=== PATIENT | female | born 1950 | race Caucasian/White ===

== ENCOUNTER → 2023-04-17 10:11 | Outpatient (REF) | payer MEDICARE, OTHER, SELFPAY ==
[2023-04-21 12:49] LABS: Alpha 1 Globulin 0.34 g/dL (0.19-0.46); SPEP IFE Reflex Not Done; Total Protein-Electrophoresis 7.1 g/dL (6.3-8.2)
== END ==
LOC: REG 10:11
PROVIDERS: ATTENDING PHYSICIAN Specialist; FAMILY PHYSICIAN Family Medicine
DX: E83.52 Hypercalcemia (principal); R79.89 Other specified abnormal findings of blood chemistry; N17.9 Acute kidney failure, unspecified; I10 Essential (primary) hypertension
CPT/HCPCS: 36415; 84155; 84165

== ENCOUNTER → 2023-04-20 09:25 | Outpatient (REF) | payer MEDICARE, OTHER, SELFPAY ==
[2023-04-23 16:41] LABS: 24 Hour Urine Total Volume Random mL; Urine Collection Length Random hr; Urine Free Kappa Light Chains 15.97 mg/L (0.00-32.90); Urine Free Lambda Light Chains 2.31 mg/L (0.00-3.79)
== END ==
LOC: REG 09:25
PROVIDERS: ATTENDING PHYSICIAN Specialist
DX: E83.52 Hypercalcemia (principal); R79.89 Other specified abnormal findings of blood chemistry; N17.9 Acute kidney failure, unspecified; I10 Essential (primary) hypertension
CPT/HCPCS: 83521; 84156; 86335

== ENCOUNTER → 2023-07-28 12:55 | Outpatient (REF) | payer MEDICARE, OTHER, SELFPAY | LOC: RAD 12:55 | PROVIDERS: ATTENDING PHYSICIAN Nurse Practitioner Family; FAMILY PHYSICIAN Family Medicine | DX: S39.011A Strain of muscle, fascia and tendon of abdomen, initial encounter (principal) | CPT/HCPCS: 72110; 73502 ==

== ENCOUNTER 2023-10-28 00:55 | Emergency (ER) | payer MEDICARE, OTHER, SELFPAY ==
[2023-10-28 00:58] VITALS: BP 164/69
[2023-10-28 01:01] VITALS: BP 164/69
[2023-10-28 01:08] VITALS: BMI 35.6
--- NOTE | 2023-10-28 01:31 | ED.GENMED ---
History of Present Illness
<Nick Kiser MD - Last Filed: 10/29/23 18:28>
General
Chief Complaint: Musculo-Skeletal Complaint
Source: patient
Exam Limitations: none
Time Seen by Provider: 10/28/23 01:04
Nursing documentation reviewed up to this point in time: agreed with
History of Present Illness
History of Present Illness:
Patient presents to ED secondary to worsening right thigh/leg/knee pain, after her leg gave out while she was walking into her house with her . Patient denies falling, as was able to hold onto her. Patient was able to crawl up the
steps into her bed. However, patient was unable to sleep secondary to worsening pain. Denies any other injuries. Denies loss of sensation or weakness. Of note, patient has had 8-week history of intermittent bilateral leg 'nerve pain', which has
not been evaluated. Patient has attributed her pain to sciatica or pain developing from previous hip surgery.
Past History
<Nick Kiser MD - Last Filed: 10/29/23 18:28>
Past History
ED Past Medical History: HTN and Hypercholesterolemia
ED Past Surgical History: Appendectomy, Cholecystectomy, , Gynecological (Total hysterectomy) and Orthopedic
Social History
Tobacco: Former smoker
Alcohol: None
Drug: None
Personal:
Living: with family
Employment: Employed
Family History
Family History: Other (Noncontributory)
Review of Systems
<Nick Kiser MD - Last Filed: 10/29/23 18:28>
Review of Systems
Allergies reviewed?: Yes
All Other Systems: ROS reviewed and negative except as documented in HPI and ROS
Constitutional: Reports no symptoms
Musculoskeletal: Reports other (knee/thigh pain)
Skin: Reports no symptoms
Neurological: Reports no symptoms; Denies weakness or numbness
Phy Exam
<Nick Kiser MD - Last Filed: 10/29/23 18:28>
Physical Exam
Physical Exam:
Physical Exam
General: mild painful distress, not acutely ill. afebrile
Head: nc/at. eomi
Neck: supple. normal range of motion
Neuro: alert and oriented. no focal neurological deficits
Skin: no rash
Psychiatric: well kept. interactive and cooperative
Extremities: RLE - mild lateral/medial knee tenderness to palpation without swelling/ecchymosis/erythema. no deformity
Course
<Nick Kiser MD - Last Filed: 10/29/23 18:28>
Orders/Labs/Results
Orders:
Orders
10/28/23 01:30
Ibuprofen [Motrin] 600 mg PO NOW STA
Oxycodone/Acetaminophen [Percocet 5/325] 1 tablet PO NOW STA
10/28/23 01:31
CR Knee- Right 4 Or More View* Urgent
Comment:
Reason For Exam: trauma
10/28/23 03:43
Case Management Consult ONCE
Case Management Consult: Discharge Planning
PT Consult [Pt Eval And Treat] Urgent
Activity Level: Out of Bed-Early Mobility
Vital Signs
Initial and Last Documented VS:
Initial Vital Signs
Temp Pulse Resp BP Pulse Ox
98.2 F 68 18 164/69 96
10/28/23 00:58 10/28/23 00:58 10/28/23 00:58 10/28/23 00:58 10/28/23 00:58
Last Documented Vital Signs
Temp Pulse Resp BP Pulse Ox
98 F 71 16 141/62 99
10/28/23 04:18 10/28/23 13:40 10/28/23 13:40 10/28/23 13:40 10/28/23 13:40
<Ernesto Sequeira DO - Last Filed: 10/28/23 13:27>
Orders/Labs/Results
Orders:
Orders
10/28/23 01:30
Ibuprofen [Motrin] 600 mg PO NOW STA
Oxycodone/Acetaminophen [Percocet 5/325] 1 tablet PO NOW STA
10/28/23 01:31
CR Knee- Right 4 Or More View* Urgent
Comment:
Reason For Exam: trauma
10/28/23 03:43
Case Management Consult ONCE
Case Management Consult: Discharge Planning
PT Consult [Pt Eval And Treat] Urgent
Activity Level: Out of Bed-Early Mobility
Vital Signs
Initial and Last Documented VS:
Initial Vital Signs
Temp Pulse Resp BP Pulse Ox
98.2 F 68 18 164/69 96
10/28/23 00:58 10/28/23 00:58 10/28/23 00:58 10/28/23 00:58 10/28/23 00:58
Last Documented Vital Signs
Temp Pulse Resp BP Pulse Ox
98 F 71 16 141/62 99
10/28/23 04:18 10/28/23 13:40 10/28/23 13:40 10/28/23 13:40 10/28/23 13:40
<Nick Kiser MD - Last Filed: 10/29/23 18:28>
*Critical Care Note
Total Time (30-74mins, 75-104mins- exclusive of procedures): Not Applicable
<Ernesto Sequeira DO - Last Filed: 10/28/23 13:27>
Update Note
Update Note:
Patient seen by case management. Offered some resources. Case management states patient does not want to pay for short-term rehab and will follow-up as an outpatient.
0349 patient reassessed. Continues to report inability to stand due to pain. Patient admits that the symptoms have been ongoing for months. She got out of her car today and the pain was much worse. She did not fall or have any new injury. On
exam there is no redness. There is no crepitus. She complains of pain in the posterior upper proximal calf and behind the knee. He reports sometimes pain radiates up toward her buttocks. She has normal dorsalis pedis pulse on the right lower
extremity and her foot is warm and well-perfused. There is no evidence of DVT as there is no palpable cord or edema. She has tenderness when I palpate the posterior calf diffusely. I do not appreciate on exam and effusion. There is no knee
redness or swelling. The patient and her are wondering why they cannot be admitted for an MRI. There is no indication for acute hospitalization. Patient states she just cannot go home because she cannot ambulate. She admits that she had
multiple injections on her left side in the past that 'did not work'. She reports some frustration with that. Will trial course of steroids in case this is neuropathic
ED Attending Note
<Nick Kiser MD - Last Filed: 10/29/23 18:28>
-
Portions of this chart may have been created with voice recognition software.� Occasional wrong word or��sound alike� substitutions may have occurred due to the inherent limitations of voice recognition software.
Discharge Plan
Departure
Patient Disposition: Home (Routine Discharge)
Date of Disposition: 10/28/23
Time of Disposition: 09:35
Patient with high blood pressure during this ER visit?: Yes
Discharge Problem:
Leg pain
Prescriptions:
New
prednisone 10 mg Tablet
See Rx Instructions .ROUTE .COMPLEX Qty: 30 0RF
Rx Instructions:
Take By Mouth:
40 mg daily x3 days, 30 mg daily x3 days,
20 mg daily x3 days, 10 mg daily x3 days.
No Action
aspirin 81 mg Tablet,Delayed Release (Dr/Ec)
81 mg PO DAILY
alprazolam 0.5 mg Tablet
0.5 mg PO HSPRN PRN (Reason: SLEEP)
acetaminophen 325 mg Tablet
500 mg PO QIDPRN PRN (Reason: mild pain)
cholecalciferol (vitamin D3) 50 mcg (2,000 unit) tablet
2,000 units PO DAILY
nifedipine 60 mg Tablet Extended Release
60 mg PO BID Qty: 60 0RF
oxybutynin chloride 10 mg Tablet Extended Release 24hr
10 mg PO DAILY
pravastatin 40 mg Tablet
40 mg PO HS
melatonin 5 mg Tablet
5 mg PO HS
methylprednisolone [Medrol (Gage)] 4 mg tablets,dose pack
See Rx Instructions .ROUTE .COMPLEX Qty: 21 0RF
Rx Instructions:
orally per package directions
oxycodone 5 mg tablet
5 mg PO TID PRN (Reason: Pain) Qty: 8 0RF
dicyclomine 20 mg tablet
20 mg PO QID PRN (Reason: abdominal pain) Qty: 10 0RF
Referrals:
Wilda Reynolds MD [Family Provider] -
Activity Restrictions/Additional Instructions:
Leg pain
Please see your doctor in the next 3 to 5 days for follow-up and reevaluation. Return immediately for fevers, shortness of breath, weakness of any kind or any other concerns.
Interventions
Interventions:
*Risk Screen - Suicide Last Done: 10/28/23 04:10
*General Assessment Last Done: 10/28/23 01:07
*Neglect/Abuse Screening Last Done: 10/28/23 01:08
ED- Fall Risk Assessment Last Done: 10/28/23 01:09
*ED COVID-19 Vaccine History Last Done: 10/28/23 01:09
*Nursing Disposition Last Done: 10/28/23 13:40
ED-Musculoskeletal Assessment Last Done: 10/28/23 01:43
Discharge Date and Time
Discharge Date/Time: 10/28/23 13:41
Print Language: ESTONIAN
[2023-10-28] MEDS: PERCOCET 5/325 1 TABLET PO (02:07)
[2023-10-28] MEDS: MOTRIN 600 MG PO (02:07)
--- NOTE | 2023-10-28 04:11 | EDRN ---
Per ECT, pt's rt. knee DEVON wrapped. Pt. attempted x 2 to stand and walk utilizing walker, unable to dipak weight, screaming in pain both times per ECT. MD Rodgers aware, case management/PT/OT consult ordered.
[2023-10-28 04:18] VITALS: BP 148/75
--- NOTE | 2023-10-28 08:59 | CM ---
Addendum entered by Shadia Ndiaye 10/28/23 10:38:
and went back and forth deciding whether patient should come or not. Patient and decided they would like STR referrals placed. Will place via [facility]. They verbalized understanding and agreed that some facilities may be in
[place] area.
Addendum entered by Shadia Ndiaye 10/28/23 10:14:
Bedside RN shared with CM that patient has more questions about STR in regards to length of stay and pricing. CM shared it may be between $350-$550/day, but that woud have to be confirmed and finalized with whatever facility she chose. Patient
verbalized understanding and stated that paying out of pocket may be 'doable'.
Patient shared that she is anxious because her daughter is 'worked up' due to her cat being 12 years old and maybe needing to be 'put down'. Patient given CM's turning lathe tender to charge her phone while she attemps speaking with her daughter Face Time (while
daughter is at the vet).
Helena was given a list of facilities in [place] and near [place]. CM and patient agreed that CM would come back in about 15 minutes to check on her.
Above information shared with bedside RN and attending physician.
Addendum entered by Shadia Ndiaye 10/28/23 09:18:
VN consult placed via [facility] placed. Also discussed case with Meenu Dewitt, from [facility].
Original Note:
Chart reviewed. CM consult placed for discharge planning. Patient was seen by PT who recommended STR. CM introduced self and role. CM discussed recommendations with patient. Patient has straight medicare and verbalized that she has not had a 3-MN
stay at any other hospitals.
Patient shared that she would not be able to afford STR at this time. She would prefer to go home with PT. She has a first floor set up. Her works 3 days/week.
Above information shared with bedside RN and attending physician.
--- NOTE | 2023-10-28 12:08 | CM ---
Patient chose [facility]. Luzmaria in admissions said patient could come any time today.
Report: [phone]
[2023-10-28 13:40] VITALS: BP 141/62
== END 2023-10-28 13:41 | disposition home or self-care (01) ==
LOC: EMR 00:55
PROVIDERS: EMERGENCY PHYSICIAN Emergency Medicine; FAMILY PHYSICIAN Family Medicine
DX: M79.604 Pain in right leg (principal); E78.00 Pure hypercholesterolemia, unspecified; I10 Essential (primary) hypertension; Z87.891 Personal history of nicotine dependence; Z90.49 Acquired absence of other specified parts of digestive tract; Z90.710 Acquired absence of both cervix and uterus
CPT/HCPCS: 99283; 73564

== ENCOUNTER → 2024-08-05 12:52 | Outpatient (REF) | payer MEDICARE, OTHER, SELFPAY | LOC: HWRAD 12:52 | PROVIDERS: ATTENDING PHYSICIAN Physician Assistant; FAMILY PHYSICIAN Family Medicine; REFERRING PHYSICIAN Orthopaedic Surgery Adult Reconstructive Orthopaedic Surgery | DX: M25.561 Pain in right knee (principal) | CPT/HCPCS: 76882 ==

== ENCOUNTER → 2024-09-21 09:05 | Outpatient (REF) | payer MEDICARE, OTHER, SELFPAY ==
[2024-09-21 10:23] LABS: Hematocrit 43.5 % (37.0-47.0); Hemoglobin 14.1 g/dL (12.0-16.0); Mean Corp Hgb Conc. 32.4 g/dL (33.0-37.0); Mean Corpuscular Volume 89.5 fL (81.0-99.0); Nucleated Red Blood Cells % 0 %; Platelet Count 265 10^3/uL (130-400); Red Cell Dist. Width 13.2 % (11.5-14.5)
[2024-09-21 10:48] LABS: ALT (SGPT) 15 U/L (0-35); AST (SGOT) 19 U/L (14-36); Albumin 4.9 g/dl (3.5-5.0); Alkaline Phosphatase 93 U/L (38-126); Blood Urea Nitrogen 37 mg/dl (7-17); Calcium 9.5 mg/dl (8.4-10.2); Carbon Dioxide 23 mmol/L (22-30); Chloride 110 mmol/L (98-107); Glucose 93 mg/dl (70-99); HDL Cholesterol 59 mg/dl; LDL Cholesterol, Calculated 98 mg/dl; Potassium 4.6 mmol/L (3.5-5.1); Sodium 143 mmol/L (135-145); Total Protein 7.5 g/dl (6.3-8.2); Very Low Density Lipoprotein 33 mg/dl (0-30); eGFR 42.88
[2024-09-21 10:50] LABS: C-Reactive Protein < 5.00 mg/L (0.0-10.00)
[2024-09-21 11:00] LABS: LDL Cholesterol, Direct 94 mg/dl
[2024-09-21 11:07] LABS: Vitamin D, 25-OH*** 52.5 ng/mL (30-80)
[2024-09-21 11:57] LABS: Microalb - Urine Creatinine 226.000 mg/dl
[2024-09-21 12:02] LABS: Microalbumin, Random Urine 2.5 mg/dl (0.6-1.7)
[2024-09-21 13:56] LABS: Glycohemoglobin (HgbA1c) 5.7 % (4.0-5.6)
== END ==
LOC: REG 09:05
PROVIDERS: ATTENDING PHYSICIAN Ophthalmology; OTHER PHYSICIAN Family Medicine
DX: N18.32 Chronic kidney disease, stage 3b (principal); R73.03 Prediabetes; I10 Essential (primary) hypertension; E55.9 Vitamin D deficiency, unspecified; E78.2 Mixed hyperlipidemia; Z79.899 Other long term (current) drug therapy; E21.0 Primary hyperparathyroidism; H47.10 Unspecified papilledema
CPT/HCPCS: 36415; 80053; 80061; 82043; 82306; 82570; 83036; 83721; 83970; 84100; 84443; 85025; 85652; 86140

== ENCOUNTER 2025-01-17 21:08 | Inpatient (IN) | payer MEDICARE, OTHER, SELFPAY ==
[2025-01-17] VITALS (8 sets, daily range): BP systolic 125–162; BP diastolic 58–93; BMI 37.5; BMI 36.3
[2025-01-17 15:56] LABS: Hematocrit 42.1 % (37.0-47.0); Hemoglobin 14.2 g/dL (12.0-16.0); Mean Corp Hgb Conc. 33.7 g/dL (33.0-37.0); Mean Corpuscular Volume 88.1 fL (81.0-99.0); Nucleated Red Blood Cells % 0 %; Platelet Count 248 10^3/uL (130-400); Red Cell Dist. Width 12.5 % (11.5-14.5)
[2025-01-17 16:06] LABS: ALT (SGPT) 38 U/L (0-35); AST (SGOT) 80 U/L (14-36); Albumin 4.6 g/dl (3.5-5.0); Alkaline Phosphatase 102 U/L (38-126); Blood Urea Nitrogen 33 mg/dl (7-17); Calcium 9.6 mg/dl (8.4-10.2); Carbon Dioxide 27 mmol/L (22-30); Chloride 103 mmol/L (98-107); Glucose 97 mg/dl (70-99); Potassium 4.9 mmol/L (3.5-5.1); Sodium 135 mmol/L (135-145); Total Protein 7.6 g/dl (6.3-8.2); eGFR 39.23
[2025-01-17 16:49] LABS: Lipase > 4000 U/L (23-300)
[2025-01-17 17:02] LABS: Troponin I < 0.012 ng/ml
--- NOTE | 2025-01-17 17:35 | ED.GENMED ---
History of Present Illness
<Jonas Velázquez PA-C - Last Filed: 01/17/25 23:27>
General
Chief Complaint: Chest Pain
Source: patient
Time Seen by Provider: 01/17/25 17:15
History of Present Illness
History of Present Illness:
74-year-old female with past medical history of hypertension, hyperlipidemia, previous diverticulitis presenting to the emergency department for evaluation of abdominal pain that started earlier today described to be more generalized accompanied
with 4 episodes of loose bowels, the loose bowels improved after taking Imodium as well as Pepto-Bismol but a few hours ago the pain localized to the epigastrium and periumbilical region and radiated into her back accompanied with nausea but no
vomiting. Pain is described to be 12 out of 10, constant, sharp and burning, no relief with the aforementioned medications. Patient denies any fevers, chills, rigors, urinary symptoms, shortness of breath, palpitations, diaphoresis, exertional
dyspnea orthopnea, cough or any other concerns. Denies any history of similar. Social history was noncontributory.
Past History
<Jonas Velázquez PA-C - Last Filed: 01/17/25 23:27>
Past History
ED Past Medical History: HTN, Hypercholesterolemia and Psychiatric
ED Past Surgical History: Appendectomy, Cholecystectomy, , Gynecological (Total hysterectomy) and Orthopedic
Social History
Tobacco: Former smoker
Alcohol: None
Drug: None
Personal:
Living: with family
Employment: Employed
Family History
Family History: Other (Noncontributory)
Review of Systems
<DRISS Eden Last Filed: 01/17/25 23:27>
Review of Systems
All Other Systems: ROS reviewed and negative except as documented in HPI and ROS
Phy Exam
<DRISS Eden Last Filed: 01/17/25 23:27>
Physical Exam
Physical Exam:
GENERAL: Alert , appears very uncomfortable, shaking
EYE: clear conjunctiva b/l
HEAD: NCAT
ENT: o/p clr, mmm.
CARDIAC: Regular rate and rhythm .
LUNGS: Clear breath sounds bilaterally, no acute respiratory distress, no wheezes/rales/rhonchi
ABDOMEN: Soft, tender in epigastrum and periumbilically, no r/g, no cvat
NEUROLOGICAL: Alert and oriented
SKIN: Warm and dry, skin intact.
MUSCULOSKELETAL: well perfused.
PSYCH: Normal and appropriate interaction.
Scores
<Jonas Velázquez PA-C - Last Filed: 01/17/25 23:27>
Heart Failure Risk
Heart Failure Risk Score: Not Applicable
Heart Score for Chest Pain Patients
STEMI patient?: Not applicable
Withdrawal Assessment of Alcohol
Withdrawal Assessment Completed?: Not applicable
Course
<Jonas Velázquez PA-C - Last Filed: 01/17/25 23:27>
Orders/Labs/Results
Orders:
Orders
01/17/25 15:20
Electrocardiogram (*1) Urgent
Reason for Study: Chest Pain
EKG- Treatment ONCE
01/17/25 15:39
Complete Blood Count/With Diff Urgent
Comprehensive Metabolic Panel Urgent
Lipase Urgent
01/17/25 16:11
Troponin I Urgent
01/17/25 17:31
0.9% Sodium Chloride 1000 ml [Nss] 1,000 ml IV BOLUS
HYDROmorphone [Dilaudid] 1 mg IV NOW STA
Ondansetron Injectable [Zofran] 4 mg IV NOW STA
01/17/25 17:33
CT Abd/pel Without Iv Or Oral Urgent
Comment:
Reason For Exam: abd pain, lipase >4000, cant tolerate PO, CKD
01/17/25 19:45
HYDROmorphone [Dilaudid] 1 mg IV NOW STA
01/17/25 20:28
Admit/Transfer Patient As Directed
Co-Sign Provider:
Level of Care: Inpatient admission
Assign to:: Medical/Surgical
Physician / Group: Ventura Zapien
Diagnosis: Acute pancreatitis
Reason for Hospitalization: Acute pancreatitis
Expected length of stay greater than two midnights?: Yes
ELOS- Estimated Length of Stay in days: 3
I certify the patient meets the requirements for IP care: Yes
PRN Pain Medication Management As Directed
May give lesser potent ordered pain med per pt: Yes
preference::
Protocol:: Medication orders for pain may be administered in a
manner that supports deferring to patient preference
when the pt is:
- Requesting an ordered lesser potent pain medication.
Least to most potent pain medications are defined
as: acetaminophen < NSAID < tramadol < opioids
(morphine, oxycodone, hydromorphone).
- Requesting a lesser dose of the same medication IF
ORDERED.
- Requesting a less intrusive route of administration
if both routes are prescribed by the provider (PO <
IV).
01/17/25 20:29
Code Status As Directed
Resuscitation Status: Full Code
01/17/25 22:09
Acetaminophen [Tylenol] 650 mg PO Q4HPRN PRN
Bisacodyl [Dulcolax] 10 mg RECTAL [id number] PRN
Docusate W/Senna [Senokot-S] 1 tablet PO BIDPRN PRN
HYDROmorphone [Dilaudid] 1 mg IV Q3HPRN PRN
Lactated Ringers [Lr] 1,000 ml IV 150 mls/hr
Ondansetron Injectable [Zofran] 4 mg IV Q6HPRN PRN
Polyethylene Glycol Powder [Miralax] 17 grams PO DAILYPRN PRN
Pravastatin Sodium [Pravachol] 40 mg PO HS
Trazodone [Desyrel] 75 mg PO HS
01/17/25 22:09
GASTROINTESTINAL CONSULT Routine
Consulting Provider: Susan Florence
Was physician already notified: Yes
Activity As Directed
Activity Level: Ambulate
Pneumatic Compression Sleeves As Directed
Type: Knee high
Vital Signs As Directed
Frequency: Per unit guidelines
DX Deep Vein Thrombosis Video Routine
01/18/25 Breakfast
NPO
Allow oral meds: Yes
Allow clear liquids: No
Basic Metabolic Panel IN AM
Complete Blood Count/No Diff IN AM
Lipase IN AM
01/18/25 08:00
NIFEdipine EXTENDED RELEASE [Procardia Xl (Extended Release)] 60 mg PO BID
Abnormal Lab Results
01/17/25
15:39
Absolute Neuts (auto) 8.0 H 10^3/uL
(1.4-6.5)
Absolute Monos (auto) 0.8 H 10^3/uL
(0.1-0.6)
Neutrophils % 75.4 H %
(42.2-75.2)
Lymphocytes % 15.0 L %
(20.5-51.1)
BUN 33 H mg/dl
(7-17)
Creatinine 1.4 H mg/dL
(0.6-1.0)
AST 80 H U/L
(14-36)
ALT 38 H U/L
(0-35)
Lipase > 4000 H* U/L
(23-300)
01/17/25 15:39
01/17/25 15:39
Vital Signs
Initial and Last Documented VS:
Initial Vital Signs
Temp Pulse Resp BP Pulse Ox
97.9 F 76 18 162/90 97
01/17/25 15:26 01/17/25 15:26 01/17/25 15:26 01/17/25 15:26 01/17/25 15:26
Last Documented Vital Signs
Temp Pulse Resp BP Pulse Ox
98.0 F 84 20 158/93 96
01/17/25 22:15 01/17/25 22:15 01/17/25 22:15 01/17/25 22:15 01/17/25 22:15
<Jorge Angel, DO - Last Filed: 01/17/25 17:40>
Orders/Labs/Results
Orders:
Orders
01/17/25 15:20
Electrocardiogram (*1) Urgent
Reason for Study: Chest Pain
EKG- Treatment ONCE
01/17/25 15:39
Complete Blood Count/With Diff Urgent
Comprehensive Metabolic Panel Urgent
Lipase Urgent
01/17/25 16:11
Troponin I Urgent
01/17/25 17:31
0.9% Sodium Chloride 1000 ml [Nss] 1,000 ml IV BOLUS
HYDROmorphone [Dilaudid] 1 mg IV NOW STA
Ondansetron Injectable [Zofran] 4 mg IV NOW STA
01/17/25 17:33
CT Abd/pel Without Iv Or Oral Urgent
Comment:
Reason For Exam: abd pain, lipase >4000, cant tolerate PO, CKD
01/17/25 19:45
HYDROmorphone [Dilaudid] 1 mg IV NOW STA
01/17/25 20:28
Admit/Transfer Patient As Directed
Co-Sign Provider:
Level of Care: Inpatient admission
Assign to:: Medical/Surgical
Physician / Group: Ventura Zapien
Diagnosis: Acute pancreatitis
Reason for Hospitalization: Acute pancreatitis
Expected length of stay greater than two midnights?: Yes
ELOS- Estimated Length of Stay in days: 3
I certify the patient meets the requirements for IP care: Yes
PRN Pain Medication Management As Directed
May give lesser potent ordered pain med per pt: Yes
preference::
Protocol:: Medication orders for pain may be administered in a
manner that supports deferring to patient preference
when the pt is:
- Requesting an ordered lesser potent pain medication.
Least to most potent pain medications are defined
as: acetaminophen < NSAID < tramadol < opioids
(morphine, oxycodone, hydromorphone).
- Requesting a lesser dose of the same medication IF
ORDERED.
- Requesting a less intrusive route of administration
if both routes are prescribed by the provider (PO <
IV).
01/17/25 20:29
Code Status As Directed
Resuscitation Status: Full Code
01/17/25 22:09
Acetaminophen [Tylenol] 650 mg PO Q4HPRN PRN
Bisacodyl [Dulcolax] 10 mg RECTAL [id number] PRN
Docusate W/Senna [Senokot-S] 1 tablet PO BIDPRN PRN
HYDROmorphone [Dilaudid] 1 mg IV Q3HPRN PRN
Lactated Ringers [Lr] 1,000 ml IV 150 mls/hr
Ondansetron Injectable [Zofran] 4 mg IV Q6HPRN PRN
Polyethylene Glycol Powder [Miralax] 17 grams PO DAILYPRN PRN
Pravastatin Sodium [Pravachol] 40 mg PO HS
Trazodone [Desyrel] 75 mg PO HS
01/17/25 22:09
GASTROINTESTINAL CONSULT Routine
Consulting Provider: Susan Florence
Was physician already notified: Yes
Activity As Directed
Activity Level: Ambulate
Pneumatic Compression Sleeves As Directed
Type: Knee high
Vital Signs As Directed
Frequency: Per unit guidelines
DX Deep Vein Thrombosis Video Routine
01/18/25 Breakfast
NPO
Allow oral meds: Yes
Allow clear liquids: No
Basic Metabolic Panel IN AM
Complete Blood Count/No Diff IN AM
Lipase IN AM
01/18/25 08:00
NIFEdipine EXTENDED RELEASE [Procardia Xl (Extended Release)] 60 mg PO BID
Abnormal Lab Results
01/17/25
15:39
Absolute Neuts (auto) 8.0 H 10^3/uL
(1.4-6.5)
Absolute Monos (auto) 0.8 H 10^3/uL
(0.1-0.6)
Neutrophils % 75.4 H %
(42.2-75.2)
Lymphocytes % 15.0 L %
(20.5-51.1)
BUN 33 H mg/dl
(7-17)
Creatinine 1.4 H mg/dL
(0.6-1.0)
AST 80 H U/L
(14-36)
ALT 38 H U/L
(0-35)
Lipase > 4000 H* U/L
(23-300)
01/17/25 15:39
01/17/25 15:39
Vital Signs
Initial and Last Documented VS:
Initial Vital Signs
Temp Pulse Resp BP Pulse Ox
97.9 F 76 18 162/90 97
01/17/25 15:26 01/17/25 15:26 01/17/25 15:26 01/17/25 15:26 01/17/25 15:26
Last Documented Vital Signs
Temp Pulse Resp BP Pulse Ox
98.0 F 84 20 158/93 96
01/17/25 22:15 01/17/25 22:15 01/17/25 22:15 01/17/25 22:15 01/17/25 22:15
<Jonas Velázquez PA-C - Last Filed: 01/17/25 23:27>
MDM/Problems Addressed
Differential Diagnosis Includes:
GERD
Gastritis
PUD
Pancreatitis
ACS
Dissection
Colitis
Diverticulitis
MDM/Problems Addressed:
74-year-old female presenting to the ER for evaluation of GI upset accompanied with severe abdominal pain which started earlier today. No fevers. Hemodynamically stable. Labs were initiated in triage show no leukocytosis, normal hemoglobin.
Chemistry shows stable CKD, slightly elevated AST/ALT and a lipase of greater than 4000 which likely explains the patient's current pain. No obvious etiology for her pancreatitis as patient denied any alcohol history, has a previous
cholecystectomy, no elevated triglycerides and no known trauma. Medication list reviewed and unlikely to be caused by any of the patient's current meds. Will obtain a noncontrast CT scan. Pain control with IV Dilaudid, Zofran for nausea and IV
fluids. Plan for admission
<Jonas Velázquez PA-C - Last Filed: 01/17/25 23:27>
*Radiology
Radiology exam reviewed: radiology read reviewed
*Pulse Oximetry
SaO2: 97
Oxygen Mode of Delivery: Room air
Patient hypoxic: no
*EKG
Interpreted by ED Provider?: Yes
Heart Rate: 73
Rate: normal
Rhythm: sinus
[place]: left axis deviation
Ischemia: no ischemia
*Scouring Train Operator Chief Interpretation
Rate: normal
Heart Rate: 82
Rhythm: sinus
*Critical Care Note
Total Time (30-74mins, 75-104mins- exclusive of procedures): Not Applicable
Data Reviewed
Review of Other/Old Records Reveals: Labs and Records
<Jonas Velázquez PA-C - Last Filed: 01/17/25 23:27>
Patient Management
Discussion with other providers: Hospitalist
Escalation/DeEscalation of care consider admission/obs:
Patient CT scan consistent with her exam findings as well as laboratory findings of acute pancreatitis. Patient accepted to hospitalist service for continued evaluation and treatment.
ED Attending Note
<Jonas Velázquez PA-C - Last Filed: 01/17/25 23:27>
-
Portions of this chart may have been created with voice recognition software.� Occasional wrong word or��sound alike� substitutions may have occurred due to the inherent limitations of voice recognition software.
<Jorge Angel DO - Last Filed: 01/17/25 17:40>
ED Attending Note
Patient seen and examined by attending physician: Yes
I performed the substantive portion of visit, reviewed & personally made and approve the management plan that is documented in note by myself or PEGGY.: Yes
ED Attending Note:
I evaluated the patient at bedside. The patient appears somewhat uncomfortable, mild renal insufficiency, marked lipase elevation at greater than 4000 but LFTs are relatively unremarkable. She denies history of alcoholism and has had a
cholecystectomy in the past. Planning to admit for n.p.o./IV fluids. The patient tells me she really does not want to have an MRI/MRCP.
Discharge Plan
Departure
Patient Disposition: Admit
Date of Disposition: 01/17/25
Time of Disposition: 19:28
Presentation/result/management discussed w/ accepting MD/DO: Hospitalist
Discharge Problem:
Acute pancreatitis
Interventions
Interventions:
*Risk Screen - Suicide Last Done: 01/17/25 15:29
*General Assessment Last Done: 01/17/25 15:29
*Neglect/Abuse Screening Last Done: 01/17/25 15:29
*ED- Fall Risk Assessment Last Done: 01/17/25 18:20
*ED COVID-19 Vaccine History Last Done: 01/17/25 22:48
*ED Influenza Vaccine History Last Done: 01/17/25 15:29
*Nursing Disposition Last Done: 01/17/25 22:03
ED- Cardiac Assessment Last Done: 01/17/25 17:55
Discharge Date and Time
Discharge Date/Time: 01/17/25 22:04
[2025-01-17] MEDS: DILAUDID 1 MG IV ×2 (17:42→19:49)
[2025-01-17] MEDS: ZOFRAN 4 MG IV (17:43)
[2025-01-17] MEDS: NSS 1000 IV (17:44)
--- NOTE | 2025-01-17 19:34 | HPS.HSE ---
Addendum entered and electronically signed by Ventura Zapien DO 01/17/25 22:15:
Patient seen and examined independently. Agree with findings and plan as set forth by NETTE Taylor.
Patient is a 74y F with H significant for hypertension and CKD who presents to ED complaining of epigastric pain, back pain and nausea. Patient states that symptoms started this afternoon and have been persistent / severe since that time. She
had no emesis until she arrived in the ED and has had one episode of non-bloody emesis here. Patient denies any prior h/o similar symptoms. She is s/p prior cholecystectomy. She does not drink alcohol at all.
Ass:
Acute Pancreatitis
Benign Hypertension
CKD III
Anxiety / Depression
Obesity due to excess calories
Plan:
Admit for further evaluation and treatment.
NPO, IVFs, pain control and antiemetics.
Unclear etiology of pancreatitis.
GI consulted for further evaluation.
Original Note:
Family Physician
-
Family Physician: Wilda Reynolds
Chief Complaint
-
epigastric pain
History of Present Illness
Patient is a 74-year-old female with past medical history significant for hypertension, hypercholesterolemia, chronic kidney disease stage 3b and anxiety/depression who presented to [facility] ED for evaluation of epigastric pain that radiated to back.
Patient states that pain started acutely this afternoon while at rest with nausea. She also reports 4 episodes of loose stools today, not dark in color or bleeding present. She took Pepto-Bismol and Imodium. After taking medications patient states
pain was persistent and she has not had another episode of loose stools. Pain described as sharp and constant at a 10 out of 10. Denies any fever, chills, cough, shortness of breath, chest pain, palpitations, vomiting or urinary symptoms.
Medical History
Past Medical History
Past Medical History: Reports Other
Additional Past Medical History:
hypertension
hypercholesterolemia
chronic kidney disease stage 3b
anxiety/depression
lymphedema
hypercalcemia
hyperparathyroidism
sigmoid diverticulitis/diverticulosis
Past Surgical History: Reports Other
Additional Past Surgical History:
appendectomy
cholecystectomy
hysterectomy
[place] - subtotal parathyroidectomy 08/04/23
Right total knee replacement 03/2024
Social History
Tobacco: Former Smoker
Alcohol: None
Personal:
Living: With Family
Employment: Retired
Family History
Family History: Not pertinent
Allergies / Home Medications
Allergies reflects when Allergies were last updated in [facility].
Home Medications with original date entered in [facility]
Allergy/Medication List:
Allergies
Allergy/AdvReac Type Severity Reaction Status Date / Time
cortisone Allergy flushing, Verified 01/17/25 15:29
elevated BP
house dust Allergy sneezing, Verified 01/17/25 15:29
sinus
problems
morphine Allergy Nausea / Verified 01/17/25 15:29
Vomiting
pollen extracts Allergy sneezing, Verified 01/17/25 15:29
sinus
problems
tramadol Allergy Sedation Verified 01/17/25 15:29
'too
strong'
DEVON Inhibitors AdvReac Upset Verified 01/17/25 15:29
stomach
amoxicillin AdvReac upset Verified 01/17/25 15:29
stomach
bacitracin AdvReac upset Verified 01/17/25 15:29
stomach
dextrose AdvReac stomach Verified 01/17/25 15:29
cramps
erythromycin base AdvReac STOMACH Verified 01/17/25 15:29
(Erythromycin Base) CRAMPING
eszopiclone (From Lunesta) AdvReac headache Verified 01/17/25 15:29
and drowsy
levofloxacin (From Levaquin) AdvReac STOMACH Verified 01/17/25 15:29
CRAMPING
meloxicam AdvReac upset Verified 01/17/25 15:29
stomach
potassium AdvReac GI problems Verified 01/17/25 15:29
tizanidine (From Zanaflex) AdvReac Sedation Verified 01/17/25 15:29
Home Medications
nifedipine 60 mg tablet,extended release 60 mg PO BID #60 tabs 05/05/22
pravastatin 40 mg tablet 40 mg PO HS High Cholesterol 11/15/22
baclofen 10 mg tablet 10 mg PO TIDPRN PRN spasms 01/17/25
trazodone 50 mg tablet 75 mg PO HS 01/17/25
Review of Systems
-
History Source: Patient
Constitutional: Denies Fever or Chills
EENT: Denies Sore Throat
Respiratory: Denies Cough, Hemoptysis or Trouble Breathing
Cardiac: Denies Chest Pain, Diaphoresis, Palpitations or Syncope
Abdomen/GI: Reports Abdominal Pain (epigastric radiating to back and constant ), Nausea and Diarrhea; Denies Vomiting, Bloody Stools or Black Stools
: Denies Dysuria, Frequency or Urgency
Musculoskeletal: Denies Joint Pain
Skin: Denies Rash
Neurological: Denies Dizzy, Headache, Weakness or Numbness
Physical Exam
Vital Signs
Vital Signs
Temp Pulse Resp BP Pulse Ox
97.9 F 66 16 139/67 92
01/17/25 15:26 01/17/25 18:45 01/17/25 18:45 01/17/25 18:27 01/17/25 18:45
Physical Exam
General: Well Developed, Well Nourished, Conversant and Obese
HEENT: NormoCephalic, Moist mucous membranes, PERRLA, Nose Appears Normal and Ears Appear Normal
Respiratory: Clear and Non Labored Respirations
Cardiac: S1/S2 and Regular Rhythm
GI: Soft, Non Distended, Normal Bowel Sounds and Tender (mild tenderness in epigastric )
Musculoskeletal: No Clubbing, No Cyanosis and No Edema
Skin: Warm and IV/Catheter Site
Neuro: Awake and AO x 3
Psych: Calm
Laboratory Results
-
01/17/25 15:39
01/17/25 15:39
Laboratory Results
Total Bilirubin 0.8 mg/dl (0.2-1.3) 01/17/25 15:39
AST 80 U/L (14-36) H 01/17/25 15:39
ALT 38 U/L (0-35) H 01/17/25 15:39
Alkaline Phosphatase 102 U/L (38-126) 01/17/25 15:39
Troponin I < 0.012 ng/ml 01/17/25 16:11
Lipase > 4000 U/L (23-300) H* 01/17/25 15:39
Data Reviewed
-
CT Scan: Report Reviewed by me (Abd/Pel: 1. ACUTE INTERSTITIAL EDEMATOUS PANCREATITIS. 2. Moderate to severe chronic bilateral renal disease. 3. Moderate to severe intrahepatic biliary dilatation. 4. Previous cholecystectomy, appendectomy,
and hysterectomy. 5. Severe diverticulosis in the sigmoid colon. 6. Severe multi)
Lab Data: Labs Reviewed by me (BUN 33, creat 1.4, eGFR 39.23, AST 80, ALT 38, lipase >4000)
Impression/Plan
-
IMPRESSION/PLAN:
#epigastric pain 2/2 pancreatitis vs. diverticulitis vs. GERD
acute onset 10/10 sharp epigastric pain radiating to back with associated loose stools and nausea
no alleviating or provoking factors
AST 80, ALT 38, lipase >4000
EKG: SINUS RHYTHM WITH PREMATURE SUPRAVENTRICULAR COMPLEXES
LEFT AXIS DEVIATION
MODERATE VOLTAGE CRITERIA FOR LVH, MAY BE NORMAL VARIANT ( R in aVL , [place] product )
POSSIBLE ANTERIOR INFARCT (CITED ON OR BEFORE 07-Mar-2023)
Abd/Pel CT: 1. ACUTE INTERSTITIAL EDEMATOUS PANCREATITIS.
2. Moderate to severe chronic bilateral renal disease.
3. Moderate to severe intrahepatic biliary dilatation.
4. Previous cholecystectomy, appendectomy, and hysterectomy.
5. Severe diverticulosis in the sigmoid colon.
6. Severe multilevel lumbar and thoracic discogenic degenerative disease.
7. Bilateral total hip arthroplasties in place.
- Admit to med/surg
- Consult GI
- IVF LR 150cc/hr
- pain regimen
- antiemetics
#hypertension
- continue nifedipine
#hypercholesterolemia
- continue pravastatin
#anxiety/depression
- continue trazodone
#chronic kidney disease stage 3b
BUN 33, creat 1.4, eGFR 39.23
- appears stable, monitor BMP
Code status: full code
DVT prophylaxis: heparin sq
[2025-01-17] MEDS: LR 1000 IV (22:27)
[2025-01-17] MEDS: COMPAZINE 5 MG IV (23:00)
--- NOTE | 2025-01-17 23:00 | PTCARENOTE ---
Received patient from ED via stretcher. Patient stood and pivoted from stretcher to bed x2 assist. Patient tremulous, vomiting, and drowsy upon arrival. [employer] made aware, orders for PRN IV compazine. AAOx3, no current complaints of pain. Oriented
patient to room and placed call ventura within reach.
[2025-01-17] MEDS: PRAVACHOL 40 MG PO (23:02)
[2025-01-17] MEDS: DESYREL 75 MG PO (23:02)
[2025-01-18] MEDS: LR 1000 IV ×3 (05:39→19:16)
[2025-01-18 07:45] VITALS: BP 159/79
[2025-01-18 07:48] LABS: Hematocrit 37.5 % (37.0-47.0); Hemoglobin 12.2 g/dL (12.0-16.0); Mean Corp Hgb Conc. 32.5 g/dL (33.0-37.0); Mean Corpuscular Volume 90.8 fL (81.0-99.0); Platelet Count 206 10^3/uL (130-400); Red Cell Dist. Width 12.7 % (11.5-14.5)
[2025-01-18 08:40] LABS: Blood Urea Nitrogen 22 mg/dl (7-17); Calcium 8.6 mg/dl (8.4-10.2); Carbon Dioxide 26 mmol/L (22-30); Chloride 107 mmol/L (98-107); Estimated Creatinine Clearance 50 ml/min; Glucose 86 mg/dl (70-99); Potassium 4.3 mmol/L (3.5-5.1); Sodium 139 mmol/L (135-145); eGFR 52.40
[2025-01-18] MEDS: ZOFRAN 4 MG IV (08:53)
[2025-01-18] MEDS: DILAUDID 1 MG IV (08:53)
[2025-01-18 08:54] LABS: Lipase 2231 U/L (23-300)
[2025-01-18] MEDS: PROCARDIA XL (EXTENDED RELEASE) 60 MG PO ×2 (08:59→20:52)
--- NOTE | 2025-01-18 09:40 | CON.GI ---
Addendum entered and electronically signed by Susan Florence MD 01/18/25 12:07:
I personally performed a history and physical exam of the patient and discussed management with the resident. I reviewed the resident's note and agree with the documented findings and plan of care HPI/CC.
This patient is a 74-year-old woman with a history of an appendectomy, cholecystectomy who was admitted for mid abdominal pain. She did have a lipase that was elevated and a CT that showed acute pancreatitis. She did have a CAT scan approximately
a year ago that commented on some abnormality in her pancreas and recommended an MRI electively which does not appear to have been done.
abd: soft tender
impression:
pancreatitis etiology unclear, no alcohol
plan:
IVFs
pain meds
check triglycerides, IGg4
NPO
MRI/MRCP
Original Note:
Consultation
-
Date/Time Consultation Requested: 01/17/25 22:09
Date/Time Consultation Performed: 01/18/25 8:00
Requesting Provider: Domi Freeman
Performing Provider: Dr. Susan Florence
Medical History
Chief Complaint / HPI
Chief Complaint: pancreatitis
History of Present Illness:
74yoF PMH HTN, CKD, prior cholecystectomy, appendectomy, hysterectomy presenting with severe abdominal pain and episode of emesis in ED.
Pt reported having 10/10 pain across her abdomen and in her lower chest that radiated to her back. She was initially concerned about an IN and promptly presented to the ED where they did further work up finding lipase >[address] evidence of
pancreatitis. Pt denies alcohol use, recent medication changes, or recent travel. No FH or personal hx of autoimmune disorders.
Today, pt reports improved pain. She recently had dose of dilaudid, but reports no pain at rest, just severe pain to palpation on the left side. No nausea or vomiting since Ed yesterday.
Past Medical History
Past Medical History: HTN, Hypercholesterolemia and Renal Failure
Past Surgical History: Appendectomy, Cholecystectomy (over 50 years ago) and Gynecological
Social History
Alcohol: None
Drug: None
Allergies / Home Medications
Allergy/AdvReac Type Severity Reaction Status Date / Time
cortisone Allergy flushing, Verified 01/17/25 15:29
elevated BP
house dust Allergy sneezing, Verified 01/17/25 15:29
sinus
problems
morphine Allergy Nausea / Verified 01/17/25 15:29
Vomiting
pollen extracts Allergy sneezing, Verified 01/17/25 15:29
sinus
problems
tramadol Allergy Sedation Verified 01/17/25 15:29
'too
strong'
DEVON Inhibitors AdvReac Upset Verified 01/17/25 15:29
stomach
amoxicillin AdvReac upset Verified 01/17/25 15:29
stomach
bacitracin AdvReac upset Verified 01/17/25 15:29
stomach
dextrose AdvReac stomach Verified 01/17/25 15:29
cramps
erythromycin base AdvReac STOMACH Verified 01/17/25 15:29
(Erythromycin Base) CRAMPING
eszopiclone (From Lunesta) AdvReac headache Verified 01/17/25 15:29
and drowsy
levofloxacin (From Levaquin) AdvReac STOMACH Verified 01/17/25 15:29
CRAMPING
meloxicam AdvReac upset Verified 01/17/25 15:29
stomach
potassium AdvReac GI problems Verified 01/17/25 15:29
tizanidine (From Zanaflex) AdvReac Sedation Verified 01/17/25 15:29
�Medication �Instructions �Recorded
nifedipine 60 mg tablet,extended 60 mg PO BID #60 tabs 05/05/22
release
pravastatin 40 mg tablet 40 mg PO HS High Cholesterol 11/15/22
baclofen 10 mg tablet 10 mg PO TIDPRN PRN spasms 01/17/25
trazodone 50 mg tablet 75 mg PO HS Mental Health/Anxiety 01/17/25
Review of Systems
Vital Signs
Temp Pulse Resp BP Pulse Ox
98.0 F 84 20 158/93 96
01/17/25 22:15 01/17/25 22:15 01/17/25 22:15 01/17/25 22:15 01/17/25 22:30
Physical Exam
Exam
General: Well Developed, Well Nourished, No Apparent Distress and Comfortable
HEENT: Normocephalic, Anicteric and Moist Mucous Membranes
Respiratory: Clear and Non Labored Respirations
Cardiac: S1/S2 and Regular Rhythm
GI: Soft, Non Distended and Tender (LLQ to deep palpation; just received pain medicine)
Skin: Warm and Dry
Neuro: AO x 3, Sedated (mildly from medication) and Nonfocal/Grossly Intact
Psych: Calm
Results
WBC 6.7 10^3/uL (4.8-10.8) 01/18/25 06:57
Hgb 12.2 g/dL (12.0-16.0) 01/18/25 06:57
Hct 37.5 % (37.0-47.0) 01/18/25 06:57
MCV 90.8 fL (81.0-99.0) 01/18/25 06:57
Plt Count 206 10^3/uL (130-400) 01/18/25 06:57
Absolute Neuts (auto) 8.0 10^3/uL (1.4-6.5) H 01/17/25 15:39
Sodium 139 mmol/L (135-145) 01/18/25 06:57
Potassium 4.3 mmol/L (3.5-5.1) 01/18/25 06:57
Chloride 107 mmol/L (98-107) 01/18/25 06:57
Carbon Dioxide 26 mmol/L (22-30) 01/18/25 06:57
BUN 22 mg/dl (7-17) H 01/18/25 06:57
Creatinine 1.1 mg/dL (0.6-1.0) H 01/18/25 06:57
Calcium 8.6 mg/dl (8.4-10.2) 01/18/25 06:57
Total Bilirubin 0.8 mg/dl (0.2-1.3) 01/17/25 15:39
AST 80 U/L (14-36) H 01/17/25 15:39
ALT 38 U/L (0-35) H 01/17/25 15:39
Alkaline Phosphatase 102 U/L (38-126) 01/17/25 15:39
Lipase 2231 U/L (23-300) H* 01/18/25 06:57
Diagnostic Image Results: CT
1. ACUTE INTERSTITIAL EDEMATOUS PANCREATITIS.
2. Moderate to severe chronic bilateral renal disease.
3. Moderate to severe intrahepatic biliary dilatation.
4. Previous cholecystectomy, appendectomy, and hysterectomy.
5. Severe diverticulosis in the sigmoid colon.
6. Severe multilevel lumbar and thoracic discogenic degenerative disease.
7. Bilateral total hip arthroplasties in place.
Prior GI Procedures: Prior cholecystectomy pt reports in her 20s
EGD: 03/11/23
- Normal esophagus.
- Erythematous mucosa in the stomach. Biopsied.
- Normal examined duodenum. Biopsied.
- Biopsies were taken with a cold forceps for
evaluation of eosinophilic esophagitis.
- A few gastric polyps. Biopsied.
A. Duodenum, biopsy:
? Duodenal mucosa with focal foveolar metaplasia.
? No increase in intraepithelial lymphocytes identified.
B. Stomach, biopsy:
? Gastric oxyntic mucosa with mild chronic inflammation.
? No curvilinear Helicobacter microorganisms identified, supported with negative
immunohistochemical stain for H. pylori*.
*This test has not been cleared or approved by the [place] Food and Drug Administration.
C. Stomach, polyp, biopsy:
? Gastric oxyntic mucosa with focal changes suggestive of fundic gland polyp.
D. Esophagus, distal, biopsy:
? Squamous mucosa with no significant pathologic findings.
? No intraepithelial eosinophils seen.
E. Esophagus, proximal, biopsy:
? Squamous mucosa with no significant pathologic findings.
? No intraepithelial eosinophils seen
Colonoscopy: 12/26/22
The examined portion of the ileum was normal.
- Diverticulosis in the sigmoid colon, in the
descending colon and in the transverse colon.
- Three 1 to 2 mm polyps in the descending colon, in
the transverse colon and in the cecum, removed with a
jumbo cold forceps. Resected and retrieved.
- One 5 mm polyp in the transverse colon, removed with
a cold snare. Resected and retrieved.
- Scar in the transverse colon and at the hepatic
flexure.
- Internal hemorrhoids.
- Anal papilla(e) were hypertrophied.
A. Colon, cecum, polypectomy:
? Tubular adenoma.
B. Colon, transverse, polypectomy:
? Tubular adenoma.
C. Colon, transverse, cold snare, polypectomy:
? Tubular adenoma.
D. Colon, descending, polypectomy:
? Colonic mucosa with focal lymphoid aggregate and surface epithelial hyperplasia
EKG
SINUS RHYTHM WITH PREMATURE SUPRAVENTRICULAR COMPLEXES
LEFT AXIS DEVIATION
MODERATE VOLTAGE CRITERIA FOR LVH, MAY BE NORMAL VARIANT ( R in aVL , [place]
product )
POSSIBLE ANTERIOR INFARCT (CITED ON OR BEFORE 07-Mar-2023)
ABNORMAL ECG
WHEN COMPARED WITH ECG OF 07-Mar-2023 12:42,
PREMATURE SUPRAVENTRICULAR COMPLEXES ARE NOW PRESENT
Assessment / Plan
-
74yoF PMH HTN, HLD, CKD, cholecystectomy 50 years ago, appendectomy, hysterectomy presenting with pancreatitis.
AFVSS. CBC WNL. Lipase >4000. No hx autoimmune dx. No alcohol use, recent travel, or change in medications. Pt has PRN balcofen for back pain that she describes as taking it over the last few days for worsening of her pain; planned for MRI at
[facility] next week for her back. Ct demonstrates pancreatitis and moderate to severe intrahepatic biliary dilation.
CT 2 years ago demonstrated subtle low-attenuation of head of pancreas recommended for MRI. Pt has scans dating back to 2008 demonstrating this mass as stable size with possible increased visibility due to fat infiltration. Unable to rule out this
mass as inciting factor currently.
#pancreatitis
- Can trial clear diet
- Continue pain regimen. Added toradol
- Continue IVF and supportive measures
- Check lipid panel
Pending attending recommendations
-
-
Thank you for consultation and allowing me to participate in the patient's care. Please call the integration specialist GI physician during the after hours with any questions or concerns.
[2025-01-18 11:01] LABS: HDL Cholesterol 60 mg/dl; LDL Cholesterol, Calculated 61 mg/dl; Very Low Density Lipoprotein 13 mg/dl (0-30)
--- NOTE | 2025-01-18 12:37 | W.PN.HOSP.TC ---
Today's Communication/Plan
-
IV fluids. MRCP
Assessment / Plan
Assessment / Plan
Physical exam:
General: Acutely ill
HEENT: Normocephalic, Atraumatic and Moist Mucous Membranes
Respiratory: Clear to Auscultation; Negative Wheezes, Rales or Rhonchi
Cardiac: Regular Rhythm and S1/S2
GI: Soft, tender and Nondistended
Musculoskeletal: No Clubbing, No Cyanosis and No Edema
Neuro: Awake, Alert and Oriented
Psych: Calm
A/P:
Acute pancreatitis:
Continue IV fluid
Continue n.p.o.
GI consult appreciated
Plan for possible MRCP
Check IgG4, triglycerides
Hypertension:
Continue home antihypertensive
Hyperlipidemia:
Continue statin
CAROLINE on CKD stage III:
On IV fluids
Avoid nephrotoxic
Monitor renal function
Depression anxiety:
Continue antidepressants
DVT prophylaxis:
Start heparin SQ
CODE STATUS:
Full code
Total time spent on today's encounter was 52 minutes which included time spent in counseling the patient/family regarding diagnosis and treatment plan as listed above, goals of care, and symptom management. Case was discussed with nursing staff,
specialists, and care coordinators/case management. All labs and imaging personally reviewed by me. Remainder the time spent in detailed review of previous records, lab data, imaging, and other medical provider documentation.
Anticipated Discharge: 24 - 48 hours
Subjective/Interval History
-
Date of Service: January 18, 2025
Objective Data
-
Labs:
Laboratory Results
01/18/25
06:57
WBC 6.7
Hgb 12.2
Hct 37.5
Plt Count 206
Sodium 139
Potassium 4.3
Chloride 107
Carbon Dioxide 26
BUN 22 H
Creatinine 1.1 H
Glucose 86
Calcium 8.6
Vital Signs:
Vital Signs
Temp Pulse Resp BP Pulse Ox
97.6 F 54 16 159/79 97
01/18/25 07:45 01/18/25 07:45 01/18/25 07:45 01/18/25 07:45 01/18/25 07:45
I&O
01/17/25 01/18/25 01/19/25
06:59 06:59 06:59
Output Total 150 / 150
Balance -150 / -150
[2025-01-18 15:45] VITALS: BP 149/76
[2025-01-18] MEDS: TORADOL 15 MG IV (15:57)
[2025-01-18] MEDS: HEPARIN 5000 UNITS SC ×2 (17:07→23:16)
--- NOTE | 2025-01-18 18:14 | CM ---
IA completed. IMM given on 01/17. Pt lives in [address] [place] [address] with her .PT has been independent in ADLs and IADLs. There are 3 steps at the entrance to the home and 14 steps inside the home.. Full BR on 2nd floor. Hx of HH- PT after knee
surgery. Hx of SNF at [facility]. No insecurities identified. Confirmed PCP, Rx, insurance and drug coverage.
PCP: Wilda Reynolds
RX: [facility] in [place]
Continues to have pain requiring IV pain med. Scheduled for MRI
Plan: Home with no needs. Will watch for discharge needs
[2025-01-18] MEDS: PRAVACHOL 40 MG PO (20:53)
[2025-01-18] MEDS: DESYREL 75 MG PO (20:53)
[2025-01-18 23:11] VITALS: BP 154/75
[2025-01-18] MEDS: MELATONIN 5 MG PO (23:44)
[2025-01-19] MEDS: LR 1000 IV ×2 (01:23→07:45)
[2025-01-19 06:36] LABS: Hematocrit 40.7 % (37.0-47.0); Hemoglobin 13.7 g/dL (12.0-16.0); Mean Corp Hgb Conc. 33.7 g/dL (33.0-37.0); Mean Corpuscular Volume 86.6 fL (81.0-99.0); Platelet Count 199 10^3/uL (130-400); Red Cell Dist. Width 12.3 % (11.5-14.5)
[2025-01-19 07:08] LABS: ALT (SGPT) 74 U/L (0-35); AST (SGOT) 49 U/L (14-36); Albumin 4.1 g/dl (3.5-5.0); Alkaline Phosphatase 117 U/L (38-126); Blood Urea Nitrogen 13 mg/dl (7-17); Calcium 9.5 mg/dl (8.4-10.2); Carbon Dioxide 29 mmol/L (22-30); Chloride 103 mmol/L (98-107); Estimated Creatinine Clearance 55 ml/min; Glucose 83 mg/dl (70-99); Lipase 199 U/L (23-300); Potassium 3.8 mmol/L (3.5-5.1); Sodium 136 mmol/L (135-145); Total Protein 6.8 g/dl (6.3-8.2); eGFR 58.75
[2025-01-19 07:31] VITALS: BP 144/77
[2025-01-19] MEDS: HEPARIN 5000 UNITS SC ×3 (07:42→23:08)
[2025-01-19] MEDS: PROCARDIA XL (EXTENDED RELEASE) 60 MG PO ×2 (07:42→20:45)
--- NOTE | 2025-01-19 08:39 | W.PN.GI.CBS2 ---
Addendum entered and electronically signed by Susan Florence MD 01/19/25 10:19:
I saw and evaluated the patient. I reviewed the resident�s note and agree with findings and plan as documented in the resident�s note.
Pt with marked improvement with resolution of abd pain
abd: soft, nontender
lipase normalized
impression:
pancreatitis
abnl imaging
plan:
start clears and will advance as tolerated
will hold off on MRI/MRCP would prefer a good outpatient study in light of question of pancreas head abnl
will d/w Dr. Pang to see if he prefers EUS and timing
Original Note:
Today's Communication / Plan
-
Pending attending recommendations
MRCP today
Assessment / Plan
-
74yoF PMH HTN, HLD, CKD, cholecystectomy 50 years ago, appendectomy, hysterectomy presenting with pancreatitis.
AFVSS. CBC WNL. Lipase >4000. No hx autoimmune dx. No alcohol use, recent travel, or change in medications. Pt has PRN balcofen for back pain that she describes as taking it over the last few days for worsening of her pain; planned for MRI at
[place] next week for her back. Ct demonstrates pancreatitis and moderate to severe intrahepatic biliary dilation.
CT 2 years ago demonstrated subtle low-attenuation of head of pancreas recommended for MRI. Pt has scans dating back to 2008 demonstrating this mass as stable size with possible increased visibility due to fat infiltration. Unable to rule out this
mass as inciting factor currently.
AFVSS. AST 49 ALT 74. Pt has resolution of symptoms, feeling better today without pain. Pending MRCP. Triglycerides 69 WNL, Total cholesterol 134, LDL 61, VLDL 13, HDL 60.
#pancreatitis
- Clear diet can be advanced
- Continue pain regimen. Added toradol
- Continue IVF and supportive measures
- Pending IgG4
- MRCP can be canceled due to resolution of symptoms
Subjective
Subjective
Date of Service: January 19, 2025
Pt reports no pain today. She denies nausea, vomiting. No BM since admission. She reports tolerating apple juice but has not consumed anything else.
Objective
Data Reviewed
Laboratory Data:
Laboratory Results
01/19/25 06:20
01/19/25 06:20
Laboratory Results
Total Bilirubin 0.9 mg/dl (0.2-1.3) 01/19/25 06:20
AST 49 U/L (14-36) H 01/19/25 06:20
ALT 74 U/L (0-35) H 01/19/25 06:20
Alkaline Phosphatase 117 U/L (38-126) 01/19/25 06:20
Lipase 199 U/L (23-300) 01/19/25 06:20
Vital Signs and I&O:
Vital Signs
Temp Pulse Resp BP Pulse Ox
97.9 F 65 18 144/77 95
01/19/25 07:31 01/19/25 07:31 01/19/25 07:31 01/19/25 07:31 01/19/25 07:31
I&O
01/18/25 01/19/25 01/20/25
06:59 06:59 06:59
Output Total 150 / 150
Balance -150 / -150
Physical Exam
Physical Exam
HEENT: Anicteric and Moist mucous membranes
Cardiology: Normal Sinus Rhythm
Pulmonary: Other (nonlabored breathing)
GI: Soft, Non Distended and Non Tender
Extremities: No Edema
Neuro: Non Focal
--- NOTE | 2025-01-19 11:55 | W.PN.HOSP.TC ---
Today's Communication/Plan
-
Advance diet
Assessment / Plan
Assessment / Plan
Physical exam:
General: Acutely ill
HEENT: Normocephalic, Atraumatic and Moist Mucous Membranes
Respiratory: Clear to Auscultation; Negative Wheezes, Rales or Rhonchi
Cardiac: Regular Rhythm and S1/S2
GI: Soft, tender and Nondistended
Musculoskeletal: No Clubbing, No Cyanosis and No Edema
Neuro: Awake, Alert and Oriented
Psych: Calm
A/P:
Acute pancreatitis:
Continue IV fluid but decrease rate
Start clear liquid diet and advance as tolerated
GI consult appreciated
Cancel MRCP since patient improving per GI recommendation
Checked IgG4, triglycerides
Hypertension:
Continue home antihypertensive
Hyperlipidemia:
Continue statin
CAROLINE on CKD stage III:
On IV fluids
Avoid nephrotoxic
Monitor renal function
Depression anxiety:
Continue antidepressants
DVT prophylaxis:
Start heparin SQ
CODE STATUS:
Full code
Total time spent on today's encounter was 35 minutes which included time spent in counseling the patient/family regarding diagnosis and treatment plan as listed above, goals of care, and symptom management. Case was discussed with nursing staff,
specialists, and care coordinators/case management. All labs and imaging personally reviewed by me. Remainder the time spent in detailed review of previous records, lab data, imaging, and other medical provider documentation.
Anticipated Discharge: Within 24 hours
Subjective/Interval History
-
Date of Service: January 19, 2025
Patient feels better today, no abdominal pain, less nausea, no vomiting. Afebrile
Objective Data
-
Labs:
Laboratory Results
01/19/25
06:20
WBC 6.9
Hgb 13.7
Hct 40.7
Plt Count 199
Sodium 136
Potassium 3.8
Chloride 103
Carbon Dioxide 29
BUN 13
Creatinine 1.0
Glucose 83
Calcium 9.5
Total Bilirubin 0.9
AST 49 H
ALT 74 H
Alkaline Phosphatase 117
Vital Signs:
Vital Signs
Temp Pulse Resp BP Pulse Ox
97.9 F 65 18 144/77 95
01/19/25 07:31 01/19/25 07:31 01/19/25 07:31 01/19/25 07:31 01/19/25 07:31
I&O
01/18/25 01/19/25 01/20/25
06:59 06:59 06:59
Output Total 150 / 150
Balance -150 / -150
[2025-01-19 15:37] VITALS: BP 154/76
--- NOTE | 2025-01-19 15:57 | CM ---
Continues to have pain requiring IV pain med and is on IVF
Plan: Home with no needs. Will watch for discharge needs
[2025-01-19] MEDS: TYLENOL 650 MG PO (20:38)
[2025-01-19] MEDS: PRAVACHOL 40 MG PO (20:46)
[2025-01-19] MEDS: MELATONIN 5 MG PO (21:50)
[2025-01-19] MEDS: DESYREL 75 MG PO (23:15)
[2025-01-19 23:22] VITALS: BP 145/72
[2025-01-20] MEDS: LR IV (02:27)
[2025-01-20 07:45] VITALS: BP 143/79
--- NOTE | 2025-01-20 08:23 | CM ---
Addendum entered by Vita Shafer 01/20/25 12:51:
Pt discharged to home with no needs. will transport her home.
Original Note:
Imm given and placed on chart. Possible DC
Plan: Home, no needs
[2025-01-20] MEDS: HEPARIN SC (09:24)
[2025-01-20] MEDS: PROCARDIA XL (EXTENDED RELEASE) 60 MG PO (09:26)
[2025-01-20] MEDS: TYLENOL 650 MG PO (09:26)
--- NOTE | 2025-01-20 10:42 | W.PN.GI.CBS2 ---
Addendum entered and electronically signed by Tonio Pang MD 01/20/25 12:53:
I saw and examined the patient.
The PA's note was reviewed and I agree with the note.
Comment:
74 year old female p/w idiopathic acute pancreatitis. Clinically improving. Imaging here showed ? subtle low-attenuating lesion in HOP, however this was followed up with MRI on 01/2023 which showed normal pancreas w/o mass lesions. Pt wants to
f/u with Dr. Orr as OP. HbA1c 5.7. Can consider OP EUS for further evaluation. Ok to d/c home, GI s/o.
Original Note:
Today's Communication / Plan
-
Pending attending recommendations
Assessment / Plan
-
74yoF PMH HTN, HLD, CKD, cholecystectomy 50 years ago, appendectomy, hysterectomy presenting with pancreatitis.
AFVSS. CBC WNL. Lipase >4000. No hx autoimmune dx. No alcohol use, recent travel, or change in medications. Pt has PRN balcofen for back pain that she describes as taking it over the last few days for worsening of her pain; planned for MRI at
[place] next week for her back. Ct demonstrates pancreatitis and moderate to severe intrahepatic biliary dilation.
CT 2 years ago demonstrated subtle low-attenuation of head of pancreas recommended for MRI. Pt has scans dating back to 2008 demonstrating this mass as stable size with possible increased visibility due to fat infiltration.
AFVSS. AST 49 ALT 74. Pt has resolution of symptoms, feeling better today without pain. Pending MRCP. Triglycerides 69 WNL, Total cholesterol 134, LDL 61, VLDL 13, HDL 60.
AFVSS. Pt tolerated diet yesterday and feels well with no complaints. Pancreatic mass seen on CT was followed up on MRI with outpt GI physician Dr. Orr demonstrating no mass on MRI in 2022. Resolved pancreatitis.
Subjective
Subjective
Date of Service: January 20, 2025
Pt feels well today, ready to go home. She reports tolerating a diet well yesterday without pain or nausea.
Objective
Data Reviewed
Laboratory Data:
Laboratory Results
01/19/25 06:20
01/19/25 06:20
Laboratory Results
Total Bilirubin 0.9 mg/dl (0.2-1.3) 01/19/25 06:20
AST 49 U/L (14-36) H 01/19/25 06:20
ALT 74 U/L (0-35) H 01/19/25 06:20
Alkaline Phosphatase 117 U/L (38-126) 01/19/25 06:20
Lipase 199 U/L (23-300) 01/19/25 06:20
Vital Signs and I&O:
Vital Signs
Temp Pulse Resp BP Pulse Ox
98.2 F 62 18 143/79 94
01/20/25 07:45 01/20/25 07:45 01/20/25 07:45 01/20/25 07:45 01/20/25 07:45
I&O
01/19/25 01/20/25 01/21/25
06:59 06:59 06:59
Intake Total 520 / 520
Balance 520 / 520
Physical Exam
Physical Exam
HEENT: Anicteric and Moist mucous membranes
Cardiology: Normal Sinus Rhythm
Pulmonary: Clear
GI: Soft, Non Distended and Non Tender
Extremities: No Edema
Neuro: Non Focal
--- NOTE | 2025-01-20 11:53 | W.PN.HOSP.TC ---
Addendum entered and electronically signed by Robert Miller MD 01/20/25 14:06:
CAROLINE was present and is a clinical diagnosis based on increase in serum creatinine by > or = to 0.3 mg/dL within 48 hours. Creatinine was 1.4 on 01/17 and after hydration creatinine went down to her normal Creatinine 1.0 today 01/19. Creatinine
baseline 1.0 back in 11/2022.
Original Note:
Today's Communication/Plan
-
Discharge planning today
Assessment / Plan
Assessment / Plan
Physical exam:
General: No acute distress
HEENT: Normocephalic, Atraumatic and Moist Mucous Membranes
Respiratory: Clear to Auscultation; Negative Wheezes, Rales or Rhonchi
Cardiac: Regular Rhythm and S1/S2
GI: Soft, non tender and Nondistended
Musculoskeletal: No Clubbing, No Cyanosis and No Edema
Neuro: Awake, Alert and Oriented
Psych: Calm
A/P:
Acute pancreatitis:
Stop IV fluids
Tolerated advancing diet
GI consult appreciated
Cancel MRCP since patient improving per GI recommendation
Checked IgG4, triglycerides
Discussed with GI and cleared for discharge today
Hypertension:
Continue home antihypertensive
Hyperlipidemia:
Continue statin
CAROLINE on CKD stage III:
On IV fluids
Avoid nephrotoxic
Monitor renal function
Depression anxiety:
Continue antidepressants
DVT prophylaxis:
Start heparin SQ
CODE STATUS:
Full code
Anticipated Discharge: Today
Subjective/Interval History
-
Date of Service: January 20, 2025
Patient feels well. No new complaints
Objective Data
-
Vital Signs:
Vital Signs
Temp Pulse Resp BP Pulse Ox
98.2 F 62 18 143/79 94
01/20/25 07:45 01/20/25 07:45 01/20/25 07:45 01/20/25 07:45 01/20/25 07:45
I&O
01/19/25 01/20/25 01/21/25
06:59 06:59 06:59
Intake Total 520 / 520
Balance 520 / 520
--- NOTE | 2025-01-20 11:59 | W.DCSUMMARY ---
Discharge Summary
Discharge Data
Date of Admission: 01/17/25
Date of Discharge: 01/20/25
Total time spent discharging patient (in min): 35
-
Pending Results: No
Hospital Course
Patient 74 years old female with history of hypertension, CKD, came into the hospital with acute pancreatitis. She was kept n.p.o. and IV fluids and her pancreatitis improved. GI consulted and followed her through this hospital stay. She also had
evidence of hypodensity at the level of the head of the pancreas by previous CT scan of the abdomen and GI discussed to do an MRI as outpatient since patient is improving and claustrophobic. Patient pancreatic enzymes came back down to normal. Her
pain subsided completely. She is also tolerating regular diet without any problems. She is ambulating without difficulties. Patient also had evidence of CAROLINE that resolved with IV fluid. She will be discharged in stable condition today.
Discharge duration: 35 minutes
Discharge Plan
-
Patient Disposition: Home (Routine Discharge)
Discharge Diagnosis/Procedures: Acute pancreatitis. Acute kidney injury. Pancreatic head low-attenuation lesion.
Diet: Low Fat
Activity: As tolerated
Blood Work: Please PCP to order CBC, CMP within 1 week
Referrals:
Wilda Reynolds MD [Family Provider, Family Practice] - in less than 1 week
Denny Orr MD [Active, Gastroenterology] - in two to four weeks
Prescriptions:
Continued
nifedipine 60 mg Tablet Extended Release
60 mg PO BID Qty: 60 0RF
pravastatin 40 mg Tablet
40 mg PO HS
trazodone 50 mg tablet
75 mg PO HS
baclofen 10 mg tablet
10 mg PO TIDPRN PRN (Reason: spasms)
Discharge Orders:
Discharge Patient (As Directed); Ordered 01/20/25
Ordered By: Robert Miller
Discharge Date and Time
Discharge Date/Time: 01/20/25 13:48
Print Language: TAIWANESE
[2025-01-20 12:51] VITALS: BP 133/57
--- NOTE | 2025-01-20 13:24 | PN.CDI ---
CDI
- -
CDI:
Physician Documentation Request
Admit Date: 01/17/25 21:08
Dear Doctor Paul,
Progress notes include a diagnosis of CAROLINE on CKD stage III
Creatinine results:
Laboratory Tests
01/17/25 01/18/25 01/19/25
15:39 06:57 06:20
Creatinine 1.4 H 1.1 H 1.0
Criteria for CAROLINE*
1 Increase in serum creatinine by > or = to 0.3 mg/dL (> or = to 26.5 micromol/L) within 48 hours, OR
2 Increase in serum creatinine to > or = to 1.5 times baseline, which is known or presumed to have occurred within 7 days, OR
3 Urine volume < 0.5 nL/kg/hour for six hours
Based on the above information and the recognized standard for CAROLINE could you please verify this diagnoses is still accurate and reflective of the patient�s condition to ensure quality of the medical record.
Please clarify in the Progress Notes:
�CAROLINE is/was present and is a clinical diagnosis based on (please include this additional support in the medical record)
�After study CAROLINE has been ruled out
�Other
Use of terms such as suspected, likely, concern for, or probable (associated with a specific diagnosis that is being evaluated, monitored, or treated as if it exists) are acceptable and can be coded in the inpatient setting, when documented at the
time of discharge.
Thank you,
Hattie Jones RN, BSN
CDI Specialist
tiger text
Please use your independent medical judgment in providing your response.
== END 2025-01-20 13:48 | disposition home or self-care (01) | DRG 439 ==
LOC: 4 EAST ACU 21:08
PROVIDERS: Emergency Medicine; Nurse Practitioner Family; ADMITTING PHYSICIAN Hospitalist; ATTENDING PHYSICIAN Hospitalist; CONSULT PHYSICIAN Internal Medicine; EMERGENCY PHYSICIAN Emergency Medicine; FAMILY PHYSICIAN Family Medicine
DX: K85.80 Other acute pancreatitis without necrosis or infection (principal); N17.9 Acute kidney failure, unspecified; N18.32 Chronic kidney disease, stage 3b; I12.9 Hypertensive chronic kidney disease with stage 1 through stage 4 chronic kidney disease, or unspecified chronic kidney disease; F40.240 Claustrophobia; F32.A Depression, unspecified; E66.09 Other obesity due to excess calories; Z68.36 Body mass index [BMI] 36.0-36.9, adult; Z90.49 Acquired absence of other specified parts of digestive tract; E78.00 Pure hypercholesterolemia, unspecified; I89.0 Lymphedema, not elsewhere classified; E21.3 Hyperparathyroidism, unspecified; Z96.651 Presence of right artificial knee joint; Z87.891 Personal history of nicotine dependence; Z88.5 Allergy status to narcotic agent; K31.7 Polyp of stomach and duodenum; Z79.899 Other long term (current) drug therapy; Z90.710 Acquired absence of both cervix and uterus; Z96.643 Presence of artificial hip joint, bilateral
CPT/HCPCS: 74176; 80048; 80053; 80061; 82787; 83690; 84484; 85025; 85027; 87070; 93005; 96361; 96374; 96375; 96376; 99285

== ENCOUNTER → 2025-02-01 10:23 | Outpatient (REF) | payer MEDICARE, OTHER, SELFPAY | LOC: RCS 10:23 | PROVIDERS: ATTENDING PHYSICIAN Internal Medicine Cardiovascular Disease; FAMILY PHYSICIAN Family Medicine | DX: I10 Essential (primary) hypertension (principal); R61 Generalized hyperhidrosis; R94.31 Abnormal electrocardiogram [ECG] [EKG]; R10.32 Left lower quadrant pain | CPT/HCPCS: 74177; 93306; Q9967 ==

== ENCOUNTER 2025-02-11 11:41 | Inpatient (IN) | payer MEDICARE, OTHER, SELFPAY ==
[2025-02-10] VITALS (10 sets, daily range): BP systolic 120–175; BP diastolic 53–93; BMI 35.7
[2025-02-10] MEDS: DILAUDID 0.5 MG IV ×2 (09:46→11:25)
[2025-02-10] MEDS: NSS 1000 IV (09:46)
[2025-02-10 09:55] LABS: Hematocrit 43.6 % (37.0-47.0); Hemoglobin 14.8 g/dL (12.0-16.0); Mean Corp Hgb Conc. 33.9 g/dL (33.0-37.0); Mean Corpuscular Volume 88.3 fL (81.0-99.0); Nucleated Red Blood Cells % 0 %; Platelet Count 261 10^3/uL (130-400); Red Cell Dist. Width 12.9 % (11.5-14.5)
--- NOTE | 2025-02-10 10:03 | ED.GENMED ---
History of Present Illness
<Opal Soria [employer] - Last Filed: 02/10/25 17:27>
General
Chief Complaint: Abdominal Pain
Source: patient and spouse
Exam Limitations: none
Time Seen by Provider: 02/10/25 09:24
Nursing documentation reviewed up to this point in time: agreed with
History of Present Illness
History of Present Illness:
74-year-old female with a past medical history significant for admitted here 01/17-01/20 pancreatitis, who presents with abdominal pain. The pain began two weeks ago when she was admitted to the hospital for pancreatitis and discharged after three
days. Her pain mid to left abdomen now has worsened since yesterday evening after eating turkey dinner, with the current intensity rated at 10/10, Zofran given by EMS. The patient is experiencing nausea but no vomiting, and she denies alcohol use.
She lives with her , denies smoking, and had a bowel movement yesterday which was 'mushy.'
She has an upcoming appointment with her family doctor in 3 days. Denies CP, SOB. Denies fever/chills. States she was up all night urinating frequently.
Past History
<Opal Soria, [employer] - Last Filed: 02/10/25 17:27>
Past History
ED Past Medical History: HTN, Hypercholesterolemia and Psychiatric
ED Past Surgical History: Appendectomy, Cholecystectomy, , Gynecological (Total hysterectomy) and Orthopedic
Social History
Tobacco: Former smoker
Alcohol: None
Drug: None
Personal:
Living: with family
Employment: Employed
Family History
Family History: Other (Noncontributory)
Review of Systems
<Opal Soria, [employer] - Last Filed: 02/10/25 17:27>
Review of Systems
Allergies reviewed?: Yes
All Other Systems: ROS reviewed and negative except as documented in HPI and ROS
Phy Exam
<Opal Soria, [employer] - Last Filed: 02/10/25 17:27>
Physical Exam
Physical Exam:
GENERAL: No acute distress. A&Ox3.
CONSTITUTIONAL: Afebrile.
EYES: clear, conjunctivae normal
ENMT: moist mucus membranes, Pharynx nl
RESPIRATORY: Regular respirations, nonlabored, lungs clear.
CARDIOVASCULAR: Regular rate and rhythm, no murmurs, no rubs.
GI: Soft, tender mid to left abdomen, normal BS
MUSCULOSKELETAL: Moves with ease. Well perfused.
SKIN: Warm, dry, pink
PSYCH: Depressed mood and affect. Well kept, interactive and appropriate
NEUROLOGIC: Awake, alert and oriented. No focal neurological deficits
Course
<Opal Soria, [employer] - Last Filed: 02/10/25 17:27>
Orders/Labs/Results
Orders:
Orders
02/10/25 09:32
Electrocardiogram (*1) Urgent
Reason for Study: Chest Pain
EKG- Treatment ONCE
IV Insert/Care/Rem.- Treatment PRN
02/10/25 09:34
0.9% Sodium Chloride 1000 ml [Nss] 1,000 ml IV BOLUS
HYDROmorphone [Dilaudid] 0.5 mg IV NOW STA
02/10/25 09:39
Complete Blood Count/With Diff Urgent
Comprehensive Metabolic Panel Urgent
Lipase Urgent
Troponin I Urgent
02/10/25 10:16
CT Abd/Pel (IV only)-DH only Urgent
Comment:
Reason For Exam: L abd pain suddenly worse, leukocytosis
02/10/25 11:15
HYDROmorphone [Dilaudid] 0.5 mg IV NOW STA
02/10/25 12:46
Morphine Sulfate 4 mg IV NOW STA
02/10/25 13:04
Urinalysis Reflex To Culture Urgent
Date Specimen was Collected: 02/10/25
Time Specimen was Collected: 12:50
Urine Microscopic Reflex Cult Urgent
Urine Culture Urgent
JOANNA Source: U
Specimen Description:
Date Specimen was Collected: 02/10/25
Time Specimen was Collected: 12:50
02/10/25 13:32
Admit/Transfer Patient As Directed
Co-Sign Provider:
Level of Care: Observation services
Assign to:: Medical/Surgical
Physician / Group: catherine
Diagnosis: abdominal pain
Code Status As Directed
Resuscitation Status: Full Code
PRN Pain Medication Management As Directed
May give lesser potent ordered pain med per pt: Yes
preference::
Protocol:: Medication orders for pain may be administered in a
manner that supports deferring to patient preference
when the pt is:
- Requesting an ordered lesser potent pain medication.
Least to most potent pain medications are defined
as: acetaminophen < NSAID < tramadol < opioids
(morphine, oxycodone, hydromorphone).
- Requesting a lesser dose of the same medication IF
ORDERED.
- Requesting a less intrusive route of administration
if both routes are prescribed by the provider (PO <
IV).
02/10/25 14:00
Flush (0.9% Sodium Chloride) [Flush (Nss)] See Dose Instructions IV PER PROTOCOL
02/10/25 Dinner
Clear Liquid
At Your Request: Limited, Respite Worker Required
02/10/25 15:14
Acetaminophen [Tylenol] 1,000 mg PO Q6HPRN PRN mild pain
Baclofen [Lioresal] 10 mg PO TIDPRN PRN spasms
HYDROmorphone [Dilaudid] 0.5 mg IV Q4HPRN PRN
Ondansetron Injectable [Zofran] 4 mg IV Q6HPRN PRN
Polyethylene Glycol Powder [Miralax] 17 grams PO DAILYPRN PRN constipation
02/10/25 15:14
Activity As Directed
Activity Level: As Tolerated
Vital Signs As Directed
Frequency: Per unit guidelines
DX Deep Vein Thrombosis Video Routine
02/10/25 20:00
0.9% Sodium Chloride [Nss (Preservative Free)] 10 ml IV BID
Heparin 5,000 units SC Q12
NIFEdipine EXTENDED RELEASE [Procardia Xl (Extended Release)] 60 mg PO BID
Pantoprazole [Protonix IV] 40 mg IV BID
02/10/25 22:00
Pravastatin Sodium [Pravachol] 40 mg PO HS
Trazodone [Desyrel] 75 mg PO HS
02/11/25 06:00
Complete Blood Count/With Diff IN AM
Comprehensive Metabolic Panel IN AM
Abnormal Lab Results
02/10/25 02/10/25
09:39 13:04
WBC 15.3 H 10^3/uL
(4.8-10.8)
Abs Immat Gran (auto) 0.1 H 10^3/uL
(0-0.05)
Absolute Neuts (auto) 13.9 H 10^3/uL
(1.4-6.5)
Absolute Lymphs (auto) 0.3 L 10^3/uL
(1.2-3.4)
Absolute Monos (auto) 0.8 H 10^3/uL
(0.1-0.6)
Neutrophils % 90.9 H %
(42.2-75.2)
Lymphocytes % 2.0 L %
(20.5-51.1)
BUN 23 H mg/dl
(7-17)
Creatinine 1.3 H mg/dL
(0.6-1.0)
Glucose 126 H mg/dl
(70-99)
Ur Occult Blood Reflex 1+ A
(Negative)
Leukocyte Esterase Rfl 2+ A
(Negative)
Urine WBC (Reflex) 11-15 A /HPF
(0-5)
Urine Bacteria (Reflex) Moderate A
(Negative)
Urine Albumin (Reflex) 1+ A
(Neg - Trace)
02/10/25 09:39
02/10/25 09:39
Vital Signs
Initial and Last Documented VS:
Initial Vital Signs
Temp Pulse Resp BP Pulse Ox
99.5 F 89 16 152/78 95
02/10/25 09:01 02/10/25 09:01 02/10/25 09:01 02/10/25 09:01 02/10/25 09:01
Last Documented Vital Signs
Temp Pulse Resp BP Pulse Ox
103.1 F H 97 20 175/93 91
02/10/25 15:17 02/10/25 15:17 02/10/25 15:17 02/10/25 15:17 02/10/25 15:48
Outsole Molder consulted with Physician
Outsole Molder consulted with physician?: Yes
Name of Physician Consulted: Moises
<Christiano De Leon MD - Last Filed: 02/10/25 13:23>
Orders/Labs/Results
Orders:
Orders
02/10/25 09:32
Electrocardiogram (*1) Urgent
Reason for Study: Chest Pain
EKG- Treatment ONCE
IV Insert/Care/Rem.- Treatment PRN
02/10/25 09:34
0.9% Sodium Chloride 1000 ml [Nss] 1,000 ml IV BOLUS
HYDROmorphone [Dilaudid] 0.5 mg IV NOW STA
02/10/25 09:39
Complete Blood Count/With Diff Urgent
Comprehensive Metabolic Panel Urgent
Lipase Urgent
Troponin I Urgent
02/10/25 10:16
CT Abd/Pel (IV only)-DH only Urgent
Comment:
Reason For Exam: L abd pain suddenly worse, leukocytosis
02/10/25 11:15
HYDROmorphone [Dilaudid] 0.5 mg IV NOW STA
02/10/25 12:46
Morphine Sulfate 4 mg IV NOW STA
02/10/25 13:04
Urinalysis Reflex To Culture Urgent
Date Specimen was Collected: 02/10/25
Time Specimen was Collected: 12:50
Urine Microscopic Reflex Cult Urgent
Urine Culture Urgent
JOANNA Source: U
Specimen Description:
Date Specimen was Collected: 02/10/25
Time Specimen was Collected: 12:50
02/10/25 13:32
Admit/Transfer Patient As Directed
Co-Sign Provider:
Level of Care: Observation services
Assign to:: Medical/Surgical
Physician / Group: catherine
Diagnosis: abdominal pain
Code Status As Directed
Resuscitation Status: Full Code
PRN Pain Medication Management As Directed
May give lesser potent ordered pain med per pt: Yes
preference::
Protocol:: Medication orders for pain may be administered in a
manner that supports deferring to patient preference
when the pt is:
- Requesting an ordered lesser potent pain medication.
Least to most potent pain medications are defined
as: acetaminophen < NSAID < tramadol < opioids
(morphine, oxycodone, hydromorphone).
- Requesting a lesser dose of the same medication IF
ORDERED.
- Requesting a less intrusive route of administration
if both routes are prescribed by the provider (PO <
IV).
02/10/25 14:00
Flush (0.9% Sodium Chloride) [Flush (Nss)] See Dose Instructions IV PER PROTOCOL
02/10/25 Dinner
Clear Liquid
At Your Request: Limited, Respite Worker Required
02/10/25 15:14
Acetaminophen [Tylenol] 1,000 mg PO Q6HPRN PRN mild pain
Baclofen [Lioresal] 10 mg PO TIDPRN PRN spasms
HYDROmorphone [Dilaudid] 0.5 mg IV Q4HPRN PRN
Ondansetron Injectable [Zofran] 4 mg IV Q6HPRN PRN
Polyethylene Glycol Powder [Miralax] 17 grams PO DAILYPRN PRN constipation
02/10/25 15:14
Activity As Directed
Activity Level: As Tolerated
Vital Signs As Directed
Frequency: Per unit guidelines
DX Deep Vein Thrombosis Video Routine
02/10/25 20:00
0.9% Sodium Chloride [Nss (Preservative Free)] 10 ml IV BID
Heparin 5,000 units SC Q12
NIFEdipine EXTENDED RELEASE [Procardia Xl (Extended Release)] 60 mg PO BID
Pantoprazole [Protonix IV] 40 mg IV BID
02/10/25 22:00
Pravastatin Sodium [Pravachol] 40 mg PO HS
Trazodone [Desyrel] 75 mg PO HS
02/11/25 06:00
Complete Blood Count/With Diff IN AM
Comprehensive Metabolic Panel IN AM
Abnormal Lab Results
02/10/25 02/10/25
09:39 13:04
WBC 15.3 H 10^3/uL
(4.8-10.8)
Abs Immat Gran (auto) 0.1 H 10^3/uL
(0-0.05)
Absolute Neuts (auto) 13.9 H 10^3/uL
(1.4-6.5)
Absolute Lymphs (auto) 0.3 L 10^3/uL
(1.2-3.4)
Absolute Monos (auto) 0.8 H 10^3/uL
(0.1-0.6)
Neutrophils % 90.9 H %
(42.2-75.2)
Lymphocytes % 2.0 L %
(20.5-51.1)
BUN 23 H mg/dl
(7-17)
Creatinine 1.3 H mg/dL
(0.6-1.0)
Glucose 126 H mg/dl
(70-99)
Ur Occult Blood Reflex 1+ A
(Negative)
Leukocyte Esterase Rfl 2+ A
(Negative)
Urine WBC (Reflex) 11-15 A /HPF
(0-5)
Urine Bacteria (Reflex) Moderate A
(Negative)
Urine Albumin (Reflex) 1+ A
(Neg - Trace)
02/10/25 09:39
02/10/25 09:39
Vital Signs
Initial and Last Documented VS:
Initial Vital Signs
Temp Pulse Resp BP Pulse Ox
99.5 F 89 16 152/78 95
02/10/25 09:01 02/10/25 09:01 02/10/25 09:01 02/10/25 09:01 02/10/25 09:01
Last Documented Vital Signs
Temp Pulse Resp BP Pulse Ox
103.1 F H 97 20 175/93 91
02/10/25 15:17 02/10/25 15:17 02/10/25 15:17 02/10/25 15:17 02/10/25 15:48
<Opal Soria, [employer] - Last Filed: 02/10/25 17:27>
MDM/Problems Addressed
Differential Diagnosis Includes:
Pancreatitis, biliary colic, diverticulitis, colitis
MDM/Problems Addressed:
74-year-old female with a past medical history significant for admitted here 01/17-01/20 pancreatitis, who presents with abdominal pain. The pain began two weeks ago when she was admitted to the hospital for pancreatitis and discharged after three
days. Her pain now mid to left abdomen, has worsened since yesterday evening after eating turkey dinner, with the current intensity rated at 10/10, Zofran given by EMS. The patient is experiencing nausea but no vomiting, and she denies alcohol use.
She lives with her , denies smoking, and had a bowel movement yesterday which was 'mushy.'
She has an upcoming appointment with her family doctor in 3 days. Denies CP, SOB. Denies fever/chills. States she was up all night urinating frequently.
Out patient follow up abd CT scan on 02/01 reviewed: significant decrease in changes of acute pancreatitis from 01/20 scan.
10:15 a.m.
CBC WBC 15.3 w left shift
CMP: BUN/creat 23/1.3 otherwise normal
Lipase normal
11:15 AM:
Patient states pain is still 9/10. Second dose of Dilaudid ordered
She has been to CAT scan and I am waiting the official reading.
11:50 AM: CAT scan report radiology report read: IMPRESSION:
Colonic diverticulosis, most prominent sigmoid, without gross accompanying inflammatory changes. No intestinal obstruction or free air.
Recent history of acute pancreatitis with minimal ill-defined hypodensity seen in the pancreatic head in comparison to recent prior CT, cannot exclude some residual minor/recurrent changes of acute pancreatitis or pseudocyst.Symmetric renal
excretion. Small bilateral simple renal cysts as well as additional subcentimeter low-attenuation renal lesions too small to characterize.
Prior cholecystectomy, appendectomy and hysterectomy.
Soft tissues of the true pelvis including the urinary bladder significantly obscured by beam hardening artifact from bilateral hip arthroplasties.
Patient states no relief after second dose of Dilaudid.
Unsure etiology of her pain.
Case discussed with Dr. De Leon
12:45 PM:
Plan: Admit for intractable abdominal pain.
Hospitalist notified of admission
Bishnult;Opal Soria NP - Last Filed: 02/10/25 17:27>
*Pulse Oximetry
SaO2: 95
Oxygen Mode of Delivery: Room air
Patient hypoxic: no
*Critical Care Note
Total Time (30-74mins, 75-104mins- exclusive of procedures): Not Applicable
ED Attending Note
<Opal Soria NP - Last Filed: 02/10/25 17:27>
-
Portions of this chart may have been created with voice recognition software.� Occasional wrong word or��sound alike� substitutions may have occurred due to the inherent limitations of voice recognition software.
<Christiano De Leon MD - Last Filed: 02/10/25 13:23>
ED Attending Note
Patient seen and examined by attending physician: Yes
I performed the substantive portion of visit, reviewed & personally made and approve the management plan that is documented in note by myself or PEGGY.: Yes
ED Attending Note:
74-year-old male complaining of abdominal pain mostly epigastric started last evening. Progressed throughout the night. Associated with nausea. History of similar episodes in the past. Diagnosed with pancreatitis. On exam patient is nontoxic
but mildly uncomfortable appearing. No rebound or guarding no mass or hernia. Lungs are clear and equal. Regular rate and rhythm. Warm and dry. Perfusing well. Grossly nonfocal.
Labs show a leukocytosis. Lipase is normal. CT is unremarkable. Previous records reviewed.
At this time abdominal pain unknown etiology. Previously had pancreatitis however nothing to support that currently. She has had some weight loss. Would be possibly suspicious of other underlying pancreatic issue. Possible gastric issue.
Warrants inpatient management
Discharge Plan
Departure
Patient Disposition: Admit
Date of Disposition: 02/10/25
Time of Disposition: 12:47
Admit to: Med/Surg
Presentation/result/management discussed w/ accepting MD/DO: Hospitalist
Condition: Fair
Discharge Problem:
Intractable abdominal pain
Interventions
Interventions:
*General Assessment Last Done: 02/10/25 09:37
*Neglect/Abuse Screening Last Done: 02/10/25 09:38
*ED- Fall Risk Assessment Last Done: 02/10/25 09:37
*ED Influenza Vaccine History Last Done: 02/10/25 09:37
*Nursing Disposition Last Done: 02/10/25 15:08
JC-Yshuui-Svjwmgxdap Assessment Last Done: 02/10/25 09:45
Discharge Date and Time
Discharge Date/Time: 02/10/25 15:09
--- NOTE | 2025-02-10 10:08 | EDRN ---
Pt had low POX in upper 80's so placed on O2 at 2lpm via NC at this time.
[2025-02-10 10:09] LABS: ALT (SGPT) 15 U/L (0-35); AST (SGOT) 18 U/L (14-36); Albumin 4.7 g/dl (3.5-5.0); Alkaline Phosphatase 98 U/L (38-126); Blood Urea Nitrogen 23 mg/dl (7-17); Calcium 9.8 mg/dl (8.4-10.2); Carbon Dioxide 25 mmol/L (22-30); Chloride 105 mmol/L (98-107); Estimated Creatinine Clearance 41 ml/min; Glucose 126 mg/dl (70-99); Lipase 85 U/L (23-300); Potassium 4.1 mmol/L (3.5-5.1); Sodium 139 mmol/L (135-145); Total Protein 7.7 g/dl (6.3-8.2); eGFR 42.88
[2025-02-10 10:19] LABS: Troponin I < 0.012 ng/ml
--- NOTE | 2025-02-10 12:49 | EDRN ---
Dr. De Leon in room w/pt and daughter and spouse.
[2025-02-10] MEDS: MORPHINE SULFATE 4 MG IV (12:53)
--- NOTE | 2025-02-10 13:25 | EDRN ---
Dr. Yates in room w/pt at this time.
--- NOTE | 2025-02-10 13:35 | HPS.HSE ---
Addendum entered and electronically signed by Duncan Moon MD 02/10/25 16:29:
Patient developed fever 103.1 later. Urinalysis shows 11-15 WBC, moderate bacteria, plus leukocyte esterase, +1 blood. check blood cultures. Check COVID and influenza. Will empirically start ceftriaxone for urinary tract infection although not
strongly convincing.
Addendum entered and electronically signed by Duncan Moon MD 02/10/25 13:40:
Surgical history-
appendectomy
cholecystectomy
hysterectomy
Jonathan - subtotal parathyroidectomy 08/04/23
Right total knee replacement 03/2024
Original Note:
Family Physician
-
Family Physician: Wilda Reynolds
Chief Complaint
-
abdominal pain
History of Present Illness
74-year-old female past medical history of pancreatitis, hypertension, hyperlipidemia, CKD 3, anxiety/depression, presenting with severe epigastric abdominal pain. Abdominal pain started yesterday. She describes pain as burning that radiates to
her back as well as the upper part of her chest. She has chronic burping. Denies any difficulty swallowing or painful swallowing.
She was recently admitted 2 weeks ago for acute pancreatitis. She was hospitalized for 3 days and pain had resolved by the time of discharge. Since discharge she has not been eating very well she is scared of having worsening abdominal pain. She
has been having unformed stools. Denies blood in the stool. She has been having chills but denies fever. Sometimes has been feeling nauseous and spitting up some phlegm although no vomiting.
She has been having urinary frequency for past 2 weeks without burning with urination or blood in the urine.
She does not smoke or drink alcohol. She denies drugs.
Medical History
Past Medical History
Past Medical History: Reports Other (pancreatitis, hypertension, hyperlipidemia, CKD 3, anxiety/depression)
Past Surgical History: Reports None
Social History
Tobacco: Non-smoker
Alcohol: None
Drug: None
Family History
Family History: Not pertinent
Allergies / Home Medications
Allergies reflects when Allergies were last updated in [facility].
Home Medications with original date entered in [facility]
Allergy/Medication List:
Allergies
Allergy/AdvReac Type Severity Reaction Status Date / Time
cortisone Allergy flushing, Verified 02/10/25 09:04
elevated BP
house dust Allergy sneezing, Verified 02/10/25 09:04
sinus
problems
morphine Allergy Nausea / Verified 02/10/25 09:04
Vomiting
pollen extracts Allergy sneezing, Verified 02/10/25 09:04
sinus
problems
tramadol Allergy Sedation Verified 02/10/25 09:04
'too
strong'
DEVON Inhibitors AdvReac Upset Verified 02/10/25 09:04
stomach
amoxicillin AdvReac upset Verified 02/10/25 09:04
stomach
bacitracin AdvReac upset Verified 02/10/25 09:04
stomach
dextrose AdvReac stomach Verified 02/10/25 09:04
cramps
erythromycin base AdvReac STOMACH Verified 02/10/25 09:04
(Erythromycin Base) CRAMPING
eszopiclone (From Lunesta) AdvReac headache Verified 02/10/25 09:04
and drowsy
levofloxacin (From Levaquin) AdvReac STOMACH Verified 02/10/25 09:04
CRAMPING
meloxicam AdvReac upset Verified 02/10/25 09:04
stomach
potassium AdvReac GI problems Verified 02/10/25 09:04
tizanidine (From Zanaflex) AdvReac Sedation Verified 02/10/25 09:04
Home Medications
pravastatin 40 mg tablet 40 mg PO HS High Cholesterol 11/15/22
baclofen 10 mg tablet 10 mg PO TIDPRN PRN spasms 01/17/25
trazodone 50 mg tablet 75 mg PO HS Mental Health/Anxiety 01/17/25
acetaminophen 500 mg tablet (Tylenol Extra Strength) 1,000 mg PO Q6HPRN PRN mild pain 02/10/25
nifedipine 60 mg tablet,extended release 60 mg PO BID Heart Disease/Condition 02/10/25
polyethylene glycol 3350 17 gram oral powder packet (Miralax) 17 g PO DAILYPRN PRN constipation 02/10/25
Review of Systems
-
History Source: Patient
A 12 point ROS was completed and negative except as noted: Yes
Constitutional: Reports No Symptoms
EENT: Reports No Symptoms
Respiratory: Reports No Symptoms
Cardiac: Reports No Symptoms
Abdomen/GI: Reports See HPI
: Reports No Symptoms
Musculoskeletal: Reports No Symptoms
Skin: Reports No Symptoms
Neurological: Reports No Symptoms
Endocrine: Reports No Symptoms
Hematologic/Lymphatic: Reports No Symptoms
Psych: Reports No Symptoms
Physical Exam
Vital Signs
Vital Signs
Temp Pulse Resp BP Pulse Ox
99.5 F 67 20 127/53 97
02/10/25 09:01 02/10/25 13:15 02/10/25 13:15 02/10/25 13:00 02/10/25 13:15
Physical Exam
General: Well Developed, Well Nourished and No Apparent Distress
HEENT: NormoCephalic, Moist mucous membranes and Atraumatic
Respiratory: Clear
Cardiac: S1/S2 and Regular Rhythm; No Murmur or Rub
GI: Soft, Non Distended, Normal Bowel Sounds and Tender (epigastric ); No Organomegaly
Rectal: Deferred by Provider
Musculoskeletal: No Clubbing, No Cyanosis and No Edema
Skin: No Rash
Neuro: Nonfocal/grossly intact
Laboratory Results
-
02/10/25 09:39
02/10/25 09:39
Laboratory Results
Total Bilirubin 0.7 mg/dl (0.2-1.3) 02/10/25 09:39
AST 18 U/L (14-36) 02/10/25 09:39
ALT 15 U/L (0-35) 02/10/25 09:39
Alkaline Phosphatase 98 U/L (38-126) 02/10/25 09:39
Troponin I < 0.012 ng/ml 02/10/25 09:39
Lipase 85 U/L (23-300) 02/10/25 09:39
Data Reviewed
-
Lab Data: Labs Reviewed by me
Old Records: Reviewed
Impression/Plan
-
IMPRESSION:
PLAN:
# Severe abdominal pain after recent episode of acute pancreatitis possibly secondary to GERD/acute gastritis
# Recent episode of acute pancreatitis
- CT abdomen pelvis shows colonic diverticulosis without inflammatory changes, ill-defined hypodensity in the pancreatic head and nonocclusive residual minor/recurrent changes of acute pancreatitis or developing tiny pseudocyst
- Lipase 85
-Given IV fluids, morphine and Dilaudid with some relief
- Presentation not consistent with recurrent acute pancreatitis, unclear if due to tiny developing pseudocyst although seems unlikely
- Protonix 40 twice daily
-Zofran
-Dilaudid for severe pain
- Clear liquid diet
- Consider GI if no improvement
# Urinary frequency
- Urinalysis pending
Essential hypertension
- Continue nifedipine
Hyperlipidemia
- Continue statin
CKD 3
- Renal function at baseline
Anxiety/depression
- Continue trazodone
Full code
DVT prophylaxis�heparin
Clear liquids
[2025-02-10 13:46] LABS: Urine Character Clear (Clear)
[2025-02-10 14:06] LABS: Urine Red Blood Cell 0-2 /HPF (0-2); Urine Squamous Cell 16-20 /LPF (Few); Urine Urothelial Cell 0-2 /LPF (FEW)
--- NOTE | 2025-02-10 14:54 | CM ---
Chart reviewed. HORACIO reviewed with patient at ED bedside
Spoke with patient at ED bedside
Lives with in [address]
no DME
Independent with ADLs
PCP Dr. Wilda Reynolds
Pharmacy [facility]
hx of [facility] [place]iting [place] in the past
no hx of SNF
DCP is to go home
can drive home
will continue to follow up for any dcp needs
[2025-02-10] MEDS: TYLENOL 1000 MG PO (15:21)
--- NOTE | 2025-02-10 15:44 | PTCARENOTE ---
Addendum entered by Alison Kwok RN 02/10/25 17:53:
Pt's temp at present 100.2. Blood cultures being drawn and Rocephin to be started.
Original Note:
Received pt from ED with a temp of 103.1 and rigors. Tylenol 1000mg po given at [address] Liu jaquez [facility] [place] hospitalist made aware. Will also alert Dr Moon
[2025-02-10 17:32] LABS: COVID-19 Antigen Negative (Negative)
[2025-02-10] MEDS: STERILE WATER FOR INJECTION 10 ML IV (18:10)
[2025-02-10] MEDS: ROCEPHIN 1000 MG IV (18:11)
[2025-02-10] MEDS: HEPARIN 5000 UNITS SC (20:10)
[2025-02-10] MEDS: PROTONIX IV 40 MG IV (20:12)
[2025-02-10] MEDS: NSS (PRESERVATIVE FREE) 10 ML IV (20:13)
[2025-02-10] MEDS: FLUSH (NSS) 1 FLUSH IV (20:15)
[2025-02-10] MEDS: PROCARDIA XL (EXTENDED RELEASE) 60 MG PO (20:17)
[2025-02-10] MEDS: DESYREL 75 MG PO (21:12)
[2025-02-10] MEDS: PRAVACHOL 40 MG PO (21:13)
[2025-02-11] MEDS: DILAUDID 0.5 MG IV (01:13)
[2025-02-11] MEDS: FLUSH (NSS) 1 FLUSH IV (01:13)
[2025-02-11 07:33] LABS: ALT (SGPT) 101 U/L (0-35); AST (SGOT) 79 U/L (14-36); Albumin 3.3 g/dl (3.5-5.0); Alkaline Phosphatase 101 U/L (38-126); Blood Urea Nitrogen 21 mg/dl (7-17); Calcium 8.5 mg/dl (8.4-10.2); Carbon Dioxide 24 mmol/L (22-30); Chloride 107 mmol/L (98-107); Estimated Creatinine Clearance 44 ml/min; Glucose 100 mg/dl (70-99); Potassium 4.0 mmol/L (3.5-5.1); Sodium 136 mmol/L (135-145); Total Protein 5.8 g/dl (6.3-8.2); eGFR 47.21
[2025-02-11 07:46] VITALS: BP 130/61
[2025-02-11 07:54] LABS: Hematocrit 35.7 % (37.0-47.0); Hemoglobin 12.1 g/dL (12.0-16.0); Mean Corp Hgb Conc. 33.9 g/dL (33.0-37.0); Mean Corpuscular Volume 87.7 fL (81.0-99.0); Nucleated Red Blood Cells % 0 %; Platelet Count 193 10^3/uL (130-400); Red Cell Dist. Width 13.3 % (11.5-14.5)
--- NOTE | 2025-02-11 09:01 | W.PN.HOSP.TC ---
Addendum entered and electronically signed by Praveen Georges MD 02/11/25 12:50:
Attending�addendum:
I saw and evaluated the patient independently. I reviewed and discussed the resident�s note and agree with findings and plan as documented in the resident�s note.� patient seen and examined at bedside, patient still complaining of significant
epigastric pain and left lower quadrant pain, elevated liver enzymes today, and fever overnight.
Concern of cholangitis.
GI consult.
Physical�exam:
GENERAL : Patient is awake, alert, oriented x3
HEENT: Nonicteric sclerae, PERRLA, EOMI. Oropharynx clear. Moist mucous membranes. Conjunctivae appear well perfused.
CHEST: Chest wall is nontender.
HEART: Regular rate and rhythm without murmurs.
LUNGS: Clear to auscultation bilaterally.
ABDOMEN:tender
RECTAL: Deferred.
MUSCLES/EXTREMITIES: No abnormal range of motion, no swelling.SKIN: No rash, no excessive bruising, petechiae, or purpura.
NEUROLOGIC: Cranial nerves II-XII intact without motor/sensory deficit.
�
Assessment/plan:
Sepsis with acute organ dysfunction.
Secondary to UTI, rule out intra-abdominal infection as cholangitis
Change antibiotics to cefepime/metronidazole.
GI consult.
Patient may need MRCP
Abdominal pain is out of proportion of UTI
IV fluid
Clear liquid diet
CODE STATUS: Full code
DVT prophylaxis: Heparin
Diet: CLD
Disposition: Antibiotics, GI consult.
�
Total time spent on today�s encounter was 51 minutes which included time spent in counseling the patient/family regarding diagnosis and treatment plan as listed above, goals of care, and symptom management. Case was discussed with nursing staff,
specialists, and care coordinators/case management. All labs and imaging personally reviewed by me. Remainder the time spent in detailed review of previous records, lab data, imaging, and other medical provider documentation.
Original Note:
Today's Communication/Plan
-
Switch from ceftriaxone to cefepime and metronidazole to cover possible intra-abdominal infection
Appreciate GI
Continue pain management
Upgrade level of care to inpatient
Continue fluids, PPI, Zofran
Assessment / Plan
Assessment / Plan
Impression:
74-year-old female with past medical history of pancreatitis, hypertension, hyperlipidemia, CKD 3, anxiety, hypertension with recent admission for pancreatitis from 01/17 to 01/20 presented to the ED for severe epigastric abdominal pain. Lipase was
within normal limits and imaging unclear whether there is an acute recurrence of her pancreatitis. She was admitted for severe abdominal pain likely secondary to GERD/acute gastritis and provided fluids, Dilaudid and started on Protonix twice
daily. In the afternoon, she developed a fever of 103 and a UA was done concerning for UTI. She was started on ceftriaxone. The next morning, she endorsed pleurisy and crackles were auscultated on physical exam. Chest x-ray was ordered to
evaluate for possible pneumonia. Due to high fever and severe epigastric abdominal pain with no clear cause as of yet, there is clinical concern for ascending cholangitis. Ceftriaxone was switched to cefepime and metronidazole and GI was consulted.
Imaging:
CT abdomen pelvis with IV contrast 02/10/2025:
Colonic diverticulosis, most prominent sigmoid, without gross accompanying inflammatory changes. No intestinal obstruction or free air.
Recent history of acute pancreatitis with minimal ill-defined hypodensity seen in the pancreatic head in comparison to recent prior CT, cannot exclude some residual minor/recurrent changes of acute pancreatitis or developing tiny pseudocyst.
Symmetric renal excretion. Small bilateral simple renal cysts as well as additional subcentimeter low-attenuation renal lesions too small to characterize.
Prior cholecystectomy, appendectomy and hysterectomy.
Soft tissues of the true pelvis including the urinary bladder significantly obscured by beam hardening artifact from bilateral hip arthroplasties.
Abdomen pelvis CT with IV contrast 02/01/2025:
Significant decrease in changes of acute pancreatitis in the interval since recent prior CT. No well-formed abnormal focal peripancreatic fluid collection.
Sigmoid diverticulosis significantly obscured by beam hardening artifact from bilateral hip arthroplasties. No intestinal obstruction or free air.
Simple renal cysts as well as additional bilateral subcentimeter low-attenuation renal lesions too small to characterize.
Prior cholecystectomy, appendectomy and hysterectomy. Mild intrahepatic biliary tract dilatation most likely the sequela of prior cholecystectomy. Suggest correlation with LFTs.
Plan:
Sepsis secondary to UTI until proven otherwise with associated organ dysfunction of acute hypoxemic respiratory failure
-- Temp 103.1 yesterday, WBC 15.3 now 13.3, placed on 2 L overnight for oxygen saturations 88-89
-- UA reveals 11-15 WBC, moderate bacteria plus leukocyte esterase -urine culture pending
-- Covid, flu both negative. Chest x-ray pending - if pneumonia will add legionella and strep antigen testing and adjust antibiotics accordingly
-- Blood cultures pending
-- Higher clinical concern for sepsis secondary to intra-abdominal process given she has severe epigastric pain
-- Ceftriaxone switched to cefepime and metronidazole to cover possible GI etiology
-- Upgrade level of care from observation to inpatient
Severe abdominal pain
Recent episode of acute pancreatitis
Elevated LFTs
-- Differentials include recurrence of acute pancreatitis, GERD, acute gastritis, ascending cholangitis
-- Lipase within normal limits and imaging not convincing of acute pancreatitis making it less likely. As pain is continuing with PPI and no diarrhea, this makes GERD and acute gastritis less likely.
-- For her last episode of pancreatics, no recent alcohol use, no history of autoimmune disease, triglycerides 69, no gallstones on imaging, no changes in recent meds - recommended to follow-up with GI outpatient for further abdominal imaging
-- Today, her AST increased from 18 >79 and ALT 15 > 101. Alk phos 101 within normal limits.
-- Continue pantoprazole 40 twice daily
-- Zofran
-- Dilaudid
-- Clear liquid diet
-- Clinical concern for ascending cholangitis given high fever, pain and new increase in LFTs without clear other cause
-- Ceftriaxone upgraded to cefepime and metronidazole to cover possible GI etiology
-- Appreciate GI
Headache
-- 9 out of 10 in severity according to patient, not associated with neck stiffness or pain
-- Neurologically intact
-- Patient states she thinks she thinks its likely due to poor p.o. intake over the last few days
-- She does have morphine listed in her drug allergies and she received a dose yesterday
-- Monitor
Essential hypertension
-- Continue nifedipine with hold parameters
Hyperlipidemia
-- Continue statin
CKD 3A
-- Monitor cr
Anxiety/depression
--Continue trazodone
Full code
DVT heparin
Clear liquids
Anticipated Discharge: 24 - 48 hours
Subjective/Interval History
-
Date of Service: February 11, 2025
Overnight was placed on 2 L of oxygen for oxygen saturations 88-99. Per nursing, believed to be due to poor inspiratory effort. This morning she does complain of pleurisy. Complained of abdominal pain overnight waking up every 2 hours. Also
complains of pleurisy. She also endorses a 9 out of 10 headache. She denies any neck stiffness, new focal neurological deficits, changes in vision, dizziness. She believes the headache is due to lack of eating the last few days.
Objective Data
-
Labs:
Laboratory Results
02/11/25
06:34
WBC 13.3 H
Hgb 12.1
Hct 35.7 L
Plt Count 193 D
Sodium 136
Potassium 4.0
Chloride 107
Carbon Dioxide 24
BUN 21 H
Creatinine 1.2 H
Glucose 100 H
Calcium 8.5
Total Bilirubin 0.5
AST 79 H
ALT 101 H
Alkaline Phosphatase 101
Vital Signs:
Vital Signs
Temp Pulse Resp BP Pulse Ox
98.4 F 68 16 130/61 92
02/11/25 07:46 02/11/25 07:46 02/11/25 07:46 02/11/25 07:46 02/11/25 07:46
I&O
02/10/25 02/11/25 02/12/25
06:59 06:59 06:59
Intake Total 500 / 500
Balance 500 / 500
Review of Systems
-
History Source: Patient
Constitutional: Reports Fever, No Appetite and Chills
Respiratory: Reports Pleurisy and Other (Denies cough)
Cardiac: Reports No Symptoms
Abdomen/GI: Reports Abdominal Pain, Nausea, Vomiting (1 episode of vomiting overnight) and Diarrhea (No diarrhea)
Genitourinary: Reports No Symptoms
Musculoskeletal: Reports No Symptoms
Skin: Reports No Symptoms
Neuro: Reports No Symptoms
Physical Exam
-
General: No Apparent Distress and Comfortable
HEENT: Normocephalic
Respiratory: Crackles (Bilateral lower lung rodriguez, right middle lobe)
Cardiac: Regular Rhythm and S1/S2
GI: Soft, Nondistended, Normal Bowel Sounds and Tender (Midepigastric, left upper quadrant)
Rectal: Hem Positive
Musculoskeletal: No Edema
Skin: Warm and Dry
Neuro: AO x 3, Central Nerve's Intact and No Sensory Deficits
Psych: Calm
[2025-02-11] MEDS: NSS (PRESERVATIVE FREE) 10 ML IV ×2 (09:33→20:04)
[2025-02-11] MEDS: PROTONIX IV 40 MG IV ×2 (09:34→20:04)
[2025-02-11] MEDS: HEPARIN 5000 UNITS SC ×2 (09:34→20:03)
[2025-02-11] MEDS: TYLENOL 1000 MG PO (10:02)
[2025-02-11] MEDS: MAALOX 30 ML PO (10:02)
[2025-02-11] MEDS: PROCARDIA XL (EXTENDED RELEASE) 60 MG PO ×2 (10:38→20:47)
[2025-02-11] MEDS: MAXIPIME 2000 MG IV (12:36)
[2025-02-11] MEDS: STERILE WATER FOR INJECTION 10 ML IV (12:37)
[2025-02-11] MEDS: FLAGYL 500 MG 100 IV ×2 (12:37→20:03)
[2025-02-11] MEDS: NSS 1000 IV (12:52)
--- NOTE | 2025-02-11 12:58 | CON.GI ---
Consultation
-
Date/Time Consultation Requested: 02/11/25 11:28am
Date/Time Consultation Performed: 02/11/25 12:59pm
Requesting Provider: Giovana Parker
Performing Provider: Jovanni Rivas
Reason for Consultation: abd pain, recent pancreatitis
Medical History
Chief Complaint / HPI
Chief Complaint: abd pain, recent pancreatitis
History of Present Illness:
74yo female recently admitted for acute pancreatitis seen on CT. Discharged after 3 days and resolution of symptoms. IHDD seen on CT but she is post telma. Recommendation was for f/u imaging vs EUS after resolution pancreatitis. She has hx
pancreatic head lesion that has been seen dating back to 2008. MRI in 2022 at [facility] showed normal pancreas. During recent admission, WARREN, IgG4, TG all normal. She was pain free until . She began with similar epigastric pain
after dinner and came back to .
Past Medical History
Past Medical History: HTN, Hypercholesterolemia and Renal Failure
Past Surgical History: Appendectomy, Cholecystectomy (over 50 years ago) and Gynecological
Social History
Tobacco: Non-Smoker
Alcohol: None
Drug: None
Family History
Family History: Reviewed & Not Pertinent
Allergies / Home Medications
Allergy/AdvReac Type Severity Reaction Status Date / Time
cortisone Allergy flushing, Verified 02/10/25 09:04
elevated BP
house dust Allergy sneezing, Verified 02/10/25 09:04
sinus
problems
morphine Allergy Nausea / Verified 02/10/25 09:04
Vomiting
pollen extracts Allergy sneezing, Verified 02/10/25 09:04
sinus
problems
tramadol Allergy Sedation Verified 02/10/25 09:04
'too
strong'
DEVON Inhibitors AdvReac Upset Verified 02/10/25 09:04
stomach
amoxicillin AdvReac upset Verified 02/10/25 09:04
stomach
bacitracin AdvReac upset Verified 02/10/25 09:04
stomach
dextrose AdvReac stomach Verified 02/10/25 09:04
cramps
erythromycin base AdvReac STOMACH Verified 02/10/25 09:04
(Erythromycin Base) CRAMPING
eszopiclone (From Lunesta) AdvReac headache Verified 02/10/25 09:04
and drowsy
levofloxacin (From Levaquin) AdvReac STOMACH Verified 02/10/25 09:04
CRAMPING
meloxicam AdvReac upset Verified 02/10/25 09:04
stomach
potassium AdvReac GI problems Verified 02/10/25 09:04
tizanidine (From Zanaflex) AdvReac Sedation Verified 02/10/25 09:04
�Medication �Instructions �Recorded
pravastatin 40 mg tablet 40 mg PO HS High Cholesterol 11/15/22
baclofen 10 mg tablet 10 mg PO TIDPRN PRN spasms 01/17/25
trazodone 50 mg tablet 75 mg PO HS Mental Health/Anxiety 01/17/25
acetaminophen 500 mg tablet 1,000 mg PO Q6HPRN PRN mild pain 02/10/25
(Tylenol Extra Strength)
nifedipine 60 mg tablet,extended 60 mg PO BID Heart 02/10/25
release Disease/Condition
polyethylene glycol 3350 17 gram 17 g PO DAILYPRN PRN constipation 02/10/25
oral powder packet (Miralax)
Review of Systems
-
All other systems: A 12 pt ROS was Negative except as stated above in HPI
Vital Signs
Temp Pulse Resp BP Pulse Ox
99.1 F 68 16 130/61 92
02/11/25 11:19 02/11/25 07:46 02/11/25 07:46 02/11/25 07:46 02/11/25 07:46
Physical Exam
Exam
General: No Apparent Distress
HEENT: Normocephalic and Atraumatic
Respiratory: Non Labored Respirations
GI: Soft, Non Distended and Tender (mild epigastric tender)
Results
WBC 13.3 10^3/uL (4.8-10.8) H 02/11/25 06:34
Hgb 12.1 g/dL (12.0-16.0) 02/11/25 06:34
Hct 35.7 % (37.0-47.0) L 02/11/25 06:34
MCV 87.7 fL (81.0-99.0) 02/11/25 06:34
Plt Count 193 10^3/uL (130-400) D 02/11/25 06:34
Absolute Neuts (auto) 11.5 10^3/uL (1.4-6.5) H 02/11/25 06:34
Sodium 136 mmol/L (135-145) 02/11/25 06:34
Potassium 4.0 mmol/L (3.5-5.1) 02/11/25 06:34
Chloride 107 mmol/L (98-107) 02/11/25 06:34
Carbon Dioxide 24 mmol/L (22-30) 02/11/25 06:34
BUN 21 mg/dl (7-17) H 02/11/25 06:34
Creatinine 1.2 mg/dL (0.6-1.0) H 02/11/25 06:34
Calcium 8.5 mg/dl (8.4-10.2) 02/11/25 06:34
Total Bilirubin 0.5 mg/dl (0.2-1.3) 02/11/25 06:34
AST 79 U/L (14-36) H 02/11/25 06:34
ALT 101 U/L (0-35) H 02/11/25 06:34
Alkaline Phosphatase 101 U/L (38-126) 02/11/25 06:34
Lipase 85 U/L (23-300) 02/10/25 09:39
Diagnostic Image Results:
Prior GI Procedures:
EGD:
Colonoscopy:
Assessment / Plan
-
Summary: 74yo female presents with epigastric pain x 1 day similar to pain during recent admission for pancreatitis. Also fever 103.1. LFTs normal on admission but bumped up to AST 79, ALT 101. During recent admission early January, CT showed
pancreatitis and dilated bile ducts, post cholecystectomy. LFTs mildly elevated AST 80, ALT 38 during that admission. After d/c, pain free until . Repeat CT shows pancreatitis changes almost resolved, minimal ill-defined hypodensity
in pancreatic head. She has a hx pancreatic lesion in head that has been stable over the years on multiple imaging. MRI in 2022 normal pancreas. Denies EtOH. WARREN, IgG4, TG normal during earlier admisison
11/15/22 CT [facility]- Possible pancreatic head mass vs progressed pancreatic fatty infiltration 1.9cm, similar findings present back to 2008, but more prominent on current study.
02/12/23 MRI- Mild EHDD/IHDD expected post telma, stable to minimally increased. No pancreatic mass
03/17/23 CT [facility]- Subtle low attenuation at level of head of pancreas similar to prior. Stable mild IHDD and IHDD s/p telma
01/17/25 CT [facility]- Acute interstitial edematous pancreatitis. Moderate/severe IHDD. Mild EHDD. Prior telma
02/01/25 CT [facility]- Significant decrease in changes of acute pancreatitis. No focal fluid collection. Mild IHDD likely sequela from prior telma.
02/10/25 CT [facility]- Recent history of acute pancreatitis with minimal ill-defined hypodensity seen in pancreatic head, cannot exclude some residual minor/recurrent changes of acute pancreatitis or developing tiny pseudocyst.
Impression:
Epigastric pain
Fever
Recent admission for pancreatitis
S/P telma
Hx stable pancreatic head lesion and IHDD/EHDD
Recommendations:
Will order MRI/MRCP to r/o CBD stone as cause for fever and mild LFT elevation
Cont abx per Hospitalist team
Trend LFTs
Will follow
-
-
Thank you for consultation and allowing me to participate in the patient's care. Please call the relocation services specialist GI physician during the after hours with any questions or concerns.
[2025-02-11 15:42] VITALS: BP 125/54
[2025-02-11] MEDS: DESYREL 75 MG PO (21:35)
[2025-02-11] MEDS: PRAVACHOL 40 MG PO (21:36)
[2025-02-11 23:39] VITALS: BP 133/58
[2025-02-12] MEDS: STERILE WATER FOR INJECTION 10 ML IV ×3 (00:16→22:40)
[2025-02-12] MEDS: NSS 1000 IV ×2 (00:16→15:30)
[2025-02-12] MEDS: MAXIPIME 2000 MG IV ×3 (00:24→22:40)
[2025-02-12] MEDS: VALIUM 1 MG PO (03:46)
[2025-02-12] MEDS: FLAGYL 500 MG 100 IV ×3 (03:47→20:46)
[2025-02-12 07:26] LABS: Hematocrit 34.2 % (37.0-47.0); Hemoglobin 11.6 g/dL (12.0-16.0); Mean Corp Hgb Conc. 33.9 g/dL (33.0-37.0); Mean Corpuscular Volume 87.9 fL (81.0-99.0); Nucleated Red Blood Cells % 0 %; Platelet Count 181 10^3/uL (130-400); Red Cell Dist. Width 12.9 % (11.5-14.5)
[2025-02-12 07:45] VITALS: BP 156/67
[2025-02-12 08:05] LABS: ALT (SGPT) 59 U/L (0-35); AST (SGOT) 24 U/L (14-36); Albumin 3.2 g/dl (3.5-5.0); Alkaline Phosphatase 89 U/L (38-126); Blood Urea Nitrogen 15 mg/dl (7-17); Calcium 8.5 mg/dl (8.4-10.2); Carbon Dioxide 24 mmol/L (22-30); Chloride 108 mmol/L (98-107); Estimated Creatinine Clearance 53 ml/min; Glucose 91 mg/dl (70-99); Potassium 3.6 mmol/L (3.5-5.1); Sodium 137 mmol/L (135-145); Total Protein 5.7 g/dl (6.3-8.2); eGFR 58.75
--- NOTE | 2025-02-12 08:19 | W.PN.HOSP.TC ---
Addendum entered and electronically signed by Robert Miller MD 02/12/25 13:52:
Attending�addendum:
I saw and evaluated the patient independently. I reviewed and discussed the resident�s note and agree with findings and plan as documented in the resident�s note.� patient seen and examined at bedside, patient still complain of some abdominal pain
but overall improving. No nausea or vomiting
Physical�exam:
GENERAL : Patient is awake, alert, oriented x3
HEENT: Nonicteric sclerae, PERRLA, EOMI. Oropharynx clear. Moist mucous membranes. Conjunctivae appear well perfused.
CHEST: Chest wall is nontender.
HEART: Regular rate and rhythm without murmurs.
LUNGS: Clear to auscultation bilaterally.
ABDOMEN:tender LLQ, no distention
RECTAL: Deferred.
MUSCLES/EXTREMITIES: No abnormal range of motion, no swelling.SKIN: No rash, no excessive bruising, petechiae, or purpura.
NEUROLOGIC: Cranial nerves II-XII intact without motor/sensory deficit.
�
Assessment/plan:
Sepsis with acute organ dysfunction with acute hypoxic respiratory failure.
Secondary to possible cholangitis (possible passed stone, and rule out actual biliary obstruction although less likely since LFTs trending down but possible). Seems less likely UTI.
Continue antibiotics cefepime/metronidazole.
Respiratory status improved
GI consult appreciated.
Plan for MRCP today
IV fluid
Clear liquid diet
Pancreatic head mass
Recent pancreatitis:
MRCP
CODE STATUS: Full code
DVT prophylaxis: Heparin
Diet: CLD
Disposition: Antibiotics. MRCP pending.
Original Note:
Today's Communication/Plan
-
MRI/MRCP to rule out CBD stone as cause for fever
Continue antibiotics for now
Pain management, zofran as needed, PPI, fluids
Assessment / Plan
Assessment / Plan
Impression:
74-year-old female with past medical history of pancreatitis, hypertension, hyperlipidemia, CKD 3, anxiety, hypertension with recent admission for pancreatitis from 01/17 to 01/20 presented to the ED for severe epigastric abdominal pain. Lipase was
within normal limits and imaging unclear whether there is an acute recurrence of her pancreatitis. She was admitted for severe abdominal pain likely secondary to GERD/acute gastritis and provided fluids, Dilaudid and started on Protonix twice
daily. In the afternoon, she developed a fever of 103 and a UA was done concerning for UTI. She was started on ceftriaxone. The next morning, she endorsed pleurisy and crackles were auscultated on physical exam. Chest x-ray was ordered to
evaluate for possible pneumonia. Due to high fever and severe epigastric abdominal pain with no clear cause as of yet, there is clinical concern for ascending cholangitis. Ceftriaxone was switched to cefepime and metronidazole and GI was consulted.
Imaging:
CT abdomen pelvis with IV contrast 02/10/2025:
Colonic diverticulosis, most prominent sigmoid, without gross accompanying inflammatory changes. No intestinal obstruction or free air.
Recent history of acute pancreatitis with minimal ill-defined hypodensity seen in the pancreatic head in comparison to recent prior CT, cannot exclude some residual minor/recurrent changes of acute pancreatitis or developing tiny pseudocyst.
Symmetric renal excretion. Small bilateral simple renal cysts as well as additional subcentimeter low-attenuation renal lesions too small to characterize.
Prior cholecystectomy, appendectomy and hysterectomy.
Soft tissues of the true pelvis including the urinary bladder significantly obscured by beam hardening artifact from bilateral hip arthroplasties.
Abdomen pelvis CT with IV contrast 02/01/2025:
Significant decrease in changes of acute pancreatitis in the interval since recent prior CT. No well-formed abnormal focal peripancreatic fluid collection.
Sigmoid diverticulosis significantly obscured by beam hardening artifact from bilateral hip arthroplasties. No intestinal obstruction or free air.
Simple renal cysts as well as additional bilateral subcentimeter low-attenuation renal lesions too small to characterize.
Prior cholecystectomy, appendectomy and hysterectomy. Mild intrahepatic biliary tract dilatation most likely the sequela of prior cholecystectomy. Suggest correlation with LFTs.
Plan:
Sepsis secondary to UTI until proven otherwise with associated organ dysfunction of acute hypoxemic respiratory failure
-- Temp 103.1 02/10/25, WBC 15.3 now 13.3, placed on 2 L overnight for oxygen saturations 88-89 - weaned off O2
-- UA reveals 11-15 WBC, moderate bacteria plus leukocyte esterase -urine culture contaminated
-- Covid, flu both negative. Chest x-ray negative
-- Blood cultures prelim 24 hrs negative
-- Higher clinical concern for sepsis secondary to intra-abdominal process given she has severe epigastric pain
-- Ceftriaxone switched to cefepime and metronidazole to cover possible GI etiology - day 3
-- WBC today 8.5, remains afebrile
-- MRCP pending per GI
Severe abdominal pain
Recent episode of acute pancreatitis
Elevated LFTs
-- Differentials include recurrence of acute pancreatitis, GERD, acute gastritis, ascending cholangitis
-- Lipase within normal limits and imaging not convincing of acute pancreatitis making it less likely. As pain is continuing with PPI and no diarrhea, this makes GERD and acute gastritis less likely.
-- For her last episode of pancreatics, no recent alcohol use, WARREN and IgG4 negative, triglycerides 69, no gallstones on imaging, no changes in recent meds - recommended to follow-up with GI outpatient for further abdominal imaging
-- AST increased from 18 ->79 and ALT 15 > 101 - now downtrending
-- Continue pantoprazole 40 twice daily
-- Zofran
-- Dilaudid
-- Clear liquid diet
-- Ceftriaxone upgraded to cefepime and metronidazole to cover possible GI etiology -day 3
-- MRI/MRCP to r/o CBD stone as cause for fever and mild LFT elevation per GI
-- Appreciate GI
Headache
-- 9 out of 10 in severity according to patient, not associated with neck stiffness or pain 02/11/25
-- Neurologically intact
-- Patient states she thinks she thinks its likely due to poor p.o. intake over the last few days
-- She does have morphine listed in her drug allergies and she received a dose yesterday
-- Monitor - today improved from yesterday
Essential hypertension
-- Continue nifedipine with hold parameters
Hyperlipidemia
-- Continue statin
CKD 3A
-- Monitor cr
Anxiety/depression
-- Continue trazodone
Full code
DVT heparin
Clear liquids
Anticipated Discharge: 24 - 48 hours
Subjective/Interval History
-
Date of Service: February 12, 2025
Anxious and tearful overnight. Ongoing abdominal pain. Headache has significantly improved. Has been weaned off oxygen. Does endorse some chills overnight but no fevers.
Objective Data
-
Labs:
Laboratory Results
02/12/25
06:53
WBC 8.5
Hgb 11.6 L
Hct 34.2 L
Plt Count 181
Sodium 137
Potassium 3.6
Chloride 108 H
Carbon Dioxide 24
BUN 15
Creatinine 1.0
Glucose 91
Calcium 8.5
Total Bilirubin 0.3
AST 24
ALT 59 H
Alkaline Phosphatase 89
Vital Signs:
Vital Signs
Temp Pulse Resp BP Pulse Ox
98.5 F 68 16 156/67 92
02/12/25 07:45 02/12/25 07:45 02/12/25 07:45 02/12/25 07:45 02/12/25 07:45
I&O
02/11/25 02/12/25 02/13/25
06:59 06:59 06:59
Intake Total 500 / 500 1080 / 1080
Balance 500 / 500 1080 / 1080
Review of Systems
-
History Source: Patient
Constitutional: Reports Chills
EENT: Reports No Symptoms Reported
Respiratory: Reports No Symptoms
Cardiac: Reports No Symptoms
Abdomen/GI: Reports Abdominal Pain and Nausea
Genitourinary: Reports Frequency
Neuro: Reports Headache (Improved from yesterday)
Physical Exam
-
General: Conversant and Other (Tearful)
HEENT: Normocephalic
Respiratory: Crackles (Bilateral bases)
Cardiac: Regular Rhythm and S1/S2
GI: Soft, Nondistended, Normal Bowel Sounds and Tender (Midepigastric, left lower quadrant)
Musculoskeletal: No Edema
Skin: Warm and Dry
Neuro: AO x 3
Psych: Calm
[2025-02-12] MEDS: HEPARIN 5000 UNITS SC ×2 (08:31→20:47)
[2025-02-12] MEDS: PROTONIX IV 40 MG IV ×2 (08:34→20:48)
[2025-02-12] MEDS: PROCARDIA XL (EXTENDED RELEASE) 60 MG PO ×2 (08:34→20:48)
[2025-02-12] MEDS: NSS (PRESERVATIVE FREE) 10 ML IV ×2 (08:34→20:48)
[2025-02-12] MEDS: NSS (PRESERVATIVE FREE) 0.5 ML IV (08:34)
[2025-02-12] MEDS: ATIVAN 1 MG IV (08:34)
--- NOTE | 2025-02-12 08:52 | W.PN.GI.CBS2 ---
Today's Communication / Plan
-
Afebrile overnight
WBC much improved today down to 8.5
LFTs also improved
Await MRI/MRCP r/o CBD stone. Also can f/u on recent pancreatitis and known pancreatic head lesion followed for years
Assessment / Plan
-
Summary: 74yo female presents with epigastric pain x 1 day similar to pain during recent admission for pancreatitis. Also fever 103.1. LFTs normal on admission but bumped up to AST 79, ALT 101. During recent admission early January, CT showed
pancreatitis and dilated bile ducts, post cholecystectomy. LFTs mildly elevated AST 80, ALT 38 during that admission. After d/c, pain free until . Repeat CT shows pancreatitis changes almost resolved, minimal ill-defined hypodensity
in pancreatic head. She has a hx pancreatic lesion in head that has been stable over the years on multiple imaging. MRI in 2022 normal pancreas. Denies EtOH. WARREN, IgG4, TG normal during earlier admisison
11/15/22 CT [facility]- Possible pancreatic head mass vs progressed pancreatic fatty infiltration 1.9cm, similar findings present back to 2008, but more prominent on current study.
02/12/23 MRI- Mild EHDD/IHDD expected post telma, stable to minimally increased. No pancreatic mass
03/17/23 CT [facility]- Subtle low attenuation at level of head of pancreas similar to prior. Stable mild IHDD and IHDD s/p telma
01/17/25 CT [facility]- Acute interstitial edematous pancreatitis. Moderate/severe IHDD. Mild EHDD. Prior telma
02/01/25 CT [facility]- Significant decrease in changes of acute pancreatitis. No focal fluid collection. Mild IHDD likely sequela from prior telma.
02/10/25 CT [facility]- Recent history of acute pancreatitis with minimal ill-defined hypodensity seen in pancreatic head, cannot exclude some residual minor/recurrent changes of acute pancreatitis or developing tiny pseudocyst.
Impression:
Epigastric pain
Fever. 103.1 on 02/10, afebrile since then
Elevated LFTs after admission
Recent admission for pancreatitis
S/P telma
Hx stable pancreatic head lesion and IHDD/EHDD
Subjective
Subjective
Date of Service: February 12, 2025
Mild LLQ pain. Otherwise no complaints
Objective
Data Reviewed
Laboratory Data:
Laboratory Results
02/12/25 06:53
02/12/25 06:53
Laboratory Results
Total Bilirubin 0.3 mg/dl (0.2-1.3) 02/12/25 06:53
AST 24 U/L (14-36) 02/12/25 06:53
ALT 59 U/L (0-35) H 02/12/25 06:53
Alkaline Phosphatase 89 U/L (38-126) 02/12/25 06:53
Lipase 85 U/L (23-300) 02/10/25 09:39
Vital Signs and I&O:
Vital Signs
Temp Pulse Resp BP Pulse Ox
98.5 F 68 16 156/67 92
02/12/25 07:45 02/12/25 07:45 02/12/25 07:45 02/12/25 07:45 02/12/25 07:45
I&O
02/11/25 02/12/25 02/13/25
06:59 06:59 06:59
Intake Total 500 / 500 1080 / 1080
Balance 500 / 500 1080 / 1080
Physical Exam
Physical Exam
GI: Soft, Non Distended and Tender (minimal L sided tender)
[2025-02-12 15:05] VITALS: BP 133/80; O2SAT 96
[2025-02-12 15:12] VITALS: BP 133/80
[2025-02-12 15:26] VITALS: BP 133/88
[2025-02-12 17:01] LABS: D-Dimer 1.27 ug/mlFEU (0.00-0.50)
[2025-02-12 17:03] LABS: Troponin I < 0.012 ng/ml
[2025-02-12] MEDS: DESYREL 75 MG PO (22:38)
[2025-02-12] MEDS: PRAVACHOL 40 MG PO (22:39)
[2025-02-12 23:00] VITALS: BP 146/70
[2025-02-13] MEDS: NSS 1000 IV ×2 (03:49→16:01)
[2025-02-13] MEDS: FLAGYL 500 MG 100 IV ×2 (03:50→11:39)
[2025-02-13] MEDS: NSS IV (07:21)
--- NOTE | 2025-02-13 07:55 | W.PN.HOSP.TC ---
Addendum entered and electronically signed by Mena Weiss MD 02/13/25 15:45:
Seen and examined the patient. Agree with the plan formulated by the resident. See changes in my documentation
74-year-old female presented with epigastric and abdominal pain. She was recently admitted with pancreatitis from 01/17/2025 to 01/20/2025. She developed a fever of 103. Urinalysis showed UTI. Next morning she had pleurisy x-ray showed possible
pneumonia.
CT abdomen and pelvis with IV contrast on 02/02/2025 and colonic diverticulosis, most prominent in sigmoid without inflammatory changes. No obstruction or free air. Recent history of acute pancreatitis with minimal ill-defined hypodensity seen in
the pancreatic head in comparison with the prior CT. Cannot exclude residual minor/recurrent changes of acute pancreatitis or developing tiny pseudocyst. Symmetrical renal excretion. Small bilateral simple renal cysts. Prior cholecystectomy
appendectomy and hysterectomy. Soft tissue of the true pelvis including urinary bladder significantly obscured
CT of the chest PE study-02/12/2025-no PE. Trace amount of pleural fluid bilaterally. Patchy parenchymal opacity within the posterior aspect of the both lungs atelectasis/pneumonia
MRI/MRCP-mild intrahepatic and extrahepatic biliary dilatation. No evidence of choledocholithiasis. Previous cholecystectomy. Mild diffuse parenchymal pancreatic atrophy. Moderate chronic bilateral renal disease. 1.1 cm left adrenal adenoma.
Small hiatal hernia. Moderate diverticulosis of the sigmoid colon. Severe multilevel lumbar DDD. Mild airspace consolidation in the basal segments of both lower lobes.
Echo 02/02/2024-LV EF is normal 60%. Normal LV size, wall thickness and systolic function. No regional wall motion abnormalities.
Patient states that she has mild pain in the right lower quadrant
On examination patient is awake alert and oriented
Cardiovascular system S1-S2 appreciated
Abdomen mild epigastric and right lower quadrant discomfort
No pedal edema
# Sepsis
Possibly pneumonia vs viral illness
Urinalysis noted-urine culture contaminated
COVID and influenza negative
Blood cultures negative so far
No clear intra-abdominal source
Continue cefepime and metronidazole
# Severe abdominal pain on admission
Recent history of pancreatitis
Elevated LFTs -? LFTs are improving
LFTs improving ? Passed a stone versus pancreatitis
WARREN and IgG4 negative, triglycerides 69. No gallstones on imaging
Continue symptomatic treatment with PPI, antiemetics, pain management
Continue full liquid diet-advance as tolerated
# Hypokalemia-replace
# Acute hypoxic respiratory insufficiency-off oxygen now
# Recent admission for pancreatitis from 01/17/2025 to 01/20/2025
MRI with mild diffuse pancreatic parenchymal atrophy
# Hypertension-continue nifedipine
# Hyperlipidemia-on statin
# CKD stage III
# Headache
# Diverticulosis
# Severe multilevel lumbar DDD
# Hiatal hernia
# History of parathyroidectomy
# Adrenal adenoma-outpatient follow-up
# Anxiety and depression-continue trazodone
# Ex-smoker
# DVT prophylaxis- subcutaneous heparin
# Full code
Part of this note was created using voice recognition system. Occasional wrong word or��sound alike� substitutions may have inadvertently occurred due to the inherent limitations of voice recognition software. If noted kindly bring it to my
attention for correction.
Original Note:
Today's Communication/Plan
-
Exercise pulse ox test
Low residue diet
If exercise O2 assessment goes poorly, may get a repeat chest CT
Replete K
Appreciate GI
Assessment / Plan
Assessment / Plan
Impression:
74-year-old female with past medical history of pancreatitis, hypertension, hyperlipidemia, CKD 3, anxiety, hypertension with recent admission for pancreatitis from 01/17 to 01/20 presented to the ED for severe epigastric abdominal pain. Lipase was
within normal limits and imaging unclear whether there is an acute recurrence of her pancreatitis. She was admitted for severe abdominal pain likely secondary to GERD/acute gastritis and provided fluids, Dilaudid and started on Protonix twice
daily. In the afternoon, she developed a fever of 103 and a UA was done concerning for UTI. She was started on ceftriaxone. The next morning, she endorsed pleurisy and crackles were auscultated on physical exam. Chest x-ray was ordered to
evaluate for possible pneumonia. Due to high fever and severe epigastric abdominal pain with no clear cause as of yet, there is clinical concern for ascending cholangitis. Ceftriaxone was switched to cefepime and metronidazole and GI was
consulted. GI recommended MRCP to evaluate for possible CBD to explain fever however no acute cause for pain was found. Workup for atypical abdominal pain from chest etiology was started. EKG was nonischemic and troponin were negative. D-dimer
slightly elevated at 1.[address] PE was done. CT did not reveal any PE, however it was a poor study and radiology recommended repeat if high clinical suspicion for PE as they could not visualize the outer lobe vasculature.
Imaging:
CT abdomen pelvis with IV contrast 02/10/2025:
Colonic diverticulosis, most prominent sigmoid, without gross accompanying inflammatory changes. No intestinal obstruction or free air.
Recent history of acute pancreatitis with minimal ill-defined hypodensity seen in the pancreatic head in comparison to recent prior CT, cannot exclude some residual minor/recurrent changes of acute pancreatitis or developing tiny pseudocyst.
Symmetric renal excretion. Small bilateral simple renal cysts as well as additional subcentimeter low-attenuation renal lesions too small to characterize.
Prior cholecystectomy, appendectomy and hysterectomy.
Soft tissues of the true pelvis including the urinary bladder significantly obscured by beam hardening artifact from bilateral hip arthroplasties.
Abdomen pelvis CT with IV contrast 02/01/2025:
Significant decrease in changes of acute pancreatitis in the interval since recent prior CT. No well-formed abnormal focal peripancreatic fluid collection.
Sigmoid diverticulosis significantly obscured by beam hardening artifact from bilateral hip arthroplasties. No intestinal obstruction or free air.
Simple renal cysts as well as additional bilateral subcentimeter low-attenuation renal lesions too small to characterize.
Prior cholecystectomy, appendectomy and hysterectomy. Mild intrahepatic biliary tract dilatation most likely the sequela of prior cholecystectomy. Suggest correlation with LFTs.
Abdominal MRI with and without contrast 02/12/2025:
IMPRESSION:
1. Mild intrahepatic and extrahepatic biliary dilatation.
2. No evidence for choledocholithiasis.
3. Previous cholecystectomy.
4. Mild diffuse pancreatic parenchymal atrophy.
5. Moderate chronic bilateral renal disease.
6. 1.1 cm left adrenal adenoma.
7. Small hiatal hernia.
8. Moderate diverticulosis in the sigmoid colon.
9. Severe multilevel lumbar discogenic degenerative disease.
10. Mild airspace consolidation in the basilar segments of both lower lobes.
Chest CT PE 02/12/2025:
There is significant motion artifact, which limits evaluation of the pulmonary arteries.
No evidence of pulmonary embolism to the lobar branching level.
If there are persistent clinical symptoms highly suggestive of pulmonary embolism, consideration could be given to a repeat examination. Perhaps ECG gating would improve the degree of motion artifact.
Trace amount of pleural fluid bilaterally.
Patchy parenchymal opacity within the posterior aspect of both lower lobes of the lungs, with differential considerations of atelectasis and/or pneumonia.
Plan:
Sepsis secondary to UTI until proven otherwise with associated organ dysfunction of acute hypoxemic respiratory failure
-- Temp 103.1 02/10/25, WBC 15.3 now 13.3, placed on 2 L overnight for oxygen saturations 88-89 - weaned off O2
-- UA reveals 11-15 WBC, moderate bacteria plus leukocyte esterase -urine culture contaminated
-- Covid, flu both negative. Chest x-ray negative
-- Blood cultures prelim 48 hrs negative
-- Higher clinical concern for sepsis secondary to intra-abdominal process given she has severe epigastric pain - MRI revealed no acute abdominal etiology
-- Ceftriaxone switched to cefepime and metronidazole to cover possible GI etiology - day 4
-- WBC wln, remains afebrile - unlikely to be caused by UTI but no other clear source. All caused by PE?- downgrade to ceftriaxone
Acute hypoxemic respiratory failure
Pleurisy
Pneumonia vs PE?
--placed on 2 L overnight on 02/11/25 for oxygen saturations 88-89 - weaned off O2
-- Pleuritic chest pain remains
-- As MRI did not reveal any abdominal explanation for her pain, chest etiology work up started
-- EKG non-ischemic, troponin <0.012, D-dimer 1.27
-- CT PE no PE, however poor study due to heavy breathing by patient in CT - radiology recommended repeat if high clinical suspicion as unable to visualize outer vasculature
-- Exercise pulse Ox test today as nursing stating patient is still de-satting with movement
-- If O2 drops during assessment, may consider repeat chest CT to evaluate for small PE
Severe abdominal pain
Recent episode of acute pancreatitis
Elevated LFTs
-- Differentials include recurrence of acute pancreatitis, GERD, acute gastritis, ascending cholangitis
-- Lipase within normal limits and imaging not convincing of acute pancreatitis making it less likely. As pain is continuing with PPI and no diarrhea, this makes GERD and acute gastritis less likely.
-- For her last episode of pancreatics, no recent alcohol use, WARREN and IgG4 negative, triglycerides 69, no gallstones on imaging, no changes in recent meds - recommended to follow-up with GI outpatient for further abdominal imaging
-- AST increased from 18 ->79 and ALT 15 > 101 - now wnl
-- Continue pantoprazole 40 twice daily
-- Zofran
-- Dilaudid
-- Ceftriaxone upgraded to cefepime and metronidazole to cover possible GI etiology -day 3
-- MRCP revealed no stone - cardiac work up for atypical causes of upper GI pain per above
-- Appreciate GI
Hypokalemia
-- 3.3 - replete with IV K. Patient verbalized agreement to IV K understanding allergy listed in the chart with GI upset.
Headache
-- 9 out of 10 in severity according to patient, not associated with neck stiffness or pain 02/11/25
-- Neurologically intact
-- Patient states she thinks she thinks its likely due to poor p.o. intake over the last few days
-- She does have morphine listed in her drug allergies and she received a dose yesterday
-- Improved
Essential hypertension
-- Continue nifedipine with hold parameters
Hyperlipidemia
-- Continue statin
CKD 3A
-- Monitor cr
Anxiety/depression
-- Continue trazodone
Pancreatic head mass - not seen on MRI
Full code
DVT heparin
Low residue
Anticipated Discharge: Within 24 hours
Subjective/Interval History
-
Date of Service: February 13, 2025
Denies any nausea and abdominal pain is improving. Headache is also improving. Tolerated full liquid diet well and wants to advance diet. She is complaining of some right sided shoulder and neck pain from being in an awkward position overnight.
Objective Data
-
Labs:
Laboratory Results
02/13/25
07:37
WBC Pending
Hgb Pending
Hct Pending
Plt Count Pending
Sodium Pending
Potassium Pending
Chloride Pending
Carbon Dioxide Pending
BUN Pending
Creatinine Pending
Glucose Pending
Calcium Pending
Total Bilirubin Pending
AST Pending
ALT Pending
Alkaline Phosphatase Pending
Vital Signs:
Vital Signs
Temp Pulse Resp BP Pulse Ox
98.7 F 85 18 146/70 93
02/12/25 23:00 02/12/25 23:00 02/12/25 23:00 02/12/25 23:00 02/12/25 23:00
I&O
02/12/25 02/13/25 02/14/25
06:59 06:59 06:59
Intake Total 1079 / 1080 1760 / 1760
Balance 1080 / 1080 0 / 176
Review of Systems
-
History Source: Patient
EENT: Reports No Symptoms Reported
Respiratory: Reports Pleurisy
Cardiac: Reports No Symptoms
Abdomen/GI: Reports Abdominal Pain and Nausea
Musculoskeletal: Reports No Symptoms
Skin: Reports No Symptoms
Neuro: Reports Headache
Physical Exam
-
General: No Apparent Distress and Comfortable
HEENT: Normocephalic
Respiratory: Crackles (Bilateral lower lobes)
Cardiac: Regular Rhythm and S1/S2
GI: Soft, Nondistended, Normal Bowel Sounds and Tender (Left lower quadrant, midepigastric)
Musculoskeletal: No Edema
Skin: Warm and Dry
Neuro: AO x 3
Psych: Calm
[2025-02-13 08:02] VITALS: BP 135/65
[2025-02-13] MEDS: LIDOCAINE 4% PATCH 1 PATCH TOPICAL (08:04)
[2025-02-13] MEDS: NSS (PRESERVATIVE FREE) 10 ML IV ×2 (08:04→20:25)
[2025-02-13] MEDS: PROTONIX IV 40 MG IV ×2 (08:04→20:25)
[2025-02-13] MEDS: PROCARDIA XL (EXTENDED RELEASE) 60 MG PO ×2 (08:04→20:24)
[2025-02-13] MEDS: HEPARIN SC ×2 (08:11→20:06)
[2025-02-13] MEDS: TYLENOL 1000 MG PO (08:12)
[2025-02-13 08:43] LABS: Hematocrit 35.2 % (37.0-47.0); Hemoglobin 12.2 g/dL (12.0-16.0); Mean Corp Hgb Conc. 34.7 g/dL (33.0-37.0); Mean Corpuscular Volume 86.3 fL (81.0-99.0); Nucleated Red Blood Cells % 0 %; Platelet Count 194 10^3/uL (130-400); Red Cell Dist. Width 13.0 % (11.5-14.5)
[2025-02-13 09:21] LABS: ALT (SGPT) 41 U/L (0-35); AST (SGOT) 15 U/L (14-36); Albumin 3.3 g/dl (3.5-5.0); Alkaline Phosphatase 83 U/L (38-126); Blood Urea Nitrogen 12 mg/dl (7-17); Calcium 8.4 mg/dl (8.4-10.2); Carbon Dioxide 25 mmol/L (22-30); Chloride 107 mmol/L (98-107); Estimated Creatinine Clearance 53 ml/min; Glucose 88 mg/dl (70-99); Potassium 3.3 mmol/L (3.5-5.1); Sodium 137 mmol/L (135-145); Total Protein 5.8 g/dl (6.3-8.2); eGFR 58.75
--- NOTE | 2025-02-13 10:15 | RESPNOTE ---
pt declined ambulation at this time stating she feels too tired to walk.
--- NOTE | 2025-02-13 10:24 | W.PN.GI.CBS2 ---
Addendum entered and electronically signed by Denny Orr MD 02/13/25 16:30:
I saw and examined the patient.
The STEM MOUNTER or PA's note was reviewed and I agree with the note.
Comment: 74-year-old female who follows with me outpatient with recent admission for pancreatitis early January now presenting with epigastric pain that is similar to her pancreatitis. This admission, there is no evidence of pancreatitis on CT or
MRI and normal lipase. She also had a fever to 103. Denies any sick contacts, recent travel. She has some mild nausea, cough, shortness of breath. She does also elicit some dysphagia which has been present since her first admission in early
January. She last had an upper endoscopy done in 2022 which was also done for epigastric pain. Back in 2022 when she had the epigastric pain, she also had weight loss, constipation. She has a known tremor when she gets stressed due to her
anxiety and she was tremulous today as well. Primary team is working up non-GI etiologies for her fever. There is also concern of possible UTI, pleurisy with possible pneumonia although CT did not show pneumonia. Could also be viral. I do think
she needs an upper endoscopy given her dysphagia. Inpatient versus outpatient pending clinical status. She also had very mild elevation of her LFTs which is improving which could be related to her underlying infection.
Original Note:
Today's Communication / Plan
-
etiology of fever unclear MRI with mild duct dilation and panc atrophy but no stone, collection or necrosis on MRI, CT with possible PNA, blood cx neg
remains on antibiotics
remains afebrile and normal WBC and improved LFT's -- still with fatigue
low residue diet
replete K per medical team
Assessment / Plan
-
Summary: 74yo female presents with epigastric pain x 1 day similar to pain during recent admission for pancreatitis. Also fever 103.1. LFTs normal on admission but bumped up to AST 79, ALT 101. During recent admission early January, CT showed
pancreatitis and dilated bile ducts, post cholecystectomy. LFTs mildly elevated AST 80, ALT 38 during that admission. After d/c, pain free until Thanks. Repeat CT shows pancreatitis changes almost resolved, minimal ill-defined hypodensity
in pancreatic head. She has a hx pancreatic lesion in head that has been stable over the years on multiple imaging. MRI in 2022 normal pancreas. Denies EtOH. WARREN, IgG4, TG normal during earlier admisison
11/15/22 CT AP- Possible pancreatic head mass vs progressed pancreatic fatty infiltration 1.9cm, similar findings present back to 2008, but more prominent on current study.
02/12/23 MRI- Mild EHDD/IHDD expected post telma, stable to minimally increased. No pancreatic mass
03/17/23 CT AP- Subtle low attenuation at level of head of pancreas similar to prior. Stable mild IHDD and IHDD s/p telma
01/17/25 CT AP- Acute interstitial edematous pancreatitis. Moderate/severe IHDD. Mild EHDD. Prior telma
02/01/25 CT AP- Significant decrease in changes of acute pancreatitis. No focal fluid collection. Mild IHDD likely sequela from prior telma.
02/10/25 CT AP- Recent history of acute pancreatitis with minimal ill-defined hypodensity seen in pancreatic head, cannot exclude some residual minor/recurrent changes of acute pancreatitis or developing tiny pseudocyst.
02/12/25- MR abd - Mild intrahepatic and extrahepatic biliary dilatation. No choledocholithiasis. Previous cholecystectomy. Mild pancreatic atrophy. Mod chronic b/l renal disease. diverticulosis, DDD, consolidation both lower lobes,adrenal
adenoma. sm HH
02/12/25- CT chest PE limited with motion, no PE, consider ECG gating, trace amount pleural fluid b/l, atelectasis vs PNA
Impression:
Epigastric pain
Fever. 103.1 on 02/10, afebrile since then
PNA vs atelctasis per CT Chest
Elevated LFTs after admission
Recent admission for pancreatitis
S/P telma
Hx stable pancreatic head lesion and IHDD/EHDD
hypokalemia
PLAN:
etiology of fever unclear MRI with mild duct dilation and panc atrophy but no stone, collection or necrosis on MRI, CT with possible PNA, blood cx neg
remains on antibiotics
remains afebrile and normal WBC and improved LFT's -- still with fatigue
low residue diet
replete K per medical team
Subjective
Subjective
Date of Service: February 13, 2025
low residue diet, no stools feeling fatigue but no further fever and WBC's improved
Objective
Data Reviewed
Laboratory Data:
Laboratory Results
02/13/25 07:37
02/13/25 07:37
Laboratory Results
Total Bilirubin 0.4 mg/dl (0.2-1.3) 02/13/25 07:37
AST 15 U/L (14-36) 02/13/25 07:37
ALT 41 U/L (0-35) H 02/13/25 07:37
Alkaline Phosphatase 83 U/L (38-126) 02/13/25 07:37
Lipase 85 U/L (23-300) 02/10/25 09:39
Vital Signs and I&O:
Vital Signs
Temp Pulse Resp BP Pulse Ox
97.6 F 67 20 135/65 93
02/13/25 08:02 02/13/25 08:02 02/13/25 08:02 02/13/25 08:02 02/13/25 08:02
I&O
02/12/25 02/13/25 02/14/25
06:59 06:59 06:59
Intake Total 1080 / 1080 1760 / 1760
Balance 1080 / 1080 1760 / 1760
Physical Exam
Physical Exam
HEENT: Anicteric and Moist mucous membranes
Cardiology: Normal Sinus Rhythm
Pulmonary: Clear
GI: Soft, Non Distended and Non Tender
Extremities: No Edema
Neuro: Non Focal
[2025-02-13] MEDS: MAXIPIME 2000 MG IV (11:38)
[2025-02-13] MEDS: STERILE WATER FOR INJECTION 10 ML IV (11:38)
[2025-02-13] MEDS: DILAUDID 0.5 MG IV (11:39)
[2025-02-13] MEDS: ZOFRAN 4 MG IV ×2 (14:37→21:37)
--- NOTE | 2025-02-13 15:08 | CM ---
Admission 01/17/25 to 01/20/25 for acute pancreatitis. Now with unresolved abdominal pain. Ongoing diagnostic testing to determine origin.
IV/cefepime, low residue diet. Discharge POC: TBD. Therapy working with patient to reach baseline prior to discharge.
[2025-02-13 15:32] VITALS: BP 142/73
[2025-02-13] MEDS: ROCEPHIN 2000 MG IV (18:04)
[2025-02-13] MEDS: STERILE WATER FOR INJECTION 20 ML IV (18:04)
[2025-02-13] MEDS: REMOVE LIDOCAINE PATCH 1 PATCH REMOVE (20:07)
[2025-02-13] MEDS: DESYREL PO ×2 (20:08→20:58)
[2025-02-13] MEDS: PRAVACHOL 40 MG PO (20:24)
[2025-02-13] MEDS: VIBRAMYCIN 100 MG PO (20:24)
[2025-02-13] MEDS: SENOKOT-S PO ×2 (20:24→20:56)
[2025-02-13] MEDS: MIRALAX 17 GRAMS PO (21:21)
[2025-02-13 23:12] VITALS: BP 104/66
[2025-02-13] MEDS: DESYREL 75 MG PO (23:18)
[2025-02-14 07:37] VITALS: BP 143/68
[2025-02-14] MEDS: LIDOCAINE 4% PATCH 1 PATCH TOPICAL (08:21)
[2025-02-14] MEDS: HEPARIN SC ×3 (08:21→19:38)
[2025-02-14] MEDS: PROTONIX IV 40 MG IV ×2 (08:22→19:38)
[2025-02-14] MEDS: NSS (PRESERVATIVE FREE) 10 ML IV ×2 (08:22→19:38)
[2025-02-14] MEDS: PROCARDIA XL (EXTENDED RELEASE) 60 MG PO ×2 (08:22→19:38)
[2025-02-14] MEDS: VIBRAMYCIN 100 MG PO ×2 (08:23→19:39)
[2025-02-14] MEDS: SENOKOT-S 1 TABLET PO ×2 (08:23→19:39)
--- NOTE | 2025-02-14 08:32 | W.PN.HOSP.TC ---
Addendum entered and electronically signed by Mena Weiss MD 02/14/25 14:53:
Seen and examined the patient. Agree with the plan formulated by the resident. See changes in my documentation
74-year-old female presented with epigastric and abdominal pain. She was recently admitted with pancreatitis from 01/17/2025 to 01/20/2025. She developed a fever of 103. Urinalysis showed UTI. Next morning she had pleurisy x-ray showed possible
pneumonia.
CT abdomen and pelvis with IV contrast on 02/02/2025 and colonic diverticulosis, most prominent in sigmoid without inflammatory changes. No obstruction or free air. Recent history of acute pancreatitis with minimal ill-defined hypodensity seen in
the pancreatic head in comparison with the prior CT. Cannot exclude residual minor/recurrent changes of acute pancreatitis or developing tiny pseudocyst. Symmetrical renal excretion. Small bilateral simple renal cysts. Prior cholecystectomy
appendectomy and hysterectomy. Soft tissue of the true pelvis including urinary bladder significantly obscured
CT of the chest PE study-02/12/2025-no PE. Trace amount of pleural fluid bilaterally. Patchy parenchymal opacity within the posterior aspect of the both lungs atelectasis/pneumonia
MRI/MRCP-mild intrahepatic and extrahepatic biliary dilatation. No evidence of choledocholithiasis. Previous cholecystectomy. Mild diffuse parenchymal pancreatic atrophy. Moderate chronic bilateral renal disease. 1.1 cm left adrenal adenoma.
Small hiatal hernia. Moderate diverticulosis of the sigmoid colon. Severe multilevel lumbar DDD. Mild airspace consolidation in the basal segments of both lower lobes.
Echo 02/02/2024-LV EF is normal 60%. Normal LV size, wall thickness and systolic function. No regional wall motion abnormalities.
Patient states that she has mild pain in the left lower quadrant
On examination patient is awake alert and oriented
Cardiovascular system S1-S2 appreciated
Abdomen mild epigastric and left lower quadrant discomfort
No pedal edema
# Sepsis
Possibly pneumonia vs viral illness
Urinalysis noted-urine culture contaminated
COVID and influenza negative
Blood cultures negative so far
No clear intra-abdominal source
Continue cefepime and metronidazole
# Severe abdominal pain on admission
Recent history of pancreatitis
Elevated LFTs -? LFTs are improving
LFTs improving ? Passed a stone versus pancreatitis
WARREN and IgG4 negative, triglycerides 69. No gallstones on imaging
Continue symptomatic treatment with PPI, antiemetics, pain management
Patient had an episode of dysphagia last night. Diet was changed to full liquid and back to her low residue now.
Plan for endoscopy tomorrow.
Left lower quadrant pain could be also secondary to constipation-treat constipation
# Hypokalemia-replace
# Hypomagnesemia-replace
# Acute hypoxic respiratory insufficiency-off oxygen now
# Recent admission for pancreatitis from 01/17/2025 to 01/20/2025
MRI with mild diffuse pancreatic parenchymal atrophy
# Hypertension-continue nifedipine
# Hyperlipidemia-on statin
# CKD stage III
# Headache
# Diverticulosis
# Severe multilevel lumbar DDD
# Hiatal hernia
# History of parathyroidectomy
# Adrenal adenoma-outpatient follow-up
# Anxiety and depression-continue trazodone
# Ex-smoker
# DVT prophylaxis- subcutaneous heparin
# Full code
Discussed with nursing
Discussed with GI
Part of this note was created using voice recognition system. Occasional wrong word or��sound alike� substitutions may have inadvertently occurred due to the inherent limitations of voice recognition software. If noted kindly bring it to my
attention for correction.
Original Note:
Today's Communication/Plan
-
Continue doxycycline and ceftriaxone
N.p.o. after midnight for EGD tomorrow
Assessment / Plan
Assessment / Plan
Impression:
74-year-old female with past medical history of pancreatitis, hypertension, hyperlipidemia, CKD 3, anxiety, hypertension with recent admission for pancreatitis from 01/17 to 01/20 presented to the ED for severe epigastric abdominal pain. Lipase was
within normal limits and imaging unclear whether there is an acute recurrence of her pancreatitis. She was admitted for severe abdominal pain likely secondary to GERD/acute gastritis and provided fluids, Dilaudid and started on Protonix twice
daily. In the afternoon, she developed a fever of 103 and a UA was done concerning for UTI. She was started on ceftriaxone. The next morning, she endorsed pleurisy and crackles were auscultated on physical exam. Chest x-ray was ordered to
evaluate for possible pneumonia. Due to high fever and severe epigastric abdominal pain with no clear cause as of yet, there is clinical concern for ascending cholangitis. Ceftriaxone was switched to cefepime and metronidazole and GI was
consulted. GI recommended MRCP to evaluate for possible CBD to explain fever however no acute cause for pain was found. Workup for atypical abdominal pain from chest etiology was started. EKG was nonischemic and troponin were negative. D-dimer
slightly elevated at 1.[address] PE was done. CT did not reveal any PE, however it was a poor study and radiology recommended repeat if high clinical suspicion for PE as they could not visualize the outer lobe vasculature. It did show
atelectasis and/or pneumonia. As there was no other clear cause for fever, switch patient to ceftriaxone and Doxy to cover pneumonia. Patient did start to complain of some dysphagia after being upgraded to low residue diet. With no other
explanation for the midepigastric pain, GI opted to do and endoscopy.
Imaging:
CT abdomen pelvis with IV contrast 02/10/2025:
Colonic diverticulosis, most prominent sigmoid, without gross accompanying inflammatory changes. No intestinal obstruction or free air.
Recent history of acute pancreatitis with minimal ill-defined hypodensity seen in the pancreatic head in comparison to recent prior CT, cannot exclude some residual minor/recurrent changes of acute pancreatitis or developing tiny pseudocyst.
Symmetric renal excretion. Small bilateral simple renal cysts as well as additional subcentimeter low-attenuation renal lesions too small to characterize.
Prior cholecystectomy, appendectomy and hysterectomy.
Soft tissues of the true pelvis including the urinary bladder significantly obscured by beam hardening artifact from bilateral hip arthroplasties.
Abdomen pelvis CT with IV contrast 02/01/2025:
Significant decrease in changes of acute pancreatitis in the interval since recent prior CT. No well-formed abnormal focal peripancreatic fluid collection.
Sigmoid diverticulosis significantly obscured by beam hardening artifact from bilateral hip arthroplasties. No intestinal obstruction or free air.
Simple renal cysts as well as additional bilateral subcentimeter low-attenuation renal lesions too small to characterize.
Prior cholecystectomy, appendectomy and hysterectomy. Mild intrahepatic biliary tract dilatation most likely the sequela of prior cholecystectomy. Suggest correlation with LFTs.
Abdominal MRI with and without contrast 02/12/2025:
IMPRESSION:
1. Mild intrahepatic and extrahepatic biliary dilatation.
2. No evidence for choledocholithiasis.
3. Previous cholecystectomy.
4. Mild diffuse pancreatic parenchymal atrophy.
5. Moderate chronic bilateral renal disease.
6. 1.1 cm left adrenal adenoma.
7. Small hiatal hernia.
8. Moderate diverticulosis in the sigmoid colon.
9. Severe multilevel lumbar discogenic degenerative disease.
10. Mild airspace consolidation in the basilar segments of both lower lobes.
Chest CT PE 02/12/2025:
There is significant motion artifact, which limits evaluation of the pulmonary arteries.
No evidence of pulmonary embolism to the lobar branching level.
If there are persistent clinical symptoms highly suggestive of pulmonary embolism, consideration could be given to a repeat examination. Perhaps ECG gating would improve the degree of motion artifact.
Trace amount of pleural fluid bilaterally.
Patchy parenchymal opacity within the posterior aspect of both lower lobes of the lungs, with differential considerations of atelectasis and/or pneumonia.
Plan:
Sepsis secondary to pneumonia with associated organ dysfunction of acute hypoxemic respiratory failure
-- Temp 103.1 02/10/25, WBC 15.3 now 13.3, placed on 2 L overnight for oxygen saturations 88-89 - weaned off O2
-- UA reveals 11-15 WBC, moderate bacteria plus leukocyte esterase -urine culture contaminated
-- Covid, flu both negative. Chest x-ray negative
-- Blood cultures prelim 48 hrs negative
-- Higher clinical concern for sepsis secondary to intra-abdominal process given she has severe epigastric pain - MRI revealed no acute abdominal etiology
-- Ceftriaxone switched to cefepime and metronidazole to cover possible GI etiology
-- WBC wln, remains afebrile - unlikely to be caused by UTI but no other clear source. CT revealed atelectasis and/or possible pneumonia - downgrade to ceftriaxone and doxy
Acute hypoxemic respiratory failure
Pleurisy
Pneumonia?
--placed on 2 L overnight on 02/11/25 for oxygen saturations 88-89 - weaned off O2
-- Pleuritic chest pain remains
-- As MRI did not reveal any abdominal explanation for her pain, chest etiology work up started
-- EKG non-ischemic, troponin <0.012, D-dimer 1.27
-- CT revealed no PE, however poor study due to heavy breathing by patient in CT - radiology recommended repeat if high clinical suspicion as unable to visualize outer vasculature
-- No DVTs in bilateral lower extremity ultrasound
-- Possible atelectasis vs pneumonia mentioned in the report - treating for pneumonia per above
-- Exercise pulse Ox test today as nursing stating patient is still de-satting with movement - patient refused because she was feeling too tired
-- If O2 drops during assessment, may consider repeat chest CT to evaluate for small PE
Severe abdominal pain
Recent episode of acute pancreatitis
Elevated LFTs
Dysphagia
-- Differentials include recurrence of acute pancreatitis, GERD, acute gastritis, ascending cholangitis
-- Lipase within normal limits and imaging not convincing of acute pancreatitis making it less likely. As pain is continuing with PPI and no diarrhea, this makes GERD and acute gastritis less likely.
-- For her last episode of pancreatics, no recent alcohol use, WARREN and IgG4 negative, triglycerides 69, no gallstones on imaging, no changes in recent meds - recommended to follow-up with GI outpatient for further abdominal imaging
-- AST increased from 18 ->79 and ALT 15 > 101 - now wnl
-- Continue pantoprazole 40 twice daily
-- Zofran
-- Dilaudid
-- MRCP revealed no stone - cardiac work up for atypical causes of upper GI pain per above
-- Upper endoscopy per GI tomorrow due to patients complaint of dysphagia
-- NPO after midnight
-- Appreciate GI
Hypokalemia
-- 3.4 - replete with IV K. Patient verbalized agreement to IV K understanding allergy listed in the chart with GI upset.
Headache
-- 9 out of 10 in severity according to patient, not associated with neck stiffness or pain 02/11/25
-- Neurologically intact
-- Patient states she thinks she thinks its likely due to poor p.o. intake over the last few days
-- She does have morphine listed in her drug allergies and she received a dose yesterday
-- Improved
Essential hypertension
-- Continue nifedipine with hold parameters
Hyperlipidemia
-- Continue statin
CKD 3A
-- Monitor cr
Anxiety/depression
-- Continue trazodone
Pancreatic head mass - not seen on MRI
Full code
DVT heparin
Low fiber diet
Anticipated Discharge: 24 - 48 hours
Subjective/Interval History
-
Date of Service: February 14, 2025
Nausea and vomiting overnight. Patient stated yesterday while trying to eat something, she felt like the food got stuck in her upper abdomen and cause significant pain. She received 0.5 Dilaudid overnight. Abdominal pain ongoing.
Objective Data
-
Labs:
Laboratory Results
02/14/25
08:13
WBC Pending
Hgb Pending
Hct Pending
Plt Count Pending
Sodium Pending
Potassium Pending
Chloride Pending
Carbon Dioxide Pending
BUN Pending
Creatinine Pending
Glucose Pending
Calcium Pending
Total Bilirubin Pending
AST Pending
ALT Pending
Alkaline Phosphatase Pending
Vital Signs:
Vital Signs
Temp Pulse Resp BP Pulse Ox
98.8 F 67 17 143/68 95
02/14/25 07:37 02/14/25 07:37 02/14/25 07:37 02/14/25 07:37 02/14/25 07:37
I&O
02/13/25 02/14/25 02/15/25
06:59 06:59 06:59
Intake Total 1760 / 1760 480 / 480
Balance 1760 / 1760 480 / 480
Review of Systems
-
History Source: Patient
Respiratory: Reports Pleurisy
Cardiac: Reports No Symptoms
Abdomen/GI: Reports Abdominal Pain, Nausea, Vomiting and Constipated
Genitourinary: Reports No Symptoms
Skin: Reports No Symptoms
Neuro: Reports No Symptoms
Physical Exam
-
General: Appears in Distress, Pain and Obese
HEENT: Normocephalic
Respiratory: Crackles (Bilateral bases -improving)
Cardiac: Regular Rhythm and S1/S2
GI: Soft, Nondistended, Normal Bowel Sounds and Tender (Midepigastric, left lower quadrant)
Musculoskeletal: No Edema
Skin: Warm and Dry
Neuro: AO x 3
Psych: Calm
[2025-02-14 08:43] LABS: Hematocrit 38.3 % (37.0-47.0); Hemoglobin 13.2 g/dL (12.0-16.0); Mean Corp Hgb Conc. 34.5 g/dL (33.0-37.0); Mean Corpuscular Volume 86.3 fL (81.0-99.0); Nucleated Red Blood Cells % 0 %; Platelet Count 194 10^3/uL (130-400); Red Cell Dist. Width 13.0 % (11.5-14.5)
[2025-02-14 09:05] LABS: C-Reactive Protein 45.60 mg/L (0.0-10.00)
[2025-02-14 09:11] LABS: ALT (SGPT) 37 U/L (0-35); AST (SGOT) 19 U/L (14-36); Albumin 3.7 g/dl (3.5-5.0); Alkaline Phosphatase 99 U/L (38-126); Blood Urea Nitrogen 10 mg/dl (7-17); Calcium 8.9 mg/dl (8.4-10.2); Carbon Dioxide 26 mmol/L (22-30); Chloride 104 mmol/L (98-107); Estimated Creatinine Clearance 53 ml/min; Glucose 92 mg/dl (70-99); Potassium 3.4 mmol/L (3.5-5.1); Sodium 139 mmol/L (135-145); Total Protein 6.3 g/dl (6.3-8.2); eGFR 58.75
--- NOTE | 2025-02-14 10:55 | W.PN.GI.CBS2 ---
Addendum entered and electronically signed by Denny Orr MD 02/14/25 15:22:
I saw and examined the patient.
The PUBLIC INFORMATION SPECIALIST or PA's note was reviewed and I agree with the note.
Comment: 74-year-old female who follows with me outpatient with recent admission for pancreatitis early January now presenting with epigastric pain that is similar to her pancreatitis. This admission, there is no evidence of pancreatitis on CT or
MRI and normal lipase. She also had a fever to 103. Denies any sick contacts, recent travel. She has some mild nausea, cough, shortness of breath. She does also elicit some dysphagia which has been present since her first admission in early
January. She last had an upper endoscopy done in 2022 which was also done for epigastric pain. Back in 2022 when she had the epigastric pain, she also had weight loss, constipation. She has a known tremor when she gets stressed due to her
anxiety and she was tremulous today as well. Primary team is working up non-GI etiologies for her fever. There is also concern of possible UTI, pleurisy with possible pneumonia although CT did not show pneumonia. Could also be viral. I do think
she needs an upper endoscopy given her dysphagia. I d/w Dr. Weiss today - ok to proceed with EGD tomorrow. I discussed with patient endoscopy risk, alternatives, benefits reviewed including but not limited to risk of bleeding, infection,
perforation, patient is agreeable. Further recommendations pending upper endoscopy tomorrow. Will need outpatient endoscopic ultrasound with Dr. Pang with recent pancreatitis without clear etiology.
Original Note:
Today's Communication / Plan
-
etiology of fever unclear MRI with mild duct dilation and panc atrophy but no stone, collection or necrosis on MRI, CT with possible PNA, blood cx neg vs possible viral syndrome
some vomiting 02/13 but now tolerating full liquid diet will trial recurrent advancement
abdominal pain improving
remains afebrile and normal WBC and improved LFT's
no complaints of dysphagia
remains on antibiotics
will review for EGD with Dr. Orr as improving
replete K per medical team as still low
t/c OP EUS with Dr. Pang with recent pancreatitis without clear etiology
support given with difficulty sleeping with roommate, anxiety issue -- support given, reviewed with nursing staff
reviewed with Dr. Weiss
Assessment / Plan
-
Summary: 74yo female presents with epigastric pain x 1 day similar to pain during recent admission for pancreatitis. Also fever 103.1. LFTs normal on admission but bumped up to AST 79, ALT 101. During recent admission early January, CT showed
pancreatitis and dilated bile ducts, post cholecystectomy. LFTs mildly elevated AST 80, ALT 38 during that admission. After d/c, pain free until . Repeat CT shows pancreatitis changes almost resolved, minimal ill-defined hypodensity
in pancreatic head. She has a hx pancreatic lesion in head that has been stable over the years on multiple imaging. MRI in 2022 normal pancreas. Denies EtOH. WARREN, IgG4, TG normal during earlier admisison
11/15/22 CT AP- Possible pancreatic head mass vs progressed pancreatic fatty infiltration 1.9cm, similar findings present back to 2008, but more prominent on current study.
02/12/23 MRI- Mild EHDD/IHDD expected post telma, stable to minimally increased. No pancreatic mass
03/17/23 CT AP- Subtle low attenuation at level of head of pancreas similar to prior. Stable mild IHDD and IHDD s/p telma
01/17/25 CT AP- Acute interstitial edematous pancreatitis. Moderate/severe IHDD. Mild EHDD. Prior telma
02/01/25 CT AP- Significant decrease in changes of acute pancreatitis. No focal fluid collection. Mild IHDD likely sequela from prior telma.
02/10/25 CT AP- Recent history of acute pancreatitis with minimal ill-defined hypodensity seen in pancreatic head, cannot exclude some residual minor/recurrent changes of acute pancreatitis or developing tiny pseudocyst.
02/12/25- MR abd - Mild intrahepatic and extrahepatic biliary dilatation. No choledocholithiasis. Previous cholecystectomy. Mild pancreatic atrophy. Mod chronic b/l renal disease. diverticulosis, DDD, consolidation both lower lobes,adrenal
adenoma. sm HH
02/12/25- CT chest PE limited with motion, no PE, consider ECG gating, trace amount pleural fluid b/l, atelectasis vs PNA
Impression:
Epigastric pain
Fever. 103.1 on 02/10, afebrile since then
PNA vs atelctasis per CT Chest
Elevated LFTs after admission
elevated CRP
Recent admission for pancreatitis
S/P telma
Hx stable pancreatic head lesion and IHDD/EHDD
hypokalemia
tremor with anxiety
PLAN:
etiology of fever unclear MRI with mild duct dilation and panc atrophy but no stone, collection or necrosis on MRI, CT with possible PNA, blood cx neg vs possible viral syndrome
some vomiting 02/13 but now tolerating full liquid diet will trial recurrent advancement
abdominal pain improving
remains afebrile and normal WBC and improved LFT's
no complaints of dysphagia
remains on antibiotics
will review for EGD with Dr. Orr as improving
replete K per medical team as still low
t/c OP EUS with Dr. Pang with recent pancreatitis without clear etiology
support given with difficulty sleeping with roommate, anxiety issue -- support given, reviewed with nursing staff
Subjective
Subjective
Date of Service: February 14, 2025
full liquid diet as had vomiting 02/13 , no further vomiting abdominal pain with improvement. Pt states she has not been sleeping well, no stools recorded
Objective
Data Reviewed
Laboratory Data:
Laboratory Results
02/14/25 08:13
02/14/25 08:13
Laboratory Results
Total Bilirubin 0.4 mg/dl (0.2-1.3) 02/14/25 08:13
AST 19 U/L (14-36) 02/14/25 08:13
ALT 37 U/L (0-35) H 02/14/25 08:13
Alkaline Phosphatase 99 U/L (38-126) 02/14/25 08:13
Lipase 85 U/L (23-300) 02/10/25 09:39
Vital Signs and I&O:
Vital Signs
Temp Pulse Resp BP Pulse Ox
98.8 F 67 17 143/68 95
02/14/25 07:37 02/14/25 07:37 02/14/25 07:37 02/14/25 07:37 02/14/25 08:40
I&O
02/13/25 02/14/25 02/15/25
06:59 06:59 06:59
Intake Total 1760 / 1760 480 / 480
Balance 1760 / 1760 480 / 480
Physical Exam
Physical Exam
HEENT: Anicteric and Moist mucous membranes
Cardiology: Normal Sinus Rhythm
Pulmonary: Clear
GI: Soft, Non Distended and Tender (minimal epigastric tenderness )
Extremities: No Edema
Neuro: Non Focal
[2025-02-14] MEDS: CITROMA 300 ML PO (12:23)
[2025-02-14] MEDS: KCL 160 MEQ IV (12:59)
[2025-02-14 13:28] LABS: Magnesium 1.5 mg/dl (1.6-2.3)
[2025-02-14 14:47] VITALS: BP 146/88
[2025-02-14] MEDS: MAGNESIUM SULFATE 100 IV (15:01)
--- NOTE | 2025-02-14 16:49 | PTCARENOTE ---
Called into pt's room, pt now has a red, blotchy-like rash on her RT forarm and both lower legs, calf/knee area. Dr Parker and Dr Weiss made aware and will see pt. Pt denies itchiness.
[2025-02-14] MEDS: ROCEPHIN 2000 MG IV (17:19)
[2025-02-14] MEDS: BENADRYL 25 MG IV (17:20)
[2025-02-14] MEDS: STERILE WATER FOR INJECTION 20 ML IV (17:20)
[2025-02-14] MEDS: REMOVE LIDOCAINE PATCH 1 PATCH REMOVE (19:39)
[2025-02-14] MEDS: PRAVACHOL 40 MG PO (22:38)
[2025-02-14] MEDS: DESYREL 75 MG PO (22:38)
[2025-02-14 22:54] VITALS: BP 156/69
[2025-02-15 07:20] VITALS: BP 149/75
[2025-02-15 07:36] LABS: Hematocrit 39.4 % (37.0-47.0); Hemoglobin 13.7 g/dL (12.0-16.0); Mean Corp Hgb Conc. 34.8 g/dL (33.0-37.0); Mean Corpuscular Volume 87.0 fL (81.0-99.0); Nucleated Red Blood Cells % 0 %; Platelet Count 207 10^3/uL (130-400); Red Cell Dist. Width 13.4 % (11.5-14.5)
[2025-02-15] MEDS: PROTONIX IV 40 MG IV (07:54)
[2025-02-15] MEDS: LIDOCAINE 4% PATCH 1 PATCH TOPICAL (07:54)
[2025-02-15] MEDS: NSS (PRESERVATIVE FREE) 10 ML IV (07:54)
[2025-02-15] MEDS: SENOKOT-S PO (07:55)
[2025-02-15] MEDS: HEPARIN SC (07:57)
[2025-02-15 08:02] LABS: ALT (SGPT) 34 U/L (0-35); AST (SGOT) 24 U/L (14-36); Albumin 3.8 g/dl (3.5-5.0); Alkaline Phosphatase 90 U/L (38-126); Blood Urea Nitrogen 19 mg/dl (7-17); Calcium 9.1 mg/dl (8.4-10.2); Carbon Dioxide 22 mmol/L (22-30); Chloride 108 mmol/L (98-107); Estimated Creatinine Clearance 44 ml/min; Glucose 98 mg/dl (70-99); Magnesium 2.3 mg/dl (1.6-2.3); Potassium 3.3 mmol/L (3.5-5.1); Sodium 140 mmol/L (135-145); Total Protein 6.3 g/dl (6.3-8.2); eGFR 47.21
--- NOTE | 2025-02-15 08:10 | W.PN.HOSP.TC ---
Addendum entered and electronically signed by Mena Weiss MD 02/15/25 14:09:
Seen and examined the patient. Agree with the plan formulated by the resident. See changes in my documentation
74-year-old female presented with epigastric and abdominal pain. She was recently admitted with pancreatitis from 01/17/2025 to 01/20/2025. She developed a fever of 103. Urinalysis showed UTI. Next morning she had pleurisy x-ray showed possible
pneumonia.
CT abdomen and pelvis with IV contrast on 02/02/2025 and colonic diverticulosis, most prominent in sigmoid without inflammatory changes. No obstruction or free air. Recent history of acute pancreatitis with minimal ill-defined hypodensity seen in
the pancreatic head in comparison with the prior CT. Cannot exclude residual minor/recurrent changes of acute pancreatitis or developing tiny pseudocyst. Symmetrical renal excretion. Small bilateral simple renal cysts. Prior cholecystectomy
appendectomy and hysterectomy. Soft tissue of the true pelvis including urinary bladder significantly obscured
CT of the chest PE study-02/12/2025-no PE. Trace amount of pleural fluid bilaterally. Patchy parenchymal opacity within the posterior aspect of the both lungs atelectasis/pneumonia
MRI/MRCP-mild intrahepatic and extrahepatic biliary dilatation. No evidence of choledocholithiasis. Previous cholecystectomy. Mild diffuse parenchymal pancreatic atrophy. Moderate chronic bilateral renal disease. 1.1 cm left adrenal adenoma.
Small hiatal hernia. Moderate diverticulosis of the sigmoid colon. Severe multilevel lumbar DDD. Mild airspace consolidation in the basal segments of both lower lobes.
Echo 02/02/2024-LV EF is normal 60%. Normal LV size, wall thickness and systolic function. No regional wall motion abnormalities.
Pain is better. Patient was ambulating In the halls. Did not require any Oxygen
On examination patient is awake alert and oriented
Cardiovascular system S1-S2 appreciated
Abdomen mild epigastric and left lower quadrant discomfort
No pedal edema
EGD-normal esophagus, esophageal ulcers, biopsied, mucosal nodule in the esophagus biopsied, normal stomach, few gastric polyps, normal examined duodenum
# Sepsis
Possibly pneumonia vs viral illness
Urinalysis noted-urine culture contaminated
COVID and influenza negative
Blood cultures negative so far
No clear intra-abdominal source
AB changed to PO for discharge to complete the course.
# Severe abdominal pain on admission
Recent history of pancreatitis
Elevated LFTs -? LFTs are improving
LFTs improving ? Passed a stone versus pancreatitis
WARREN and IgG4 negative, triglycerides 69. No gallstones on imaging
Patient had several bowel movements
She has also has the ulcer, which is causing the pain
# Hypokalemia-replace
# Hypomagnesemia-replaced
# Acute hypoxic respiratory insufficiency-off oxygen now
# Recent admission for pancreatitis from 01/17/2025 to 01/20/2025
MRI with mild diffuse pancreatic parenchymal atrophy
Fecal fat pending. If it is positive then may need pancreatic enzyme supplementation
# Hypertension-continue nifedipine
# Hyperlipidemia-on statin
# CKD stage III
# Headache
# Diverticulosis
# Severe multilevel lumbar DDD
# Hiatal hernia
# History of parathyroidectomy
# Adrenal adenoma-outpatient follow-up
# Anxiety and depression-continue trazodone
# Ex-smoker
# DVT prophylaxis- subcutaneous heparin
# Full code
Discussed with nursing
Discussed with GI
Discussed with respiratory
Follow-up discussed with the patient
More than 30 minutes spent in discharge including
Final examination of the patient
Summarizing hospital stay
Instructions for continuing care to all relevant caregivers
Preparation of discharge records, prescriptions, and referral forms
Part of this note was created using voice recognition system. Occasional wrong word or��sound alike� substitutions may have inadvertently occurred due to the inherent limitations of voice recognition software. If noted kindly bring it to my
attention for correction.
Original Note:
Today's Communication/Plan
-
Discharged with an additional 4 days of doxycycline and pantoprazole
Follow-up with GI for biopsy results
Assessment / Plan
Assessment / Plan
Impression:
74-year-old female with past medical history of pancreatitis, hypertension, hyperlipidemia, CKD 3, anxiety, hypertension with recent admission for pancreatitis from 01/17 to 01/20 presented to the ED for severe epigastric abdominal pain. Lipase was
within normal limits and imaging unclear whether there is an acute recurrence of her pancreatitis. She was admitted for severe abdominal pain likely secondary to GERD/acute gastritis and provided fluids, Dilaudid and started on Protonix twice
daily. In the afternoon, she developed a fever of 103 and a UA was done concerning for UTI. She was started on ceftriaxone. The next morning, she endorsed pleurisy and crackles were auscultated on physical exam. Chest x-ray was ordered to
evaluate for possible pneumonia. Due to high fever and severe epigastric abdominal pain with no clear cause as of yet, there is clinical concern for ascending cholangitis. Ceftriaxone was switched to cefepime and metronidazole and GI was
consulted. GI recommended MRCP to evaluate for possible CBD to explain fever however no acute cause for pain was found. Workup for atypical abdominal pain from chest etiology was started. EKG was nonischemic and troponin were negative. D-dimer
slightly elevated at 1.[address] PE was done. CT did not reveal any PE, however it was a poor study and radiology recommended repeat if high clinical suspicion for PE as they could not visualize the outer lobe vasculature. It did show
atelectasis and/or pneumonia. As there was no other clear cause for fever, switch patient to ceftriaxone and Doxy to cover pneumonia. Patient did start to complain of some dysphagia after being upgraded to low residue diet. With no other
explanation for the midepigastric pain, GI opted to do and endoscopy.
Imaging:
CT abdomen pelvis with IV contrast 02/10/2025:
Colonic diverticulosis, most prominent sigmoid, without gross accompanying inflammatory changes. No intestinal obstruction or free air.
Recent history of acute pancreatitis with minimal ill-defined hypodensity seen in the pancreatic head in comparison to recent prior CT, cannot exclude some residual minor/recurrent changes of acute pancreatitis or developing tiny pseudocyst.
Symmetric renal excretion. Small bilateral simple renal cysts as well as additional subcentimeter low-attenuation renal lesions too small to characterize.
Prior cholecystectomy, appendectomy and hysterectomy.
Soft tissues of the true pelvis including the urinary bladder significantly obscured by beam hardening artifact from bilateral hip arthroplasties.
Abdomen pelvis CT with IV contrast 02/01/2025:
Significant decrease in changes of acute pancreatitis in the interval since recent prior CT. No well-formed abnormal focal peripancreatic fluid collection.
Sigmoid diverticulosis significantly obscured by beam hardening artifact from bilateral hip arthroplasties. No intestinal obstruction or free air.
Simple renal cysts as well as additional bilateral subcentimeter low-attenuation renal lesions too small to characterize.
Prior cholecystectomy, appendectomy and hysterectomy. Mild intrahepatic biliary tract dilatation most likely the sequela of prior cholecystectomy. Suggest correlation with LFTs.
Abdominal MRI with and without contrast 02/12/2025:
IMPRESSION:
1. Mild intrahepatic and extrahepatic biliary dilatation.
2. No evidence for choledocholithiasis.
3. Previous cholecystectomy.
4. Mild diffuse pancreatic parenchymal atrophy.
5. Moderate chronic bilateral renal disease.
6. 1.1 cm left adrenal adenoma.
7. Small hiatal hernia.
8. Moderate diverticulosis in the sigmoid colon.
9. Severe multilevel lumbar discogenic degenerative disease.
10. Mild airspace consolidation in the basilar segments of both lower lobes.
Chest CT PE 02/12/2025:
There is significant motion artifact, which limits evaluation of the pulmonary arteries.
No evidence of pulmonary embolism to the lobar branching level.
If there are persistent clinical symptoms highly suggestive of pulmonary embolism, consideration could be given to a repeat examination. Perhaps ECG gating would improve the degree of motion artifact.
Trace amount of pleural fluid bilaterally.
Patchy parenchymal opacity within the posterior aspect of both lower lobes of the lungs, with differential considerations of atelectasis and/or pneumonia.
Endoscopy 02/15/2025:
- Normal esophagus.
- Esophageal ulcers. Biopsied.
- Mucosal nodule found in the esophagus. Biopsied.
- Normal stomach.
- A few gastric polyps.
- Normal examined duodenum.
Plan:
Sepsis secondary to pneumonia with associated organ dysfunction of acute hypoxemic respiratory failure
-- Temp 103.1 02/10/25, WBC 15.3 now 13.3, placed on 2 L overnight for oxygen saturations 88-89 - weaned off O2
-- UA reveals 11-15 WBC, moderate bacteria plus leukocyte esterase -urine culture contaminated
-- Covid, flu both negative. Chest x-ray negative
-- Blood cultures prelim 48 hrs negative
-- Higher clinical concern for sepsis secondary to intra-abdominal process given she has severe epigastric pain - MRI revealed no acute abdominal etiology
-- Ceftriaxone switched to cefepime and metronidazole to cover possible GI etiology -> Ceftriaxone and doxy to cover pneumonia
-- WBC wln, remains afebrile - unlikely to be caused by UTI but no other clear source. CT revealed atelectasis and/or possible pneumonia - downgrade to ceftriaxone and doxy - day 6 of antibiotics
-- Discharged on 4 days of doxycycline to complete a 10-day course of antibiotics
Acute hypoxemic respiratory failure
Pleurisy
Pneumonia
--placed on 2 L overnight on 02/11/25 for oxygen saturations 88-89 - weaned off O2
-- Pleuritic chest pain remains
-- As MRI did not reveal any abdominal explanation for her pain, chest etiology work up started
-- EKG non-ischemic, troponin <0.012, D-dimer 1.27
-- CT revealed no PE, however atelectasis versus pneumonia noted
-- No DVTs in bilateral lower extremity ultrasound
-- Patient passed exercise oxygen assessment
-- Discharged on 4 days of doxycycline to complete a 10-day course of antibiotics
Severe abdominal pain
Recent episode of acute pancreatitis
Elevated LFTs
Dysphagia
-- Differentials include recurrence of acute pancreatitis, GERD, acute gastritis, ascending cholangitis
-- Lipase within normal limits and imaging not convincing of acute pancreatitis making it less likely. As pain is continuing with PPI and no diarrhea, this makes GERD and acute gastritis less likely.
-- For her last episode of pancreatics, no recent alcohol use, WARREN and IgG4 negative, triglycerides 69, no gallstones on imaging, no changes in recent meds - recommended to follow-up with GI outpatient for further abdominal imaging
-- AST increased from 18 ->79 and ALT 15 > 101 - now wnl
-- Continue pantoprazole 40 twice daily
-- Zofran
-- Dilaudid
-- MRCP revealed no stone - cardiac work up for atypical causes of upper GI pain per above
-- Upper endoscopy today
-- Endoscopy revealed esophageal ulcer. A biopsy was taken. Continue pantoprazole twice daily and follow-up with outpatient GI.
-- Likely source of pain
-- Appreciate GI
Hypokalemia
-- 3.4 - replete with IV K. Patient verbalized agreement to IV K understanding allergy listed in the chart with GI upset.
Hypomagnesemia
-- Replete as needed
Rash
-- None itchy, non- painful erythematous macular rash with irregular boarders appeared on bilateral legs and left arm after magnesium infusion
-- She noticed a small similar patch yesterday on her left leg after the K infusion
-- Patient denied any SOB, fevers, chills.
-- Suspect allergic reaction to either K or Mag infusion
-- Benadryl as needed - benefits outweigh risks at this time as patient had no symptoms other than visual rash.
Headache
-- 9 out of 10 in severity according to patient, not associated with neck stiffness or pain 02/11/25
-- Neurologically intact
-- Patient states she thinks she thinks its likely due to poor p.o. intake over the last few days
-- She does have morphine listed in her drug allergies and she received a dose yesterday
-- Improved
Essential hypertension
-- Continue nifedipine with hold parameters
Hyperlipidemia
-- Continue statin
CKD 3A
-- Monitor cr
Anxiety/depression
-- Continue trazodone
Pancreatic head mass - not seen on MRI
Full code
DVT heparin
Low fiber diet
Anticipated Discharge: Today
Subjective/Interval History
-
Date of Service: February 15, 2025
Abdominal pain improving. No nausea or vomiting overnight. Rash went away. Denies any itching or shortness of breath.
Objective Data
-
Labs:
Laboratory Results
02/15/25
07:08
WBC 8.3
Hgb 13.7
Hct 39.4
Plt Count 207
Sodium 140
Potassium 3.3 L
Chloride 108 H
Carbon Dioxide 22
BUN 19 H
Creatinine 1.2 H
Glucose 98
Calcium 9.1
Total Bilirubin 0.4
AST 24
ALT 34
Alkaline Phosphatase 90
Vital Signs:
Vital Signs
Temp Pulse Resp BP Pulse Ox
98.3 F 68 18 156/69 96
02/14/25 22:54 02/14/25 22:54 02/14/25 22:54 02/14/25 22:54 02/14/25 22:54
I&O
02/14/25 02/15/25 02/16/25
06:59 06:59 06:59
Intake Total 480 / 480 1140 / 1140
Balance 480 / 480 1140 / 1140
Review of Systems
-
History Source: Patient
Respiratory: Reports Pleurisy
Cardiac: Reports No Symptoms
Abdomen/GI: Reports Abdominal Pain
Genitourinary: Reports No Symptoms
Skin: Reports No Symptoms
Neuro: Reports No Symptoms
Allergy / Immunology: Reports No Symptoms
Physical Exam
-
General: No Apparent Distress and Comfortable
HEENT: Normocephalic
Respiratory: Crackles (Bilateral bases -improved from yesterday)
Cardiac: Regular Rhythm and S1/S2
GI: Soft, Nontender, Nondistended and Normal Bowel Sounds
Musculoskeletal: No Cyanosis and No Edema
Skin: Warm and Dry
Neuro: AO x 3
Psych: Calm
[2025-02-15 09:36] VITALS: BP 106/62
[2025-02-15 09:45] VITALS: BP 127/62
[2025-02-15 10:00] VITALS: BP 146/66
[2025-02-15] MEDS: PROCARDIA XL (EXTENDED RELEASE) 60 MG PO (10:49)
[2025-02-15] MEDS: VIBRAMYCIN 100 MG PO (10:49)
[2025-02-15] MEDS: KCL 270 MEQ IV (10:50)
--- NOTE | 2025-02-15 12:07 | CM ---
Met with pt bedside.
Possible D/C today after potassium IV gtt completed and lytes are rechecked.
Currently on O2; not on O2 at baseline. Respiratory to perform home O2 assessment today
PT rec HH. CM is set up pt for PT with [facility]. [facility] won't start for about a week. Pt is aware and agreeable.
Plan: Home with [facility] for PT and possibly home O2. Will follow
--- NOTE | 2025-02-15 12:22 | VNURNOTE ---
Addendum entered by Lili Dewitt RN 02/15/25 13:05:
Home 02 test reviewed, did not qualify for home 02. [facility] referral updated.
Original Note:
Home Health Liaison met with patient at bedside to discuss [facility] nurse/therapy, visits, schedule and homebound status. Patient is agreeable and understands that visits at home will be 2-3 x per week to assess and teach medical management. Patient
is aware that [facility] will contact them for start of care within a week after discharge from . Provided contact number for [facility]. Watching if qualifies for new home 02.
PM [facility] referral completed in [facility].
[2025-02-15 13:34] VITALS: PULSE 80; O2SAT 95
--- NOTE | 2025-02-15 13:53 | W.DCSUMMARY ---
Addendum entered and electronically signed by Mena Weiss MD 02/16/25 17:31:
Read, reviewed, and agree. See same day progress note for additional details.
Original Note:
Discharge Summary
Discharge Data
Date of Admission: 02/11/25
Date of Discharge: 02/15/25
-
Pending Results: Yes
Additional Pending Results:
Esophageal biopsy results
Hospital Course
Primary diagnosis:
Sepsis secondary to pneumonia associated with acute organ dysfunction of hypoxemic respiratory failure
Esophageal ulcer
Severe abdominal pain
Hypokalemia
Hypomagnesemia
Secondary diagnosis:
Essential hypertension
Hyperlipidemia
CKD 3A
Anxiety depression
1.1 left adrenal adenoma
Hospital course:
74-year-old female with past medical history of pancreatitis, hypertension, hyperlipidemia, CKD 3, anxiety, hypertension with recent admission for pancreatitis from 01/17 to 01/20 presented to the ED for severe epigastric abdominal pain. Lipase was
within normal limits and imaging unclear whether there is an acute recurrence of her pancreatitis. She was admitted for severe abdominal pain likely secondary to GERD/acute gastritis and provided fluids, Dilaudid and started on Protonix twice
daily. In the afternoon, she developed a fever of 103 and a UA was done concerning for UTI. She was started on ceftriaxone. The next morning, she endorsed pleurisy and crackles were auscultated on physical exam. Chest x-ray was ordered to
evaluate for possible pneumonia which did not reveal any acute findings. Due to high fever and severe epigastric abdominal pain with no clear cause as of yet, there was clinical concern for ascending cholangitis. Ceftriaxone was switched to
cefepime and metronidazole and GI was consulted. GI recommended MRCP to evaluate for possible CBD to explain fever however no acute cause for pain was found on MRCP imaging. Workup for atypical abdominal pain from chest etiology was started. EKG
was nonischemic and troponin were negative. D-dimer slightly elevated at 1.[address] PE was done. CT did not reveal any PE, however it did reveal it did show atelectasis and/or pneumonia. As there was no other clear cause for fever,
switch patient to ceftriaxone and Doxy to cover pneumonia. Patient did start to complain of some dysphagia after being upgraded to low residue diet. With no other explanation for the midepigastric pain, GI opted to do and endoscopy. They found an
esophageal ulcer which explained the patients abdominal pain.
Today, the patient is stable for discharge. She completed 6 days of antibiotics in the hospital. Discharge on an additional 4 days of doxycycline 100mg BID to complete a 10 day course along with pantoprazole 40mg BID until she follows up with GI for
the esophageal biopsy results.
Imaging:
CT abdomen pelvis with IV contrast 02/10/2025:
Colonic diverticulosis, most prominent sigmoid, without gross accompanying inflammatory changes. No intestinal obstruction or free air.
Recent history of acute pancreatitis with minimal ill-defined hypodensity seen in the pancreatic head in comparison to recent prior CT, cannot exclude some residual minor/recurrent changes of acute pancreatitis or developing tiny pseudocyst.
Symmetric renal excretion. Small bilateral simple renal cysts as well as additional subcentimeter low-attenuation renal lesions too small to characterize.
Prior cholecystectomy, appendectomy and hysterectomy.
Soft tissues of the true pelvis including the urinary bladder significantly obscured by beam hardening artifact from bilateral hip arthroplasties.
Abdomen pelvis CT with IV contrast 02/01/2025:
Significant decrease in changes of acute pancreatitis in the interval since recent prior CT. No well-formed abnormal focal peripancreatic fluid collection.
Sigmoid diverticulosis significantly obscured by beam hardening artifact from bilateral hip arthroplasties. No intestinal obstruction or free air.
Simple renal cysts as well as additional bilateral subcentimeter low-attenuation renal lesions too small to characterize.
Prior cholecystectomy, appendectomy and hysterectomy. Mild intrahepatic biliary tract dilatation most likely the sequela of prior cholecystectomy. Suggest correlation with LFTs.
Abdominal MRI with and without contrast 02/12/2025:
IMPRESSION:
1. Mild intrahepatic and extrahepatic biliary dilatation.
2. No evidence for choledocholithiasis.
3. Previous cholecystectomy.
4. Mild diffuse pancreatic parenchymal atrophy.
5. Moderate chronic bilateral renal disease.
6. 1.1 cm left adrenal adenoma.
7. Small hiatal hernia.
8. Moderate diverticulosis in the sigmoid colon.
9. Severe multilevel lumbar discogenic degenerative disease.
10. Mild airspace consolidation in the basilar segments of both lower lobes.
Chest CT PE 02/12/2025:
There is significant motion artifact, which limits evaluation of the pulmonary arteries.
No evidence of pulmonary embolism to the lobar branching level.
If there are persistent clinical symptoms highly suggestive of pulmonary embolism, consideration could be given to a repeat examination. Perhaps ECG gating would improve the degree of motion artifact.
Trace amount of pleural fluid bilaterally.
Patchy parenchymal opacity within the posterior aspect of both lower lobes of the lungs, with differential considerations of atelectasis and/or pneumonia.
Endoscopy 02/15/2025:
- Normal esophagus.
- Esophageal ulcers. Biopsied.
- Mucosal nodule found in the esophagus. Biopsied.
- Normal stomach.
- A few gastric polyps.
- Normal examined duodenum.
Discharge Plan
-
Patient Disposition: Home (Routine Discharge)
Discharge Diagnosis/Procedures: Esophageal ulcer
Sepsis secondary to pneumonia with acute metabolic dysfunction of acute hypoxemic respiratory failure
Hypokalemia
Hypomagnesemia
Hypertension
Hyperlipidemia
Chronic kidney disease stage IIIa
Headache
Diverticulosis
Severe multi lumbar degenerative disc disease
Hiatal hernia
History of parathyroidectomy
Adrenal adenoma
Anxiety and depression
Condition: Fair
Diet: As tolerated
Activity: As tolerated
Driving Restrictions: As prior to admission
Other Services: PT
Instructions: Peptic ulcers
Referrals:
Wilda Reynolds MD [Family Provider, Family Practice] - in one week
Denny Orr MD [Active, Gastroenterology] - in two weeks
Referral Note: Esophageal biopsy results
Additional Discharge Medication Instructions: Please take your doxycycline 100mg twice daily with food.
Please follow-up with GI in 2 weeks to discuss esophageal biopsy results and follow-up on abdominal pain.
There was a very small nodule on your adrenal gland. These are often not of concern, but please follow up with your primary care doctor for further evaluation and follow up.
Prescriptions:
New
doxycycline hyclate 100 mg Capsule
100 mg PO Q12 4 Days Qty: 8 0RF
pantoprazole 40 mg tablet,delayed release (DR/EC)
40 mg PO BID Qty: 60 0RF
Continued
pravastatin 40 mg Tablet
40 mg PO HS
trazodone 50 mg tablet
75 mg PO HS
baclofen 10 mg tablet
10 mg PO TIDPRN PRN (Reason: spasms)
polyethylene glycol 3350 [Miralax] 17 gram Powder In Packet
17 g PO DAILYPRN PRN (Reason: constipation)
acetaminophen [Tylenol Extra Strength] 500 mg Tablet
1,000 mg PO Q6HPRN PRN (Reason: mild pain)
nifedipine 60 mg tablet extended release
60 mg PO BID
Discharge Date and Time
Print Language: SAMI
[2025-02-15 15:25] VITALS: BP 161/67
[2025-02-15 17:23] LABS: Potassium 3.9 mmol/L (3.5-5.1)
[2025-02-15] MEDS: ROCEPHIN 2000 MG IV (17:28)
[2025-02-15] MEDS: STERILE WATER FOR INJECTION 20 ML IV (17:28)
[2025-02-15] MEDS: BENADRYL 25 MG IV (17:47)
== END 2025-02-15 19:10 | disposition home or self-care (01) | DRG 871 ==
LOC: 4 WEST ACU 11:41
PROVIDERS: General Practice; Internal Medicine Gastroenterology; Registered Nurse; ADMITTING PHYSICIAN Hospitalist; ATTENDING PHYSICIAN Hospitalist; CONSULT PHYSICIAN Specialist; EMERGENCY PHYSICIAN Emergency Medicine; FAMILY PHYSICIAN Family Medicine
PROC: 0DB48ZX Excision of Esophagogastric Junction, Via Natural or Artificial Opening Endoscopic, Diagnostic (ICD-10-PCS; 2025-02-15)
DX: A41.9 Sepsis, unspecified organism (principal); J18.9 Pneumonia, unspecified organism; J96.01 Acute respiratory failure with hypoxia; N39.0 Urinary tract infection, site not specified; K22.10 Ulcer of esophagus without bleeding; Z87.891 Personal history of nicotine dependence; R65.20 Severe sepsis without septic shock; Z11.52 Encounter for screening for COVID-19; E87.6 Hypokalemia; E83.42 Hypomagnesemia; I12.9 Hypertensive chronic kidney disease with stage 1 through stage 4 chronic kidney disease, or unspecified chronic kidney disease; N18.31 Chronic kidney disease, stage 3a; F41.9 Anxiety disorder, unspecified; F32.A Depression, unspecified; K31.7 Polyp of stomach and duodenum; K29.00 Acute gastritis without bleeding
CPT/HCPCS: 71046; 71275; 74177; 74183; 80053; 81003; 81015; 83605; 83690; 83735; 84132; 84484; 85025; 85379; 86140; 87040; 87086; 87502; 87811; 88305; 88342; 93005; 93970; 96361; 96374; 96375; 96376; 97116; 97162; 97166; 97530; 99285; A9575; Q9967

== ENCOUNTER → 2025-02-18 07:28 | Outpatient (REF) | payer MEDICARE, OTHER, SELFPAY ==
[2025-02-18 09:01] LABS: Blood Urea Nitrogen 17 mg/dl (7-17); Calcium 9.5 mg/dl (8.4-10.2); Chloride 105 mmol/L (98-107); Glucose 95 mg/dl (70-99); Potassium 3.9 mmol/L (3.5-5.1); Sodium 140 mmol/L (135-145); eGFR 47.21
[2025-02-18 09:11] LABS: Carbon Dioxide 27 mmol/L (22-30)
== END ==
LOC: REG 07:28
PROVIDERS: FAMILY PHYSICIAN Family Medicine; REFERRING PHYSICIAN Internal Medicine Gastroenterology
DX: E87.6 Hypokalemia (principal)
CPT/HCPCS: 36415; 80048

== ENCOUNTER → 2025-03-14 07:51 | Outpatient (REF) | payer MEDICARE, OTHER, SELFPAY | LOC: HWRAD 07:51 | PROVIDERS: ATTENDING PHYSICIAN Family Medicine | DX: J18.9 Pneumonia, unspecified organism (principal) | CPT/HCPCS: 71046 ==